=== PATIENT | female | born 2000 | race Two or more races ===

== ENCOUNTER 2021-08-14 20:44 | Emergency (ER) | payer OTHER, SELFPAY ==
[2021-08-14 20:51] VITALS: BP 117/52; PULSE 95; RESP 20; TEMP 36.5; O2SAT 97; BMI 22.7
[2021-08-14 21:27] LABS: COVID-19 Test Negative (Negative)
[2021-08-15 02:17] VITALS: BP 110/58; PULSE 91; RESP 18; O2SAT 98
--- NOTE | 2021-08-15 04:03 | ED.GENADULT ---
HPI - General Adult General Chief complaint: Upper Respiratory Symptoms Stated complaint: left ear pain Time Seen by Provider: 08/15/21 03:51 Source: patient Mode of arrival: ambulatory Limitations: no limitations History of Present Illness HPI narrative: 21-year-old female who presents emergency department for evaluation of right ear pain x4 days, sore throat, cough, rhinorrhea. Patient states that she has had pain in her right ear for approximately 4 days. She states the pain is intermittent, sharp worse if she pushes on her right ear. The pain is 8/10 at its worst. She also states she has some slight decreased hearing in her right ear. She has had a runny nose and a nonproductive cough. She states she also has a sore throat. She denied chest pain, shortness of breath, dyspnea on exertion. She states that when she was a child she used to get frequent ear infections. She did have myringotomy tubes. Related Data Previous Rx's Medication Instructions Recorded amoxicillin 500 mg capsule 1,000 mg PO BID 10 Days #40 cap 08/15/21 zqbamlwy-cnulyrjrw-kgjyojeap 3.5 4 drp OTIC (EAR) LEFT TID 10 Days 08/15/21 mg-10,000 unit/mL-1 % ear #10 ml drops,susp Allergies Allergy/AdvReac Type Severity Reaction Status Date / Time No Known Allergies Allergy Unverified 05/16/20 16:47 [No Known Allergies*] Review of Systems Review of Systems: Yes all other systems are reviewed and are negative [facility] Past Medical History [facility] Narrative: Past medical history: Frequent ear infections as a child with myringotomy tubes. Past surgical history: Myringotomy tubes. Social history: She states she works in a [employer]. denies tobacco use, she does not drink alcohol and she does not use drugs. Social History Social History Alcohol intake: never Patient Tobacco Use Status: Never used Tobacco Smoked in Last 30 Days: No Advance Directives: No Physical Exam Vital Signs: Vital Signs: Last Vital Signs Temp 97.7 F 08/14/21 20:51 Pulse 91 08/15/21 02:17 Resp 18 08/15/21 02:17 BP 110/58 L 08/15/21 02:17 Pulse Ox 98 08/15/21 02:17 BMI result Body Mass Index 22.7 Const: General: cooperative and no acute distress Orientation/consciousness: oriented to person and oriented to place Limitations: no limitations HENMT: Head: Yes normal to inspection, Yes normocephalic and Yes atraumatic Ears: external ear abnormal auricular tenderness and pain with movement of external ear and TM abnormal (Right) bulging, erythematous and with loss of landmarks General nose exam: Normal external nose present Face and sinus: Yes normal facial exam Mouth: Normal oral and palatal mucosa present Throat: Yes posterior oropharynx normal Eyes: General: appearance normal, both eyes and all related structures Pupils: Equal, round and reactive pupils present Neck: Neck: Yes normal visual inspection, Yes no lymphadenopathy, Yes trachea midline and Yes supple Chest: Chest palpation & inspection: normal inspection of the chest and normal palpation of entire chest wall Resp: Effort & Inspection: normal respiratory effort and able to speak in complete sentences Auscultation: clear to auscultation bilaterally Cardio: Rate: regular rate Rhythm: regular rhythm Heart sounds: S1 normal heart sound present, S2 normal heart sound present and no murmurs GI: Inspection: Yes normal to inspection Palpation (GI): Soft to palpation, nontender and no guarding Auscultation: normal bowel sounds : General: Yes no CVA tenderness Back/Spine/Pelvis: Back: no CVA tenderness Skin: General skin exam: no rashes or lesions noted Neuro: General: oriented to person and oriented to place Cranial nerves: Yes CN's II-XII intact bilaterally and Yes Equal, round and reactive pupils present Cognition (Neuro): normal cognition Motor exam (neuro): 5/5 motor strength present throughout Extrem: General: Yes normal to inspection Psych: Appearance: grossly normal Speech and movement: Normal speech and movement present Affect: normal affect Attitude: cooperative Thought process: Normal thought process present Thought content: Normal thought content present Course Course Course Narrative: 21-year-old female who presents emergency department for evaluation of right ear pain x4 days, sore throat, cough, rhinorrhea. Initial vital signs and repeat vital signs were unremarkable. Patient's exam did reveal tenderness with palpation of her external ear as well as bulging, erythema and loss of landmarks of the right tympanic membrane. Patient's presentation is consistent with otitis externa and otitis media. Patient was treated with Cortisporin drops 4 drops 3 times a day for 10 days to the right ear and amoxicillin 1000 mg twice a day for 10 days. She was advised to take Tylenol and ibuprofen for pain. She was given printed and verbal instructions and discharged home. Medical Decision Making Lab Data Labs: Lab Results 08/14/21 Range/Units Unknown COVID-19 (NIKOLAS) Negative (Negative) COVID-19 Clin Com See Note Discharge Plan Discharge Clinical Impression: Otitis externa Qualifiers: Otitis externa type: unspecified type Chronicity: acute Laterality: right Qualified Code(s): H60.501 - Unspecified acute noninfective otitis externa, right ear Otitis media Qualifiers: Otitis media type: unspecified Chronicity: acute Qualified Code(s): H66.90 - Otitis media, unspecified, unspecified ear Patient Disposition: Home, Self-Care Instructions: Otitis Externa (ED), How to Use Ear Drops (ED), Ear Infection (ED) Additional Instructions: Your examination revealed that your ear is tender in this is consistent with an external ear infection of the ear canal (otitis externa). Your ear drum is also red and swollen. This is consistent with an infection of the middle ear (otitis media). Use the Cortisporin ear drops, 4 drops 3 times a day in the right ear for 10 days. Take amoxicillin 1000 mg twice a day for 10 days. Take ibuprofen 200 mg pills, 3 pills every 6 hours as needed for pain. Take Tylenol (acetaminophen) 500 mg pills, 2 pills every 4 to 6 hours as needed for pain. Follow-up with your doctor in 2 days. Please return to the emergency department if your symptoms get worse or if you develop any symptoms that are concerning to you. Please see work note. Prescriptions: New amoxicillin 500 mg capsule 1,000 mg PO BID 10 Days Qty: 40 RF: 0 ynxuhvcp-ulmxnytqp-DE 3.5-10,000-1 mg/mL-unit/mL-% drops,suspension 4 drp otic (ear) left TID 10 Days Qty: 10 RF: 0 Stand Alone Forms: Work/School Release Interventions: LWBS Worksheet Last Done: 08/14/21 23:30
== END 2021-08-15 04:34 | disposition home or self-care (01) ==
PROVIDERS: Emergency Provider Emergency Medicine Emergency Medical Services
DX: H60.501 Unspecified acute noninfective otitis externa, right ear (principal); H66.91 Otitis media, unspecified, right ear; Z20.822 Contact with and (suspected) exposure to COVID-19; J02.9 Acute pharyngitis, unspecified
CPT/HCPCS: 36415; 87635; 99283; 99284

== ENCOUNTER 2021-09-23 10:39 | Outpatient (REF) | payer OTHER, SELFPAY ==
[2021-09-23 11:10] LABS: Binax Internal Control QC Valid; Binax Now Covid-19 Ag Negative (Negative)
== END 2021-09-23 10:40 | disposition home or self-care (01) ==
LOC: HO.LAB 10:39
PROVIDERS: Visit Provider Internal Medicine
DX: Z20.822 Contact with and (suspected) exposure to COVID-19 (principal)
CPT/HCPCS: C9803

== ENCOUNTER 2021-10-07 17:45 | Emergency (ER) | payer OTHER, SELFPAY ==
[2021-10-07 17:47] VITALS: BP 111/66; PULSE 77; RESP 18; TEMP 36.4; O2SAT 97; BMI 27.9
--- NOTE | 2021-10-07 21:04 | ED_ITS ---
HPI - General Adult General Chief complaint: Skin/Abscess/Foreign Body Stated complaint: neck was burnt on neck Time Seen by Provider: 10/07/21 21:00 Source: patient Mode of arrival: ambulatory Limitations: no limitations History of Present Illness HPI narrative: 21-year-old female presents to the ED for left lateral neck burn. Patient states she was at work and a glass bottle broke and hot tea fell on the left side of her neck. Patient states this occurred around 3:30 p.m. she denies any other trauma. Patient states she put cool water on area and got better. Patient unaware of last tetanus shot. Patient has no other complaints. Patient rash has no blisters, weeping, redness, pus discharge, or foul odor. Related Data Previous Rx's Medication Instructions Recorded amoxicillin 500 mg capsule 1,000 mg PO BID 10 Days #40 cap 08/15/21 iysymlry-xqcjbjmqu-kqjzhaaus 3.5 4 drp OTIC (EAR) LEFT TID 10 Days 08/15/21 mg-10,000 unit/mL-1 % ear #10 ml drops,susp bacitracin 500 unit/gram topical 1 appl TOPICAL TID 7 Days #30 g 10/07/21 ointment Allergies Allergy/AdvReac Type Severity Reaction Status Date / Time No Known Allergies Allergy Verified 10/07/21 17:47 [No Known Allergies*] Review of Systems Review of Systems: Neck burn Yes all other systems are reviewed and are negative [facility] Social History Social History Alcohol intake: never Patient Tobacco Use Status: Never used Tobacco Advance Directives: No Advance Directives Information Provided: Yes Patient : No Physical Exam Vital Signs: Vital Signs: Last Vital Signs Temp 97.5 F 10/07/21 17:47 Pulse 77 10/07/21 17:47 Resp 18 10/07/21 17:47 BP 111/66 10/07/21 17:47 Pulse Ox 97 10/07/21 17:47 BMI result Body Mass Index 27.9 Const: General: cooperative, healthy appearing, comfortable, no acute distress, well developed, alert, awake and Physically active Or ientation/consciousness: patient oriented x3 HENMT: Head: Yes normal to inspection, Yes No palpable skull fracture present, Yes normocephalic, Yes atraumatic and No abrasion Eyes: General: appearance normal, both eyes and all related structures Neck: Neck images: 1. 1st degree superficial burn. Negative for any blisters. Burn is not circumferential. Chest: Chest palpation & inspection: normal inspection of the chest and normal palpation of entire chest wall Resp: Effort & Inspection: normal respiratory effort and able to speak in complete sentences Auscultation: clear to auscultation bilaterally Cardio: Jugular venous distension: no JVD Heart sounds: S1 normal heart sound present and S2 normal heart sound present GI: Inspection: Yes normal to inspection and No abdominal wall ecchymosis Palpation (GI): Soft to palpation, not firm, nontender, no guarding and not rigid : General: No CVA tenderness and Yes no CVA tenderness Back/Spine/Pelvis: Back: no CVA tenderness, No CVA tenderness and No back tenderness Skin: General skin exam: no rashes or lesions noted and elasticity normal Neuro: General: patient oriented x3, gait normal and CN's II-XI intact bilaterally Cranial nerves: Yes CN's II-XII intact bilaterally Extrem: General: Yes normal to inspection and Yes full ROM Psych: Appearance: grossly normal, well kempt and not disheveled Course Course Course Narrative: First degree burn. Reevaluation(s) Reevaluation #1: Tetanus ordered. Patient given bacitracin ointment. Patient is safe for discharge Time: 21:07 Medical Decision Making MDM Narrative Medical decision making narrative: 1st degree thermal burn Discharge Plan Discharge Clinical Impression: First degree burn, Thermal burn Patient Disposition: Home, Self-Care Instructions: Superficial Burn (ED) Additional Instructions: Return to the ED immediately for neck swelling, blisters, pus discharge, foul odor, fever, chills, chest pain, shortness of breath, drooling, change in voice, or any other concerning symptoms. Prescriptions: New bacitracin 500 unit/gram ointment 1 appl topical TID 7 Days Qty: 30 0RF No Action amoxicillin 500 mg capsule 1,000 mg PO BID 10 Days Qty: 40 0RF cvupsfdd-zmieaeyly-DJ 3.5-10,000-1 mg/mL-unit/mL-% drops,suspension 4 drp otic (ear) left TID 10 Days Qty: 10 0RF Referrals: [facility] [Outside] - 2 days (1st degree thermal burn on lateral neck occured at work) Stand Alone Forms: Work/School Release Interventions: ED Discharge Assessment Last Done: 10/07/21 21:25 Discharge Date/Time: 10/07/21 21:28 Print Language: Maltese
[2021-10-07] MEDS: Diphth,Pertus(ACell),Tet Adult 0.5 ML SYRINGE IM (21:19)
== END 2021-10-07 21:28 | disposition home or self-care (01) ==
PROVIDERS: Emergency Provider Internal Medicine; PCP Internal Medicine
DX: T20.17XA Burn of first degree of neck, initial encounter (principal); T31.0 Burns involving less than 10% of body surface; M54.2 Cervicalgia; X12.XXXA Contact with other hot fluids, initial encounter; Y93.9 Activity, unspecified; Y92.9 Unspecified place or not applicable; Y99.0 Civilian activity done for income or pay; Z79.899 Other long term (current) drug therapy
CPT/HCPCS: 90471; 90715; 99284

== ENCOUNTER 2021-11-23 23:39 | Emergency (ER) | payer OTHER, SELFPAY ==
--- NOTE | 2021-11-23 23:52 | ECG_ITS ---
Test Reason : chest pain Blood Pressure : / mmHG Vent. Rate : 082 BPM Atrial Rate : 082 BPM P-R Int : 160 ms QRS Dur : 072 ms QT Int : 374 ms P-R-T Axes : 057 -01 035 degrees QTc Int : 436 ms Normal sinus rhythm Minimal voltage criteria for LVH, may be normal variant ( R in aVL ) Borderline ECG No previous ECGs available Referred By: Generic ED Physician Electronically Signed By:LUCÍA COX
[2021-11-23 23:54] VITALS: BP 106/41; PULSE 74; RESP 18; TEMP 36.6; O2SAT 96; BMI 26.3
--- NOTE | 2021-11-24 00:04 | ED_ITS ---
HPI - Chest Pain General Chief Complaint: Chest Pain Stated Complaint: Chest Pain Time Seen by Provider: 11/24/21 00:04 Source: patient Mode of arrival: ambulatory Limitations: no limitations History of Present Illness HPI narrative: Patient no significant past medical history complaining of pain in mid chest for last few weeks increases on movement and palpation no shortness of breath no trauma no cough no fever no chills Related Data Previous Rx's Medication Instructions Recorded amoxicillin 500 mg capsule 1,000 mg PO BID 10 Days #40 cap 08/15/21 rhetdxkm-ozecmmreo-pwuxokrpj 3.5 4 drp OTIC (EAR) LEFT TID 10 Days 08/15/21 mg-10,000 unit/mL-1 % ear #10 ml drops,susp bacitracin 500 unit/gram topical 1 appl TOPICAL TID 7 Days #30 g 10/07/21 ointment ibuprofen 600 mg tablet 600 mg PO Q6H PRN #20 tab 11/24/21 Allergies Allergy/AdvReac Type Severity Reaction Status Date / Time No Known Allergies Allergy Verified 10/07/21 17:47 [No Known Allergies*] Review of Systems Review of Systems: Yes all other systems are reviewed and are negative [facility] Social History Social History Alcohol intake: never Patient Tobacco Use Status: Never used Tobacco Advance Directives: No Advance Directives Information Provided: No Physical Exam Vital Signs: Vital Signs: Last Vital Signs Temp 97.9 F 11/23/21 23:54 Pulse 76 11/24/21 00:07 Resp 19 11/24/21 00:07 BP 124/48 L 11/24/21 00:07 Pulse Ox 97 11/24/21 00:07 BMI result Body Mass Index 26.3 Appearance: Alert. Oriented X3. No acute distress. ENT: Pharynx normal. Oral Mucosa moist Neck: Normal inspection. Neck supple. CVS: Normal heart rate and rhythm. Pulses normal. Respiratory: No respiratory distress. Second ICS tenderness, Equal air entry bilateral, no wheezing/rales/rhonchi Abdomen: Soft and nontender. Bowel sounds are present, no mass palpable, no CVA tenderness Skin: Skin warm and dry. Normal skin color. Normal skin turgor. Extremities: No lower extremity edema. No calf tenderness Neuro: Oriented X 3. MDM - Chest Pain MDM Narrative Medical decision making narrative: Patient clinically costochondritis with no risk factor for coronary artery disease discharge patient home on NSAID Lab Data Attestation: I reviewed the patient's lab results. Result diagrams: 11/24/21 00:01 11/24/21 00:01 Labs: Lab Results 11/24/21 11/24/21 11/24/21 Range/Units 00:01 00:01 00:01 WBC 8.7 (4.8-10.8) X10*3/uL RBC 4.42 (4.20-5.50) X10*6/uL Hgb 12.1 (12.0-16.0) g/dl Hct 36.5 L (37.0-47.0) % MCV 82.6 (80.0-98.0) fL MCH 27.4 (27.0-33.0) pg MCHC 33.2 (31.0-35.0) g/dl RDW 14.5 (11.0-16.0) % Plt Count 262 (160-400) X10*3/uL MPV 10.6 (9.4-12.3) fL Immature Gran % (Auto) 0.2 (0.0-0.4) % Neut % (Auto) 52.4 (45-73) % Lymph % (Auto) 39.0 (20-40) % [place] % (Auto) 6.1 (2-11) % Eos % (Auto) 1.4 (0-4) % Baso % (Auto) 0.9 (0-2) % Lymph # (Auto) 3.4 (1.2-4.9) X10*3/uL [place] # (Auto) 0.5 (0.1-1.2) X10*3/uL Eos # (Auto) 0.1 (0.0-0.4) X10*3/uL Baso # (Auto) 0.1 (0.0-0.2) X10*3/uL Abs Immat Gran (auto) 0.02 (0.00-0.03) X10*3/uL Absolute Neuts (auto) 4.5 (2.0-8.3) x10*3/uL Absolute Nucleated RBC 0.000 (0.0-0.012) X10*3/uL Nucleated RBC % (auto) 0.0 (0.0-0.2) /100WBC Sodium 140 (135-145) mmol/L Potassium 4.0 (3.3-5.1) mmol/L Chloride 106 (96-108) mmol/L Carbon Dioxide 24 (22-29) mmol/L Anion Gap 14 (12-20) BUN 15 (9-16) mg/dL Creatinine 0.74 (0.5-1.4) mg/dL Estim Creat Clear Calc 130.1 Estimated GFR > 60 Random Glucose 72 (60-115) mg/dL Calcium 9.4 (8.4-10.2) mg/dL Total Bilirubin 0.2 (0.0-1.0) mg/dL Direct Bilirubin < 0.2 (0.0-0.5) mg/dL AST 18 (5-31) U/L ALT 16 (0-31) U/L Alkaline Phosphatase 93 (39-117) U/L Troponin I High Sens < 3.5 (<3.5-17.0) ng/L Total Protein 8.1 H (6.5-8.0) g/dL Albumin 4.2 (3.5-5.0) g/dL Lipase 39 (8-78) U/L Urine Color Urine Appearance Urine pH (5.0-8.0) Ur Specific [place] (1.005-1.025) Urine Protein (NEG-TRACE) MG/DL Urine Glucose (UA) (NEG) MG/DL Urine Ketones (NEG) MG/DL Urine Blood (NEG) Urine Nitrite (NEG) Ur Leukocyte Esterase (NEG) 11/24/21 Range/Units 00:07 WBC (4.8-10.8) X10*3/uL RBC (4.20-5.50) X10*6/uL Hgb (12.0-16.0) g/dl Hct (37.0-47.0) % MCV (80.0-98.0) fL MCH (27.0-33.0) pg MCHC (31.0-35.0) g/dl RDW (11.0-16.0) % Plt Count (160-400) X10*3/uL MPV (9.4-12.3) fL Immature Gran % (Auto) (0.0-0.4) % Neut % (Auto) (45-73) % Lymph % (Auto) (20-40) % [place] % (Auto) (2-11) % Eos % (Auto) (0-4) % Baso % (Auto) (0-2) % Lymph # (Auto) (1.2-4.9) X10*3/uL [place] # (Auto) (0.1-1.2) X10*3/uL Eos # (Auto) (0.0-0.4) X10*3/uL Baso # (Auto) (0.0-0.2) X10*3/uL Abs Immat Gran (auto) (0.00-0.03) X10*3/uL Absolute Neuts (auto) (2.0-8.3) x10*3/uL Absolute Nucleated RBC (0.0-0.012) X10*3/uL Nucleated RBC % (auto) (0.0-0.2) /100WBC Sodium (135-145) mmol/L Potassium (3.3-5.1) mmol/L Chloride (96-108) mmol/L Carbon Dioxide (22-29) mmol/L Anion Gap (12-20) BUN (9-16) mg/dL Creatinine (0.5-1.4) mg/dL Estim Creat Clear Calc Estimated GFR Random Glucose (60-115) mg/dL Calcium (8.4-10.2) mg/dL Total Bilirubin (0.0-1.0) mg/dL Direct Bilirubin (0.0-0.5) mg/dL AST (5-31) U/L ALT (0-31) U/L Alkaline Phosphatase (39-117) U/L Troponin I High Sens (<3.5-17.0) ng/L Total Protein (6.5-8.0) g/dL Albumin (3.5-5.0) g/dL Lipase (8-78) U/L Urine Color YELLOW Urine Appearance CLEAR Urine pH 7.0 (5.0-8.0) Ur Specific [place] 1.025 (1.005-1.025) Urine Protein NEG (NEG-TRACE) MG/DL Urine Glucose (UA) NEG (NEG) MG/DL Urine Ketones NEG (NEG) MG/DL Urine Blood NEG (NEG) Urine Nitrite NEG (NEG) Ur Leukocyte Esterase NEG (NEG) ECG Data ECG #1: Attestation: I personally reviewed and interpreted this ECG as follows: Interpretation: Normal sinus rhythm heart rate 82 beats per minute normal intervals normal axis no acute history of itching no acute ischemia Discharge Plan Discharge Clinical Impression: Costalchondritis Patient Disposition: Home, Self-Care Instructions: Costochondritis (ED) Additional Instructions: Take ibuprofen for pain Follow-up with your PCP as needed Prescriptions: New ibuprofen 600 mg tablet 600 mg PO Q6H PRN (Reason: pain) Qty: 20 0RF No Action amoxicillin 500 mg capsule 1,000 mg PO BID 10 Days Qty: 40 0RF cmjxwoeo-zwujnylcm-EL 3.5-10,000-1 mg/mL-unit/mL-% drops,suspension 4 drp otic (ear) left TID 10 Days Qty: 10 0RF bacitracin 500 unit/gram ointment 1 appl topical TID 7 Days Qty: 30 0RF Interventions: ED Discharge Assessment Last Done: 11/24/21 00:33
[2021-11-24 00:06] LABS: Basophils Absolute Auto 0.1 X10*3/uL (0.0-0.2); Basophils Percent Auto 0.9 % (0-2); Eosinophils Absolute Auto 0.1 X10*3/uL (0.0-0.4); Eosinophils Percent Auto 1.4 % (0-4); Hematocrit 36.5 % (37.0-47.0); Hemoglobin 12.1 g/dl (12.0-16.0); Imm Gran Abs Auto 0.02 X10*3/uL (0.00-0.03); Imm Gran Pct Auto 0.2 % (0.0-0.4); Lymphocytes Absolute Auto 3.4 X10*3/uL (1.2-4.9); MANUAL DIFF FLAG NO; Mean Corpuscular HGB Conc 33.2 g/dl (31.0-35.0); Mean Corpuscular Hemoglobin 27.4 pg (27.0-33.0); Mean Corpuscular Volume 82.6 fL (80.0-98.0); Mean Platelet Volume 10.6 fL (9.4-12.3); Monocytes Absolute Auto 0.5 X10*3/uL (0.1-1.2); Monocytes Percent Auto 6.1 % (2-11); Neutrophils Absolute Auto 4.5 x10*3/uL (2.0-8.3); Neutrophils Percent Auto 52.4 % (45-73); Platelet Count 262 X10*3/uL (160-400); Red Blood Count 4.42 X10*6/uL (4.20-5.50); Red Cell Distribution Width 14.5 % (11.0-16.0); White Blood Count 8.7 X10*3/uL (4.8-10.8)
[2021-11-24 00:07] VITALS: BP 124/48; PULSE 76; RESP 19; O2SAT 97
[2021-11-24 00:15] LABS: Appearance Urine CLEAR; Color Urine YELLOW; Glucose Urine UA NEG (NEG); Leukocyte Esterase Urine NEG (NEG); Nitrite Urine NEG (NEG); Specific Gravity - Urine 1.025 (1.005-1.025); Urine Blood NEG (NEG); Urine Ketones NEG (NEG); Urine Protein NEG (NEG-TRACE)
[2021-11-24 00:23] LABS: Alanine Aminotransferase 16 U/L (0-31); Albumin Level 4.2 g/dL (3.5-5.0); Alkaline Phosphatase 93 U/L (39-117); Anion Gap 14 (12-20); Aspartate Amino Transferase 18 U/L (5-31); Bilirubin Direct < 0.2 mg/dL (0.0-0.5); Bilirubin Total 0.2 mg/dL (0.0-1.0); Blood Urea Nitrogen 15 mg/dL (9-16); Calcium 9.4 mg/dL (8.4-10.2); Carbon Dioxide 24 mmol/L (22-29); Chloride 106 mmol/L (96-108); Creatinine Clr Calc Pharmacy 130.1; Estimated Glomerular Filt Rate > 60; Glucose Random 72 mg/dL (60-115); Lipase 39 U/L (8-78); Sodium 140 mmol/L (135-145); Total Protein 8.1 g/dL (6.5-8.0)
[2021-11-24 00:27] LABS: Troponin-I High Sensitivity < 3.5 ng/L (<3.5-17.0)
[2021-11-24] MEDS: Ketorolac Tromethamine 60 MG/2 ML VIAL IM (00:29)
--- NOTE | 2021-11-24 00:31 | PC.NURSE ---
Pt medicated with 60mg toradol IM. Skin wd, resp reg and even. NSR on tele, NAD.
== END 2021-11-24 00:36 | disposition home or self-care (01) ==
PROVIDERS: Emergency Provider Internal Medicine; PCP Internal Medicine
DX: M94.0 Chondrocostal junction syndrome [Tietze] (principal)
CPT/HCPCS: 36415; 80048; 80076; 81003; 83690; 84484; 85025; 93005; 96372; 99284; 99285; J1885

== ENCOUNTER 2022-03-03 20:24 | Emergency (ER) | payer OTHER, SELFPAY ==
--- NOTE | ~2022-03-03 | XR_ITS ---
EXAMINATION: XR CHEST CLINICAL INFORMATION: Chest tightness COMPARISON: None TECHNIQUE: Frontal view of the chest was obtained. FINDINGS: No significant abnormality is noted involving the heart, lungs, mediastinum, bony thorax or soft tissues. XR/XR chest 1V IMPRESSION: Unremarkable examination.
[2022-03-03 20:53] VITALS: BMI 27.1
--- NOTE | 2022-03-03 20:54 | ECG_ITS ---
Test Reason : CHEST PAIN Blood Pressure : / mmHG Vent. Rate : 073 BPM Atrial Rate : 073 BPM P-R Int : 164 ms QRS Dur : 072 ms QT Int : 382 ms P-R-T Axes : 042 -11 016 degrees QTc Int : 420 ms Normal sinus rhythm Minimal voltage criteria for LVH, may be normal variant ( R in aVL ) Borderline ECG When compared with ECG of 23-NOV-2021 23:41, No significant change was found Referred By: Generic ED Physician Electronically Signed By:Maldonado Cao
[2022-03-03 21:20] LABS: COVID-19 Test Negative (Negative)
[2022-03-03 22:16] VITALS: BP 115/57; PULSE 84; RESP 20; TEMP 36.2; O2SAT 99; BMI 21.1
[2022-03-03 23:30] LABS: Influenza A Negative (Negative); Influenza B2 Negative (Negative)
[2022-03-03 23:53] LABS: UPreg QC Valid YES; Urine Pregnancy NEGATIVE (NEGATIVE)
[2022-03-04 00:57] VITALS: BP 117/54; PULSE 88; RESP 16; TEMP 36.6; O2SAT 97
--- NOTE | 2022-03-04 01:12 | ED.URI ---
HPI - URI/Sore Throat General Chief Complaint: Upper Respiratory Symptoms Stated Complaint: chest pain, no voice Time Seen by Provider: 03/03/22 21:46 Source: patient Mode of arrival: ambulatory Limitations: no limitations History of Present Illness HPI Narrative: Patient with sore throat for last 2 days lost voice dry cough no fever no chills no history of asthma history of same last year no other significant medical history Related Data Previous Rx's Medication Instructions Recorded amoxicillin 500 mg capsule 1,000 mg PO BID 10 days #40 caps 08/15/21 cslognpm-yfytlapiq-ehhumjcny 3.5 4 drp otic (ear) left TID 10 days 08/15/21 mg-10,000 unit/mL-1 % ear #10 mL drops,susp bacitracin 500 unit/gram topical 1 appl topical TID 7 days #30 grams 10/07/21 ointment ibuprofen 600 mg tablet 600 mg PO Q6H PRN pain #20 tabs 11/24/21 amoxicillin 875 mg-potassium 1 tab PO BID #20 tabs 03/04/22 clavulanate 125 mg tablet codeine 10 mg-guaifenesin 100 mg/5 10 ml PO Q6H PRN cough #237 mL 03/04/22 mL oral liquid Allergies Allergy/AdvReac Type Severity Reaction Status Date / Time No Known Allergies Allergy Verified 10/07/21 17:47 [No Known Allergies*] Review of Systems Review of Systems: Yes all other systems are reviewed and are negative [facility] Social History Social History Alcohol intake: never Patient Tobacco Use Status: Never used Tobacco Advance Directives: No Physical Exam Vital Signs: Vital Signs: Last Vital Signs Temp 97.9 F 03/04/22 00:57 Pulse 88 03/04/22 00:57 Resp 16 03/04/22 00:57 BP 117/54 L 03/04/22 00:57 Pulse Ox 97 03/04/22 00:57 O2 Del Method 03/04/22 00:57 BMI result Body Mass Index 21.1 Appearance: Alert. Oriented X3. No acute distress. ENT: Pharynx normal. Oral Mucosa moist muffled voice Neck: Normal inspection. Neck supple. Upper cervical lymphadenopathy+ CVS: Normal heart rate and rhythm. Pulses normal. Respiratory: No respiratory distress. Equal air entry bilateral, no wheezing/rales/rhonchi Abdomen: Soft and nontender. Bowel sounds are present, Skin: Skin warm and dry. Normal skin color. Normal skin turgor. Extremities: No lower extremity edema. No calf tenderness Neuro: Oriented X 3. MDM - URI/Sore Throat MDM Narrative Medical decision making narrative: Patient with acute laryngitis discharge patient home on Augmentin and cough syrup codeine patient chest x-ray negative for infiltrate Lab Data Labs: Lab Results 03/03/22 03/03/22 03/03/22 Range/Units 21:01 22:03 22:59 Urine Test NEGATIVE (NEGATIVE) COVID-19 ([facility]AS) Negative (Negative) COVID-19 Clin Com See Note Influenza Type A (YURY) Negative (Negative) Influenza Type B (YURY) Negative (Negative) Influenza A & B Note See Note Discharge Plan Discharge Clinical Impression: Laryngitis Patient Disposition: Home, Self-Care Instructions: Laryngitis (ED) Additional Instructions: Take antibiotic as prescribed Cough syrup as advised for the pain Drink plenty of fluids Prescriptions: New codeine-guaifenesin 10-100 mg/5 mL liquid 10 ml PO Q6H PRN (Reason: cough) Qty: 237 0RF amoxicillin-pot clavulanate 875-125 mg tablet 1 tab PO BID Qty: 20 0RF No Action amoxicillin 500 mg capsule 1,000 mg PO BID 10 Days Qty: 40 0RF shqpxgkt-usgjuwwjq-ZT 3.5-10,000-1 mg/mL-unit/mL-% drops,suspension 4 drp otic (ear) left TID 10 Days Qty: 10 0RF bacitracin 500 unit/gram ointment 1 appl topical TID 7 Days Qty: 30 0RF ibuprofen 600 mg tablet 600 mg PO Q6H PRN (Reason: pain) Qty: 20 0RF Stand Alone Forms: Work/School Release
[2022-03-04] MEDS: Amoxicillin/Potassium Clav 875 MG TABLET PO (02:04)
[2022-03-04] MEDS: guaiFEN/Codeine SF 200/20/10ML 10 ML LIQUID PO (02:07)
== END 2022-03-04 02:08 | disposition home or self-care (01) ==
PROVIDERS: Emergency Provider Internal Medicine
DX: J04.0 Acute laryngitis (principal); Z20.822 Contact with and (suspected) exposure to COVID-19; J02.9 Acute pharyngitis, unspecified; J45.909 Unspecified asthma, uncomplicated
CPT/HCPCS: 71045; 81025; 87502; 87635; 93005; 99283

== ENCOUNTER 2022-07-25 22:35 | Emergency (ER) | payer OTHER, SELFPAY ==
[2022-07-25 22:42] VITALS: BP 94/49; PULSE 79; RESP 18; TEMP 36.8; O2SAT 97; BMI 28.3
[2022-07-25 23:33] LABS: Basophils Percent Auto 0.4 % (0-2); Eosinophils Absolute Auto 0.1 X10*3/uL (0.0-0.4); Eosinophils Percent Auto 0.6 % (0-4); Hematocrit 32.9 % (37.0-47.0); Hemoglobin 11.1 g/dl (12.0-16.0); Imm Gran Abs Auto 0.06 X10*3/uL (0.00-0.03); Imm Gran Pct Auto 0.6 % (0.0-0.4); Lymphocytes Absolute Auto 2.8 X10*3/uL (1.2-4.9); Lymphocytes Percent Auto 29.3 % (20-40); MANUAL DIFF FLAG NO; Mean Corpuscular HGB Conc 33.7 g/dl (31.0-35.0); Mean Corpuscular Hemoglobin 28.1 pg (27.0-33.0); Mean Corpuscular Volume 83.3 fL (80.0-98.0); Mean Platelet Volume 11.4 fL (9.4-12.3); Monocytes Absolute Auto 0.5 X10*3/uL (0.1-1.2); Neutrophils Percent Auto 64.1 % (45-73); Platelet Count 201 X10*3/uL (160-400); Red Blood Count 3.95 X10*6/uL (4.20-5.50); Red Cell Distribution Width 13.2 % (11.0-16.0); White Blood Count 9.4 X10*3/uL (4.8-10.8)
--- NOTE | 2022-07-25 23:52 | ED.PREGNANCY ---
HPI - General Chief complaint: Vaginal Bleeding Stated complaint: 23 wks ..bleeding Time Seen by Provider: 07/25/22 23:35 Source: patient Mode of arrival: ambulatory Limitations: no limitations History of Present Illness HPI Narrative: 22-year-old female 23 weeks 3 days based on due date of 11/19/2022 who presents emergency department for evaluation of abdominal cramping and vaginal bleeding. Patient states that she was moving furniture around at home and then developed a cramping sensation in her upper abdomen. She states she went to the bathroom, urinated when she wiped herself she had bright red blood on the toilet paper. She states that she wiped a twice with bright red blood. She states that since arrival in the emergency room, she has been having intermittent cramping of her upper abdomen. She states the cramping will last 5 minutes since she has had multiple episodes. She points to the top of her abdomen when asked to localize the cramping sensation, she states that pain is moderate intensity. The patient has a known vaginal discharge and was told that she has Trichomonas. The patient is supposed to take oral medications for 1 week however she has not picked up the prescription. She states that she was supposed to mixing picker tender the prescription today but back dizzy but will pick it up tomorrow and start this medication MD Complaint: abdominal pain, vaginal bleeding and vaginal discharge Onset (ago): minute(s) (30 prior I) Pain Consistency: intermittent Location: abdomen (Upper Abdo) Severity: moderate Severity scale (1-10): 5 Quality: Cramping Radiation: pelvis Relieving factors: none Exacerbating factors: none Associated symptoms: nausea, vaginal discharge and abdominal pain Vaginal discharge: other (Thick yellow) Vaginal bleeding: light Patient : Yes Expected Date of Delivery: 11/19/22 Number of Weeks : 23w 3d care: followed by OB ([facility]) Related Data Previous Rx's Medication Instructions Recorded amoxicillin 500 mg capsule 1,000 mg PO BID 10 days #40 caps 08/15/21 kdleimsb-yisimpclg-gzetasuto 3.5 4 drp otic (ear) left TID 10 days 08/15/21 mg-10,000 unit/mL-1 % ear #10 mL drops,susp bacitracin 500 unit/gram topical 1 appl topical TID 7 days #30 grams 10/07/21 ointment ibuprofen 600 mg tablet 600 mg PO Q6H PRN pain #20 tabs 11/24/21 amoxicillin 875 mg-potassium 1 tab PO BID #20 tabs 03/04/22 clavulanate 125 mg tablet codeine 10 mg-guaifenesin 100 mg/5 10 ml PO Q6H PRN cough #237 mL 03/04/22 mL oral liquid Allergies Allergy/AdvReac Type Severity Reaction Status Date / Time No Known Allergies Allergy Verified 10/07/21 17:47 [No Known Allergies*] Review of Systems Review of Systems: Yes all other systems are reviewed and are negative [facility] Past Medical History [facility] Narrative: Past medical history: 23 weeks 3 days . Past surgical history: 2 years prior social history: She denies tobacco, alcohol and drug use. Social History Social History Alcohol intake: never Patient Tobacco Use Status: Never used Tobacco Advance Directives: No Advance Directives Information Provided: No Patient : Yes Physical Exam Vital Signs: Vital Signs: Last Vital Signs Temp 98.3 F 07/25/22 22:42 Pulse 79 07/25/22 22:42 Resp 18 07/25/22 22:42 BP 94/49 L 07/25/22 22:42 Pulse Ox 97 07/25/22 22:42 O2 Del Method 07/25/22 22:42 BMI result Body Mass Index 28.3 Const: General: cooperative and no acute distress Orientation/consciousness: oriented to person and oriented to place Limitations: no limitations HEENT: Head: Yes normal to inspection, Yes normocephalic and Yes atraumatic Ears: external ears normal General nose exam: Normal external nose present Face and sinus: Yes normal facial exam Mouth: Normal oral and palatal mucosa present Throat: Yes posterior oropharynx normal Eyes: General: appearance normal, both eyes and all related structures Pupils: Equal, round and reactive pupils present Neck: Neck: Yes normal visual inspection, Yes no lymphadenopathy, Yes trachea midline and Yes supple Chest: Chest palpation & inspection: normal inspection of the chest and normal palpation of entire chest wall Resp: Effort & Inspection: normal respiratory effort and able to speak in complete sentences Auscultation: clear to auscultation bilaterally Cardio: Rate: regular rate Rhythm: regular rhythm Heart sounds: S1 normal heart sound present, S2 normal heart sound present and no murmurs GI: Inspection: Yes normal to inspection Palpation (GI): Soft to palpation, Tenderness to palpation present (GI) (Mild upper abdominal tenderness, gravid uterus) and no guarding Auscultation: normal bowel sounds : Other: External vaginal exam was normal. Speculum exam revealed thick green cervical discharge, cervix is red and inflamed, there was no blood noted in the vagina no blood noted coming from the cervical os cervical os is closed General: Yes no CVA tenderness Back/Spine/Pelvis: Back: no CVA tenderness Skin: General skin exam: no rashes or lesions noted Neuro: General: oriented to person and oriented to place Cranial nerves: Yes CN's II-XII intact bilaterally and Yes Equal, round and reactive pupils present Cognition (Neuro): normal cognition Motor exam (neuro): 5/5 motor strength present throughout Extrem: General: Yes normal to inspection Psych: Appearance: grossly normal Speech and movement: Normal speech and movement present Affect: normal affect Attitude: cooperative Thought process: Normal thought process present Thought content: Normal thought content present Course Course Course Narrative: 22-year-old female 23 weeks 3 days by date, EDC 11/19/2022 who presents emergency department for evaluation of abdominal cramping and bleeding which started after she was moving furniture. Patient describes the cramping as intermittent lasting 5 minutes she has had a least 5 episodes since being in the emergency department. Patient's physical examination revealed tenderness palpation of her upper abdomen, she does have a gravid uterus. Patient's pelvic exam revealed no blood but she does of a thick purulent appearing discharge. She has known Trichomonas and she states that she was supposed to mixing picker tender a prescription today and start the medication but she got too busy. Patient states she will mixing picker tender the prescription tomorrow. Patient's laboratory evaluation revealed mild anemia with an H&H of 11 and 32.9 otherwise was unremarkable. A urinalysis was positive for blood, negative for nitrates, positive for leukocyte esterase. Microscopic revealed 11-20 RBCs, greater than 50 WBCs, 6-10 epithelial cells, trace bacteria. Patient has known Trichomonas and this may explain the positive urinalysis. Patient's blood type is B positive. heart tones were obtained 147 beats per minute. Patient states she can feel the baby moving. 0147: I am concerned the patient may have pre term labor and I did discuss this with [facility] OBGYN however they were unable to accept the patient transfer since they do not have an open NICU at this time. I did discuss transfer with [facility] and they did accept the patient in transfer. We were unable to get a ambulance to transport the patient. I did discuss this with the patient and told her that we could Life Flight her to [facility] however she refused this. She states that her pain is gone and she is no longer bleeding and she wants to go home. I did discuss the possibility of labor with the patient and she understood this discussion. The patient will be discharged home. She states that she will mixing picker tender her medication for the Trichomonas infection tomorrow. I did tell her that if her symptoms return she should have a family member drive her to [facility] where she can be seen by OBGYN patient understood this discussion will be discharged home MDM - OB/Uterine Contractions Lab Data Result diagrams: 07/25/22 23:28 07/25/22 23:28 Labs: Lab Results 07/25/22 07/25/22 07/25/22 Range/Units 23:28 23:28 23:28 WBC 9.4 (4.8-10.8) X10*3/uL RBC 3.95 L (4.20-5.50) X10*6/uL Hgb 11.1 L (12.0-16.0) g/dl Hct 32.9 L (37.0-47.0) % MCV 83.3 (80.0-98.0) fL MCH 28.1 (27.0-33.0) pg MCHC 33.7 (31.0-35.0) g/dl RDW 13.2 (11.0-16.0) % Plt Count 201 (160-400) X10*3/uL MPV 11.4 (9.4-12.3) fL Immature Gran % (Auto) 0.6 H (0.0-0.4) % Neut % (Auto) 64.1 (45-73) % Lymph % (Auto) 29.3 (20-40) % [place] % (Auto) 5.0 (2-11) % Eos % (Auto) 0.6 (0-4) % Baso % (Auto) 0.4 (0-2) % Lymph # (Auto) 2.8 (1.2-4.9) X10*3/uL [place] # (Auto) 0.5 (0.1-1.2) X10*3/uL Eos # (Auto) 0.1 (0.0-0.4) X10*3/uL Baso # (Auto) 0.0 (0.0-0.2) X10*3/uL Abs Immat Gran (auto) 0.06 H (0.00-0.03) X10*3/uL Absolute Neuts (auto) 6.0 (2.0-8.3) x10*3/uL Absolute Nucleated RBC 0.000 (0.0-0.012) X10*3/uL Nucleated RBC % (auto) 0.0 (0.0-0.2) /100WBC Sodium 134 L (135-145) mmol/L Potassium 3.4 (3.3-5.1) mmol/L Chloride 104 (96-108) mmol/L Carbon Dioxide 21 L (22-29) mmol/L Anion Gap 12 (12-20) BUN 6 L (9-16) mg/dL Creatinine 0.60 (0.5-1.4) mg/dL Estim Creat Clear Calc 143.2 Estimated GFR > 60 Random Glucose 116 H (60-115) mg/dL Calcium 8.8 D (8.4-10.2) mg/dL Total Bilirubin 0.3 (0.0-1.0) mg/dL AST 16 (5-31) U/L ALT 9 (0-31) U/L Alkaline Phosphatase 66 (39-117) U/L Total Protein 6.5 (6.5-8.0) g/dL Albumin 3.2 L (3.5-5.0) g/dL Beta HCG, Quant 4899 mIU/mL Urine Color Urine Appearance Urine pH (5.0-9.0) Ur Specific [place] (1.005-1.025) Urine Protein (Neg-Trace) mg/dL Urine Glucose (UA) (Negative) mg/dL Urine Ketones (Negative) mg/dL Urine Blood (Negative) Urine Nitrite (Negative) Ur Leukocyte Esterase (Negative) Urine RBC (0-2) /HPF Urine WBC (0-5) /HPF Ur Squamous Epith Cells (0-2) /HPF Urine Bacteria (None Seen) Hyaline Casts (0-2) /LPF COVID-19 ([facility]KOLAS) (Negative) COVID-19 Clin Com Blood Type 07/25/22 07/26/22 07/26/22 Range/Units 23:28 00:27 00:27 WBC (4.8-10.8) X10*3/uL RBC (4.20-5.50) X10*6/uL Hgb (12.0-16.0) g/dl Hct (37.0-47.0) % MCV (80.0-98.0) fL MCH (27.0-33.0) pg MCHC (31.0-35.0) g/dl RDW (11.0-16.0) % Plt Count (160-400) X10*3/uL MPV (9.4-12.3) fL Immature Gran % (Auto) (0.0-0.4) % Neut % (Auto) (45-73) % Lymph % (Auto) (20-40) % [place] % (Auto) (2-11) % Eos % (Auto) (0-4) % Baso % (Auto) (0-2) % Lymph # (Auto) (1.2-4.9) X10*3/uL [place] # (Auto) (0.1-1.2) X10*3/uL Eos # (Auto) (0.0-0.4) X10*3/uL Baso # (Auto) (0.0-0.2) X10*3/uL Abs Immat Gran (auto) (0.00-0.03) X10*3/uL Absolute Neuts (auto) (2.0-8.3) x10*3/uL Absolute Nucleated RBC (0.0-0.012) X10*3/uL Nucleated RBC % (auto) (0.0-0.2) /100WBC Sodium (135-145) mmol/L Potassium (3.3-5.1) mmol/L Chloride (96-108) mmol/L Carbon Dioxide (22-29) mmol/L Anion Gap (12-20) BUN (9-16) mg/dL Creatinine (0.5-1.4) mg/dL Estim Creat Clear Calc Estimated GFR Random Glucose (60-115) mg/dL Calcium (8.4-10.2) mg/dL Total Bilirubin (0.0-1.0) mg/dL AST (5-31) U/L ALT (0-31) U/L Alkaline Phosphatase (39-117) U/L Total Protein (6.5-8.0) g/dL Albumin (3.5-5.0) g/dL Beta HCG, Quant mIU/mL Urine Color Dark Yellow Urine Appearance Cloudy Urine pH 5.5 (5.0-9.0) Ur Specific [place] >= 1.030 H (1.005-1.025) Urine Protein Trace (Neg-Trace) mg/dL Urine Glucose (UA) Negative (Negative) mg/dL Urine Ketones 15 (Negative) mg/dL Urine Blood Moderate (2+) H (Negative) Urine Nitrite Negative (Negative) Ur Leukocyte Esterase Moderate (2+) H (Negative) Urine RBC 11-20 H (0-2) /HPF Urine WBC >50 H (0-5) /HPF Ur Squamous Epith Cells 6-10 (0-2) /HPF Urine Bacteria Trace (None Seen) Hyaline Casts 3-5 (0-2) /LPF COVID-19 (NI[facility]OLAS) Negative (Negative) COVID-19 Clin Com See Note Blood Type B Positive Procedures Perimortem Number of Weeks : 23w 3d Discharge Plan Discharge Clinical Impression: Second trimester , Abdominal pain, Vaginal bleeding in Patient Disposition: Home, Self-Care Instructions: Threatened Miscarriage (ED) Additional Instructions: Your blood counts revealed mild anemia with a hemoglobin and hematocrit of 11 and 32.9. Your blood type is B positive. You had good heart tones at 147 beats per minute. 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 Sometimes bleeding and abdominal pain in can be a sign of a miscarriage for early labor. Your symptoms have resolved however if your symptoms come back you should have someone drive you to [facility] or you can be seen by an OBGYN physician to determine if you are an early liver or having a miscarriage. Follow-up with your doctor in 2 days. Please return to the emergency department if your symptoms get worse or if you develop any symptoms that are concerning to you. Prescriptions: No Action amoxicillin 500 mg capsule 1,000 mg PO BID 10 Days Qty: 40 0RF szxxtxau-nikwxozbn-UD 3.5-10,000-1 mg/mL-unit/mL-% drops,suspension 4 drp otic (ear) left TID 10 Days Qty: 10 0RF bacitracin 500 unit/gram ointment 1 appl topical TID 7 Days Qty: 30 0RF ibuprofen 600 mg tablet 600 mg PO Q6H PRN (Reason: pain) Qty: 20 0RF codeine-guaifenesin 10-100 mg/5 mL liquid 10 ml PO Q6H PRN (Reason: cough) Qty: 237 0RF amoxicillin-pot clavulanate 875-125 mg tablet 1 tab PO BID Qty: 20 0RF
[2022-07-26] LABS: Alanine Aminotransferase 9 U/L (0-31); Albumin Level 3.2 g/dL (3.5-5.0); Alkaline Phosphatase 66 U/L (39-117); Anion Gap 12 (12-20); Aspartate Amino Transferase 16 U/L (5-31); Bilirubin Total 0.3 mg/dL (0.0-1.0); Blood Urea Nitrogen 6 mg/dL (9-16); Calcium 8.8 mg/dL (8.4-10.2); Carbon Dioxide 21 mmol/L (22-29); Chloride 104 mmol/L (96-108); Creatinine Clr Calc Pharmacy 143.2; Estimated Glomerular Filt Rate > 60; Glucose Random 116 mg/dL (60-115); Potassium 3.4 mmol/L (3.3-5.1); Sodium 134 mmol/L (135-145); Total Protein 6.5 g/dL (6.5-8.0)
[2022-07-26 00:06] LABS: HCG Quantitative 4899 mIU/mL
--- NOTE | 2022-07-26 00:14 | PC.NURSE ---
[facility]'s Transfer Line called @ 2354 per gave pt demographics awaiting a call back. At 2357 received a call back asked to speak with Dr. Sanchez they stated they are closed to transfers at this time. Awaiting further instructions at this time.
[2022-07-26 00:36] LABS: Appearance Urine Cloudy; Color Urine Dark Yellow; Glucose Urine UA Negative (Negative); Leukocyte Esterase Urine Moderate (2+) (Negative); Nitrite Urine Negative (Negative); PH 5.5 (5.0-9.0); Specific Gravity - Urine >= 1.030 (1.005-1.025); UMIC TRIGGER UACC YES; Urine Blood Moderate (2+) (Negative); Urine Ketones 15 mg/dL (Negative); Urine Protein Trace mg/dL (Neg-Trace)
--- NOTE | 2022-07-26 00:36 | PC.NURSE ---
[facility] Transfer Line called at 0034 per gave patient demographics,asked to speak with .
[2022-07-26 00:41] LABS: Bacteria Urine Trace (None Seen); UACC Culture Trigger YES; WBC Urine >50 /HPF (0-5)
[2022-07-26 00:46] LABS: COVID-19 Test Negative (Negative); IDNOW Serial# BCCEAD1C
--- NOTE | 2022-07-26 01:41 | PC.NURSE ---
Adelita called at 0044 spoke with ,patient was accepted by Alana Mondragon,to the [facility]. Rosi was called at 0104 for transport bls per spoke with Natalie dotson 30mins.
--- NOTE | 2022-07-26 01:45 | PC.NURSE ---
At 0119 Natalie from [facility] texted this Us/Pct she stated that they did not have the resources to accommodate the long distance transfer,that we would had to fly the patient out. was made aware and spoke with patient and patient refused. [facility] was called and canceled patients transfer per
[2022-07-26 03:12] LABS: CT PCR NOT DETECTED (Not Detect.); NG PCR NOT DETECTED (Not Detect.)
[2022-07-26 11:39] LABS: BV Int Neg Control Negative (Negative); BV Int Pos Control Positive (Positive)
== END 2022-07-26 02:12 | disposition home or self-care (01) ==
PROVIDERS: Emergency Provider Emergency Medicine Emergency Medical Services
DX: O46.92 Antepartum hemorrhage, unspecified, second trimester (principal); O26.892 Other specified pregnancy related conditions, second trimester; R10.9 Unspecified abdominal pain; O98.812 Other maternal infectious and parasitic diseases complicating pregnancy, second trimester; A59.01 Trichomonal vulvovaginitis; Z3A.23 23 weeks gestation of pregnancy; Z20.822 Contact with and (suspected) exposure to COVID-19
CPT/HCPCS: 36415; 80053; 81001; 84702; 85025; 86900; 86901; 87086; 87480; 87491; 87510; 87591; 87635; 87660; 99283; 99285

== ENCOUNTER 2023-12-20 09:02 | Emergency (ER) | payer OTHER, SELFPAY ==
[2023-12-20 09:27] VITALS: BP 142/49; PULSE 71; RESP 16; TEMP 36.8; O2SAT 98; BMI 29.1
[2023-12-20 10:16] LABS: MANUAL DIFF FLAG NO
[2023-12-20 10:17] LABS: Basophils Absolute Auto 0.1 X10*3/uL (0.0-0.2); Basophils Percent Auto 1.1 % (0-2); Eosinophils Absolute Auto 0.1 X10*3/uL (0.0-0.4); Eosinophils Percent Auto 1.2 % (0-4); Hematocrit 38.9 % (37.0-47.0); Hemoglobin 13.2 g/dl (12.0-16.0); Imm Gran Abs Auto 0.02 X10*3/uL (0.00-0.03); Imm Gran Pct Auto 0.3 % (0.0-0.4); Lymphocytes Percent Auto 40.1 % (20-40); Mean Corpuscular HGB Conc 33.9 g/dl (31.0-35.0); Mean Corpuscular Hemoglobin 28.1 pg (27.0-33.0); Mean Corpuscular Volume 82.8 fL (80.0-98.0); Monocytes Absolute Auto 0.5 X10*3/uL (0.1-1.2); Monocytes Percent Auto 6.9 % (2-11); Neutrophils Absolute Auto 3.8 x10*3/uL (2.0-8.3); Neutrophils Percent Auto 50.4 % (45-73); Platelet Count 231 X10*3/uL (160-400); Red Cell Distribution Width 13.2 % (11.0-16.0); White Blood Count 7.5 X10*3/uL (4.8-10.8)
[2023-12-20 10:31] LABS: Alanine Aminotransferase 17 U/L (0-31); Alkaline Phosphatase 86 U/L (39-117); Anion Gap 9 (12-20); Aspartate Amino Transferase 16 U/L (5-31); Bilirubin Total 0.3 mg/dL (0.0-1.0); Blood Urea Nitrogen 12 mg/dL (9-16); Calcium 9.1 mg/dL (8.4-10.2); Carbon Dioxide 28 mmol/L (22-29); Chloride 103 mmol/L (96-108); Creatinine Clr Calc Pharmacy 139.8; Estimated Glomerular Filt Rate > 60; Glucose Random 106 mg/dL (60-115); Potassium 3.8 mmol/L (3.3-5.1); Sodium 136 mmol/L (135-145); Total Protein 7.6 g/dL (6.5-8.0)
--- NOTE | 2023-12-20 10:55 | ED_ITS ---
HPI - General Adult General Chief complaint: General Medical Stated complaint: ring stuck on finger Time Seen by Provider: 12/20/23 10:34 Source: patient Mode of arrival: ambulatory Limitations: no limitations History of Present Illness HPI narrative: ring stuck on her L ring finger tried multiple home remedies since last night cannot get it off wants it cut off. complaint: ring stuck on finger Onset (ago): day(s) (yesterday ) Location: left and upper extremity (ring finger) Radiation: non-radiation Severity: mild Quality: aching Pain Consistency: constant Relieving factors: none Exacerbating factors: movement Associated symptoms: denies other symptoms Treatments prior to arrival: none Related Data Previous Rx's ?Medication ?Instructions ?Recorded amoxicillin 500 mg capsule 1,000 mg (2 x 500 mg) PO BID 10 08/15/21 days #40 caps zzlvslur-rsujctxji-pkfmwhohb 3.5 4 drp otic (ear) left TID 10 days 08/15/21 mg-10,000 unit/mL-1 % ear #10 mL drops,susp bacitracin 500 unit/gram topical 1 appl topical TID 7 days #30 grams 10/07/21 ointment ibuprofen 600 mg tablet 600 mg PO Q6H PRN pain #20 tabs 11/24/21 amoxicillin 875 mg-potassium 1 tab PO BID #20 tabs 03/04/22 clavulanate 125 mg tablet codeine 10 mg-guaifenesin 100 mg/5 10 ml PO Q6H PRN cough #237 mL 03/04/22 mL oral liquid Allergies Allergy/AdvReac Type Severity Reaction Status Date / Time No Known Allergies Allergy Verified 12/20/23 09:30 [No Known Allergies*] Review of Systems 2 Review of Systems: Constitutional : No Fever, No Chills Cardiovascular : No Chest Pain, No SOB Respiratory : No Cough, No Dyspnea Gastrointestinal : No Nausea, No Vomiting, No Diarrhea, No abdominal Pain Genitourinary : No Dysuria, No Hematuria Musculoskeletal : positive joint pain, No Myalgias, No Joint Swelling Skin : No Skin lacerations, No rash Neuro : No Weakness, No Numbness PMFSH Past Medical History Attestation statement: The following information was validated with the patient. Source: old records reviewed Medical History Vaginal bleeding in Social History Social History Alcohol intake: never Patient Tobacco Use Status: Never used Tobacco Physical Exam ED Vital Signs: Vital Signs - 24 hr 12/20/23 09:27 Temperature 98.3 F Pulse Rate 71 Respiratory Rate 16 Blood Pressure 142/49 H Pulse Oximetry 98 Oxygen Delivery Method Room Air BMI result Body Mass Index 29.1 Appearance: Alert. Oriented X3. No acute distress. Eyes: Pupils equal, round and reactive to light. ENT: Pharynx normal. Neck: Normal inspection. Neck supple. CVS: Pulses normal. Respiratory: No respiratory distress. Abdomen: atraumatic Skin: Skin warm and dry. Normal skin color. Extremities: L ring finger swollen ring present cannot remove - wants ring cutter used Neuro: Oriented X 3. No motor deficit. No sensory deficit. Procedures Procedure Narrative Procedure Narrative: ring cut off using ring cutter no issues - NV intact afterwards verbal consent does not care about the ring Medical Decision Making Medical Decision Making MDM Narrative: 23 yo female ring stuck on L ring finger she is R hand dominant she is NV intact - will cut off she does not want ring agrees to allow us to cut it Differential Diagnosis Differential Diagnoses: The differential diagnosis associated with the presentation includes fb stuck - wants it removed does not care about ring Lab Data [facility] Lab Attestation statement: I reviewed the patient's lab results. 12/20/23 10:11 12/20/23 10:11 Labs: Lab Results 12/20/23 Range/Units 10:11 WBC 7.5 (4.8-10.8) X10*3/uL RBC 4.70 (4.20-5.50) X10*6/uL Hgb 13.2 (12.0-16.0) g/dl Hct 38.9 (37.0-47.0) % MCV 82.8 (80.0-98.0) fL MCH 28.1 (27.0-33.0) pg MCHC 33.9 (31.0-35.0) g/dl RDW 13.2 (11.0-16.0) % Plt Count 231 (160-400) X10*3/uL MPV 11.0 (9.4-12.3) fL Immature Gran % (Auto) 0.3 (0.0-0.4) % Neut % (Auto) 50.4 (45-73) % Lymph % (Auto) 40.1 H (20-40) % [place] % (Auto) 6.9 (2-11) % Eos % (Auto) 1.2 (0-4) % Baso % (Auto) 1.1 (0-2) % Lymph # (Auto) 3.0 (1.2-4.9) X10*3/uL [place] # (Auto) 0.5 (0.1-1.2) X10*3/uL Eos # (Auto) 0.1 (0.0-0.4) X10*3/uL Baso # (Auto) 0.1 (0.0-0.2) X10*3/uL Abs Immat Gran (auto) 0.02 (0.00-0.03) X10*3/uL Absolute Neuts (auto) 3.8 (2.0-8.3) x10*3/uL Absolute Nucleated RBC 0.000 (0.0-0.012) X10*3/uL Nucleated RBC % (auto) 0.0 (0.0-0.2) /100WBC Sodium 136 (135-145) mmol/L Potassium 3.8 (3.3-5.1) mmol/L Chloride 103 (96-108) mmol/L Carbon Dioxide 28 (22-29) mmol/L Anion Gap 9 L (12-20) BUN 12 (9-16) mg/dL Creatinine 0.64 (0.5-1.4) mg/dL Estim Creat Clear Calc 139.8 Estimated GFR > 60 Random Glucose 106 (60-115) mg/dL Calcium 9.1 (8.4-10.2) mg/dL Total Bilirubin 0.3 (0.0-1.0) mg/dL AST 16 (5-31) U/L ALT 17 (0-31) U/L Alkaline Phosphatase 86 (39-117) U/L Total Protein 7.6 (6.5-8.0) g/dL Albumin 4.0 (3.5-5.0) g/dL Discharge Plan Discharge Instructions: Soft Tissue Foreign Body (ED) Additional Instructions: return for worsening swelling, redness, numbness, weakness Prescriptions: No Action amoxicillin 500 mg capsule 1,000 mg PO BID 10 Days Qty: 40 0RF azukzvum-tqrlwiwlw-[place] 3.5-10,000-1 mg/mL-unit/mL-% drops,suspension 4 drp otic (ear) left TID 10 Days Qty: 10 0RF bacitracin 500 unit/gram ointment 1 appl topical TID 7 Days Qty: 30 0RF ibuprofen 600 mg tablet 600 mg PO Q6H PRN (Reason: pain) Qty: 20 0RF codeine-guaifenesin 10-100 mg/5 mL liquid 10 ml PO Q6H PRN (Reason: cough) Qty: 237 0RF amoxicillin-pot clavulanate 875-125 mg tablet 1 tab PO BID Qty: 20 0RF Print Language: Urdu
--- OUTSIDE RECORDS SUMMARY | 2023-12-20 10:58 | XMS_ITS | Continuity of Care Document ---
Author Organization [facility] ter Address [address] [place] [id number]- Care Team Providers Care Political Reporter Name Role Phone Jigna Cleveland MD Primary Care Physician Encounter [facility] Date(s): 07/07/20 - 07/07/[address] [address]- Encounter Diagnosis Active labor(Final) - 07/07/20 Discharge Disposition: Transferred to an intermediate care faci Attending Physician: Howie Soto MD Admitting Physician: Howie Soto MD Referring Physician: Not on Staff, Referring MD Allergies, Adverse Reactions, Alerts Substance Reaction Severity Status NKA Active Immunizations Given and Recorded Vaccine Date Status Refusal Reason influenza virus vaccine, inactivated 06/06/20 Give n tetanus/diphtheria/pertussis, acel(Tdap) 04/12/20 Given Medications azithromycin 500 mg oral tablet 2 tablet = 1,000 mg, By Mouth, Once, # 2 tablet, 0 Refills, Soft Stop, 03/29/20 13:26:00 EDT, Tablet, [id number], 152.5, cm, 03/22/20 9:06:00 EDT, Height, 68.2, kg, 02/06/20 23:59:00 EDT, DryWeight Start Date: 03/29/20 Status: Ordered azithromycin 500 mg oral tablet 2 tablet = 1,000 mg, By Mouth, Once, # 2 tablet, 0 Refills, Soft Stop, 04/12/20 14:12:00 EDT, Tablet, [id number], 152.5, cm, 04/12/20 13:34:00 EDT, Height, 68.2, kg, 02/06/20 23:59:00 EDT, Dry Weight Start Date: 04/12/20 Status: Ordered Diflucan 150 mg oral tablet 1 tablet = 150 mg, By Mouth, Once, # 1 tablet, 0 Refills, Soft Stop, 07/01/20 10:22:00 EST, Tablet,[id number], 152.5, cm, 07/01/20 9:43:00 EST, Height, 68.2, kg, 02/06/20 23:59:00 EDT, Dry Weight Start Date: 07/01/20 Status: Ordered ferrous sulfate 325 mg oral enteric coated tablet 325 mg, 1, tablet, By Mouth, 2 times a day, # 60 tablet, Refills 1, Tot. Refills 1, Maintenance, 06/13/20 8:17:00 EDT, Route to Pharmacy Electronically, [id number], 152.5, cm, 06/12/20 10:14:00 EDT, Height, 68.2, kg, 02/06/20 23:59:00 EDT, Dry... Start Date: 06/13/20 Stop Date: 08/12/20 Status: Ordered Multivitamins with Folic Acid 1 mg oral capsule 1 capsule, By Mouth, Daily, # 100 capsule, 2 Refills, Maintenance, 02/07/20 1:53:00 EDT, Capsule, [facility]/pharmacy #[id number], 1 capsule By Mouth Daily, 68.2, kg, 02/06/20 23:59:00 EDT, Dry Weight Start Date: 02/07/20 Status: Ordered Tylenol Extra Strength By Mouth, Every 6 hours, 0 Refills, Maintenance, 02/07/20 0:08:00 EDT Start Date: 02/07/20 Status: Ordered Problem List Condition Effective Dates Status Health Status Inform ant ADHD - Attention deficit dis order with hyperactivity(Confirmed) 1 Active Anemia affecting , antepartum(Confirmed) Active Sleep disorder(Confirmed) Active Vocalization(Confirmed) Active 1last treated around age 13 Vital Signs Most recent to oldest [Reference Range]: 1 Oxygen Saturation [94-100 %] 99 % (07/07/20 3:56 AM) Pulse Rate [55-90 bpm] 101 bpm *H* (07/07/20 3:56 AM) Blood Pressure [90-138/55-84 mm Hg] 126/ 84mm Hg (07/07/20 3:56 AM) Respiratory Rate [16-30 br/min] 16 br/mi n (07/07/20 3:56 AM) Temperature [96.8-100.4 DegF] 98.3 DegF (07/07/20 3:56 AM) Mode of Delivery (Oxygen) Room air (07/07/20 3:56 AM) Temperature Route Oral (07/07/20 3:56 AM) Social History Social History Type Response Smoking Status Never (less than 100 in lifetime) entered on: 02/07/20 Sex
--- OUTSIDE RECORDS SUMMARY | 2023-12-20 10:58 | XMS_ITS | Continuity of Care Document ---
Author Organization [facility] Address [address] [place] [address]- Care Team Providers Care Pony Worker Name Role Phone Sean Sparrow MD Primary Care Physician [place] [facility] [place] - 06/27/[address] [address] Attending Physician: Not on Staff, Attending MD Allergies, Adverse Reactions, Alerts No Known Allergies Immunizations Given and Recorded Vaccine Date Status Refusal Reason SARS-CoV-2 mRNA (msqczbw-hreu-mabrj) vax 04/30/22 Given influenza virus vaccine, inactivated 06/06/20 Give n tetanus/diphtheria/pertussis, acel(Tdap) 04/12/20 Given Medications ondansetron 4 mg oral tablet 1 tablet = 4 mg, By Mouth, Every 6 hours, PRN Nausea & Vomiting, # 20 tablet, 1 Refills, Acute 07/27/22 9:12:00 EST, 06/25/22 9:11:00 EDT, Tablet, [id number], Partial fill upon patient request if the prescription is for a schedule II opioid drRiri. Start Date: 06/25/22 Stop Date: 07/27/22 Status: Ordered Multivitamins with Folic Acid 1 mg oral tablet 1 tablet, By Mouth, Daily, # 90 tablet, 2 Refills, Maintenance, 04/13/22 18:43:00 EDT, Tablet, [id number], Partial fill upon patient request if the prescription is for a schedule II opioid drug., 1 tablet By Mouth Daily, 164, cm, 10/31/21 12:2... Start Date: 04/13/22 Status: Ordered Multivitamins with Folic Acid 1.4 mg oral tablet, chewable 1 tablet, Chew, Daily, # 90 tablet, 2 Refills, Maintenance, 06/08/22 18:36:00 EDT, Chew Tablet, [facility]/pharmacy #[id number], Partial fill upon patient request if the prescription is for a schedule II opioid drug., 1 tablet Chew Daily, 164jose, 04/30/22 14:48:0... Start Date: 06/08/22 Status: Ordered Unisom 25 mg oral tablet See Instructions, take 1 tablet by mouth at bedtime, # 60 tablet, 3 Refills, Maintenance, 06/08/22 18:30:00 EDT, [id number], Partial fill upon patient request if the prescription is for a schedule II opioid drug., 164, jose, 04/30/22 14:48:00 ED... Start Date: 06/08/22 Status: Ordered Vitamin B6 25 mg oral tablet See Instructions, 1 tablet By Mouth 3 times Daily, # 90 tablet, 3 Refills, Maintenance, 06/08/22 18:30:00 EDT, [facility]/pharmacy #[id number], Partial fill upon patient request if the prescription is for a schedule II opioid drug., 164, jose, 04/30/22 14:48:00 EDT,... Start Date: 06/08/22 Status: Ordered Problem List Condition Confirmation Course Effective Dates Status H ealth Status Informant ADHD - Attention deficit disorder with hyperactivity 1 Confirmed Active History of section Confirmed Active Sleep disorder Confirmed Active Vocalization Confirmed Active Nausea and vomiting during prior to 22 weeks gestation Confirmed Active 1last treated around age 13 Social History Social History Type Response Smoking Status Never (less than 100 in lifetime) entered on: 02/07/20 Sex Patient Care team information Personnel Name: Sean Sparrow MD Address: Address: [address] [place] [address] [place] [address]-
--- OUTSIDE RECORDS SUMMARY | 2023-12-20 10:58 | XMS_ITS | Continuity of Care Document ---
Author Organization [facility] Address [address] [address]- Care Team Providers Care Special Events Director Name Role Phone Sean Sparrow MD Primary Care Phys[id number] Date[facility]04[facility] - 06/03/22 [facility] [address] [address] Allergies, Adverse Reactions, Alerts No Known Allergies Immunizations Given and Recorded Vaccine Date Status Refusal Reason SARS-CoV-2 mRNA (vcjzssb-poiu-juobi) vax 04/30/22 Given influenza virus vaccine, inactivated 06/06/20 Give n tetanus/diphtheria/pertussis, acel(Tdap) 04/12/20 Given Medications Multivitamins with Folic Acid 1 mg oral tablet 1 tablet, By Mouth, Daily, # 90 tablet, 2 Refills, Maintenance, 04/13/22 18:43:00 EDT, Tablet, [id number], Partial fill upon patient request if the prescription is for a schedule II opioid drug., 1 tablet By Mouth Daily, jose Hess, 10/31/21 12:2... Start Date: 04/13/22 Status: Ordered Unisom 25 mg oral tablet See Instructions, take 1 tablet by mouth at bedtime, # 60 tablet, 1 Refills, Maintenance, 04/30/22 15:01:00 EDT, [id number], Partial fill upon patient request if the prescription is for a schedule II opioid drug., 164 cm, 04/30/22 14:48:00 ED... Start Date: 04/30/22 Status: Ordered Vitamin B6 25 mg oral tablet See Instructions, 1 tablet By Mouth 3 times Daily, # 90 tablet, 1 Refills, Maintenance, 04/30/22 15:02:00 EDT, [id number], Partial fill upon patient request if the prescription is for a schedule II opioid drug., 164, cm, 04/30/22 14:48:00 EDT,... Start Date: 04/30/22 Status: Ordered Problem List Condition Confirmation Course Effective Dates Status H ealth Status Informant ADHD - Attention deficit disorder with hyperactivity 1 Confirmed Active Sleep disorder Confirmed Active Vocalization Confirmed Active 1last treated around age 13 Social History Social History Type Response Smoking Status Never (less than 100 in lifetime) entered on: 02/07/20 Sex Patient Care team information Personnel Name: Sean Sparrow MD Address: Address: [address] [facility] [place] [address]
--- OUTSIDE RECORDS SUMMARY | 2023-12-20 10:58 | XMS_ITS | Continuity of Care Document ---
Author Organization [facility] Address [address] [place] [address]- Care Team Providers Care Shuttleless Loom Weaver Name Role Phone Rizwan MEIER, Mendy Zee Primary Care Physician Encounter [facility] Date(s): 11/23/19 - 12/03/[address] [address]- [facility] Attending Physician: Andrea Infante Admitting Physician: Andrea Infante Referring Physician: AdmtrAndrea Allergies, Adverse Reactions, Alerts Substance Reaction Severity Status NKA Active Problem List Condition Effective Dates Status Health Status Inform ant ADHD - Attention deficit dis order with hyperactivity(Confirmed) Active Sleep disorder(Confirmed) Active Vocalization(Confirmed) Active
--- OUTSIDE RECORDS SUMMARY | 2023-12-20 10:59 | XMS_ITS | Continuity of Care Document ---
Author Organization [facility] Address [address] [place] [address]- Care Team Providers Care Certified Genetic Counselor Name Role Phone Mendy Astorga MD Primary Care Physician Encounter [facility] [place] Date(s): 04/12/20 - 05/26/[address] [address]- [facility] Attending Physician: Not on Staff, Attending MD Referring Physician: Mendy Astorga MD Allergies, Adverse Reactions, Alerts Substance Reaction Severity Status NKA Active Immunizations Given and Recorded Vaccine Date Status Refusal Reason tetanus/diphtheria/pertussis, acel(Tdap) 04/12/20 Given Medications azithromycin 500 [...] Dry Weight Start Date: 04/12/20 Status: Ordered Multivitamins with Folic Acid 1 mg oral capsule 1 capsule, By Mouth, Daily, # 100 capsule, 2 Refills, Maintenance, 02/07/20 1:53:00 EDT, Capsule, [id number], 1 capsule By Mouth Daily, 68.2, kg, 02/06/20 23:59:00 EDT, Dry Weight Start Date: 02/07/20 Status: Ordered Tylenol Extra Strength By Mouth, Every 6 hours, 0 Refills, Maintenance, 02/07/20 0:08:00 EDT Start Date: 02/07/20 Status: Ordered Problem List Condition Effective Dates Status Health Status Inform ant ADHD - Attention deficit dis order with hyperactivity(Confirmed) 1 Active Sleep disorder(Confirmed) Active Vocalization(Confirmed) Active 1last treated around age 13 Social History Social History Type Response Smoking Status Never (less than 100 in lifetime) entered on: 02/07/20 Sex
--- OUTSIDE RECORDS SUMMARY | 2023-12-20 10:59 | XMS_ITS | Continuity of Care Document ---
Author Organization [facility] Address [address] [place] [address]- Care Team Providers Care Camp Tender Name Role Phone Sean Sparrow MD Primary Care Physician [place] [facility] [place](s[place] 08/12/22 - 09/11/[address] [address] Allergies, Adverse Reactions, Alerts No Known Allergies Immunizations Given and Recorded Vaccine Date Status Refusal Reason tetanus/diphtheria/pertussis, acel(Tdap) 09/07/22 Given tetanus/diphtheria/pertussis, acel(Tdap) 04/12/20 Given SARS-CoV-2 mRNA (qnxtovw-eyjq-zapng) vax 04/30/22 Given influenza virus vaccine, inactivated 06/06/20 Give n Medications metroNIDAZOLE 500 mg oral tablet 1 tablet = 500 mg, By Mouth, Every 12 hours, for 7 days, # 14 tablet, 0 Refills, Acute 09/14/22 15:56:00 EST, 09/07/22 15:56:00 EST, Tablet, [id number], Partial fill upon patient request if the prescription is for a schedule II opioid drug., 1... Start Date: 09/07/22 Stop Date: 09/14/22 Status: Ordered Multivitamins with Folic Acid 1 [...] Refills, Maintenance, 06/08/22 18:36:00 EDT, Chew Tablet, [id number], Partial fill upon patient request if the prescription is for a schedule II opioid drug., 1 tablet Chew Daily, 164, jose, 04/30/22 14:48:0... Start Date: 06/08/22 Status: Ordered [...] Confirmed Active History of section Confirmed Active Vocalization Confirmed Active 1last treated around age 13 Social History Social History Type Response Smoking Status Never (less than 100 in lifetime) entered on: 02/07/20 Sex Patient Care team information Care Team Personnel Name: Sean Sparrow MD Position: [facility] Outreach Member Role: PCP Address: Address: [address] [place] [address] Sean Sparrow MD [place], [place] - Care Team Related Persons Name: LINDSAY OROZCO Address: Address: home [address] [place] [address] [place] Name: CHASIDY CHIN Address: home [address] [place] [address] Name: ANDREW AHMADI Address: home [address] [place], [place]
--- OUTSIDE RECORDS SUMMARY | 2023-12-20 10:59 | XMS_ITS | Continuity of Care Document ---
Author Organization [facility] Address [address] [place] [address]- Care Team Providers Care Stud Beef Cattle Farmer Name Role Phone Sean Sparrow MD Primary Care Physician [phone] Encounter [facility] [place] Date(s): 11/30/22 - 01/24/23 [facility] [address] [address]- Attending Physician: Not on Staff, Attending MD Allergies, Adverse Reactions, Alerts No Known Allergies Immunizations Given and Recorded Vaccine Date Status Refusal Reason tetanus/diphtheria/pertussis, acel(Tdap) 09/07/22 Given tetanus/diphtheria/pertussis, acel(Tdap) 04/12/20 Given SARS-CoV-2 mRNA (lkvsdqz-adlu-nrrbp) vax 04/30/22 Given influenza virus vaccine, inactivated 06/06/20 Give n Medications acetaminophen 325 mg oral tablet 975 mg, 3, tablet, By Mouth, Every 8 hours, PRN, # 60 tablet, Refills 0, Tot. Refills 0, Maintenance, Pain , Moderate, 12/01/22 9:22:00 EDT, Route to Pharmacy Electronically, [facility]/pharmacy #[id number], Partial fill upon patient request if the prescription is... Start Date: 12/01/22 Status: Ordered ibuprofen 800 mg oral tablet 800 mg, 1, tablet, By Mouth, Every 8 hours, (4-6), may give 400mg per patient preference and re-dose with 400mg within 8 hours, if needed. Patient should only receive a total of 800mg of Ibuprofen every 8 hours., # 40 tablet, Refills 0, Tot. Refills... Start Date: 12/01/22 Status: Ordered Problem List Condition Confirmation Course Effective Dates Status H ealth Status Informant ADHD - Attention deficit disorder with hyperactivity 1 Confirmed Active History of section Confirmed Active 1last treated around age 13 Social History Social History Type Response Smoking Status Never (less than 100 in lifetime) entered on: 02/07/20 Sex Patient Care team information Care Team Personnel Name: Sean Sparrow MD Position: [facility] Outreach Member Role: PCP Address: Address: [address] [place] [address] [place] [address]- Care Team Related Persons Name: LINDSAY OROZCO Address: [address] Address: home [address] [place] [address] [place] Name: CHASIDY CHIN Address: [address] [place] [address] Name: WESLY TURPIN Address: [address] Address: home [address] [place] [address] Name: ANDREW AHMADI Address: home [address] [place] [address]
--- OUTSIDE RECORDS SUMMARY | 2023-12-20 10:59 | XMS_ITS | Continuity of Care Document ---
Author Organization [facility] Address [address] [place] [address]- Care Team Providers Care Quality Control Engineering Technician Name Role Phone Rizwan MEIER, Mendy Zee Primary Care Physician Encounter [facility] Date(s): 03/19/20 - 04/18/[facility] [address] [place] [address]- [facility] Attending Physician: AdmAndrea dowell Admitting Physician: Admtr, Andrea Referring Physician: Admtr, Ar8 Allergies, Adverse Reactions, Alerts Substance Reaction Severity [...] Dry Weight Start Date: 04/12/20 Status: Ordered metroNIDAZOLE 500 mg oral tablet 1 tablet = 500 mg, By Mouth, Every 12 hours, for 7 days, # 14 tablet, 0 Refills, Acute 04/19/20 14:10:00 EDT, 04/12/20 14:10:00 EDT, Tablet, [id number], 152.5, cm, 04/12/20 13:34:00 EDT, Height, 68.2, kg, 02/06/20 23:59:00 EDT, Dry Weight Start Date: 04/12/20 Stop Date: 04/19/20 Status: Ordered Multivitamins with Folic Acid 1 [...]
--- OUTSIDE RECORDS SUMMARY | 2023-12-20 10:59 | XMS_ITS | Continuity of Care Document ---
Author Organization [facility] Address [address] [place] [address]- Care Team Providers Care Mechanical Ordnance Assembler Name Role Phone Not on Staff, PCP Primary Care Physician Unavail able Encounter [facility] [place] Date(s): 10/31/21 - 10/31/[address] [address]- Discharge Disposition: A-D/C Home Attending Physician: Smith Ricks MD Admitting Physician: Smith Ricks MD Referring Physician: Not on Staff, Referring MD Allergies, Adverse Reactions, Alerts No Known Allergies Immunizations Given and Recorded Vaccine Date Status Refusal Reason influenza virus vaccine, inactivated 06/06/20 Give n tetanus/diphtheria/pertussis, acel(Tdap) 04/12/20 Given Problem List Condition Effective Dates Status Health Status Inform ant ADHD - Attention deficit dis order with hyperactivity(Confirmed) 1 Active Sleep disorder(Confirmed) Active Vocalization(Confirmed) Active 1last treated around age 13 Vital Signs Most recent to oldest [Reference Range]: 1 2 3 Height 164 cm (10/31/21 12:25 PM) 164 cm (10/31/21 10:50 AM) Weight 79 kg (10/31/21 12:25 PM) 79 kg (10/31/21 10:50 AM) Oxygen Saturation [94-100 %] 100 % (10/31/21 12:25 PM) 100 % (10/31/21 10:50 AM) 100 % (10/31/21 10:45 AM) Pulse Rate [55-90 bpm] 73 bpm (10/31/21 12:25 PM) 75 bpm (10/31/21 10:50 AM) 82 bpm (10/31/21 10:45 AM) Body Mass Index [18.5-24.99] 29.37 *H* (10/31/21 12:25 PM) 29.37 *H* (10/31/21 10:50 AM) Blood Pressure [90-138/55-84 mm Hg] 118/63mm Hg (10/31/21 12:25 PM) 119/70mm Hg (10/31/21 10:50 AM) Respiratory Rate [16-30 br/min] 20 br/min (10/31/21 12:25 PM) 20 br/min (10/31/21 10:50 AM) Temperature [96.8-100.4 DegF] 97.8 DegF (10/31/21 12:25 PM) 97.6 DegF (10/31/21 10:50 AM) Mode of Delivery (Oxygen) Room air (10/31/21 12:25 PM) Room air (10/31/21 10:50 AM) Room air (10/31/21 10:45 AM) Blood pressure sites Arm, left (10/31/21 12:25 PM) Arm, right (10/31/21 10:50 AM) Temperature Route Oral (10/31/21 12:25 PM) Oral (10/31/21 10:50 AM) Weight Obtained Via Standing scale (10/31/21 10:50 AM) Social History Social History Type Response Smoking Status Never (less than 100 in lifetime) entered on: 02/07/20 Sex
--- OUTSIDE RECORDS SUMMARY | 2023-12-20 10:59 | XMS_ITS | Continuity of Care Document ---
Author Organization [facility] Address [address] [place] [address]- Care Team Providers Care Chief Transfer And Pumphouse Operator Name Role Phone Megha MEIER, Jigna Primary Care Physician [place] [facility] [place] 06/09/20 - 07/09/20 [facility] [address] [place], [place] [address] Allergies, Adverse Reactions, Alerts Substance Reaction Severity [...] 0 Refills, Soft Stop, 07/01/20 10:22:00 EST, [facility]t,[id number], 152.5, cm, 07/01/20 9:43:00 EST, Height, 68.2, kg, 02/06/20 23:59:00 EDT, Dry Weight Start Date: 07/01/20 Status: Ordered ferrous sulfate 325 mg oral enteric coated tablet 325 mg, 1, tablet, By Mouth, 2 times a day, # 60 tablet, Refills 1, Tot. Refills 1, Maintenance, 06/13/20 8:17:00 EDT, Route to Pharmacy Electronically, [facility]/pharmacy #[id number], 152.5, cm, 06/12/20 10:14:00 EDT, Height, 68.2, kg, 02/06/20 23:59:00 EDT, Dry... Start Date: 06/13/20 Stop Date: 08/12/20 Status: Ordered Multivitamins with Folic Acid 1 mg oral capsule 1 capsule, By Mouth, Daily, # 100 capsule, 2 Refills, Maintenance, 02/07/20 1:53:00 EDT, Capsule, [facility]/pharmacy #[id number], 1 capsule By Mouth Daily, 68.2, [...]
--- OUTSIDE RECORDS SUMMARY | 2023-12-20 10:59 | XMS_ITS | Continuity of Care Document ---
Author Organization [facility] Address [address] [place] [address]- Care Team Providers Care Production Control Coordinating Clerk Name Role Phone Sean Sparrow MD Primary Care Physician [phone] Encounter [facility] [place] Date(s): 04/08/21 - 05/08/[address] [address]- Attending Physician: Andrea Infante Admitting Physician: Andrea [...]
--- OUTSIDE RECORDS SUMMARY | 2023-12-20 10:59 | XMS_ITS | Continuity of Care Document ---
Author Organization [facility] Address [address] [place] [address]- Care Team Providers Care Drop Worker Name Role Phone Rizwan MEIER, Mendy Zee Primary Care Physician ( [phone] [place] [facility] [place] - 06/22/[address] [address] [facility] Allergies, Adverse Reactions, Alerts Substance Reaction Severity [...] Dry Weight Start Date: 04/12/20 Status: Ordered ferrous sulfate 325 mg oral enteric coated tablet 325 mg, 1, tablet, By Mouth, 2 times a day, # 60 tablet, Refills 1, Tot. Refills 1, Maintenance, 06/13/20 8:17:00 EDT, Route to Pharmacy Electronically, [facility]/pharmacy #[id number], 152.5, cm, 06/12/20 10:14:00 EDT, Height, 68.2, kg, 02/06/20 23:59:00 EDT, Dry... Start Date: 06/13/20 Stop Date: 08/12/20 Status: Ordered Multivitamins with Folic Acid 1 mg oral capsule 1 capsule, By Mouth, Daily, # 100 capsule, 2 Refills, Maintenance, 02/07/20 1:53:00 EDT, Capsule, [facility]/pharmacy #[id number], 1 capsule By Mouth Daily, 68.2, [...]
--- OUTSIDE RECORDS SUMMARY | 2023-12-20 10:59 | XMS_ITS | Continuity of Care Document ---
Author Organization [facility] Address [address] [place] [address]- Care Team Providers Care Human Capital Consultant Name Role Phone Sean Sparrow MD Primary Care Physician [place] [facility] [place] - 11/29/[address] [address] Attending Physician: Not on Staff, Attending MD Allergies, Adverse Reactions, Alerts No Known Allergies Immunizations Given and Recorded Vaccine Date Status Refusal Reason tetanus/diphtheria/pertussis, acel(Tdap) 09/07/22 Given tetanus/diphtheria/pertussis, acel(Tdap) 04/12/20 Given SARS-CoV-2 mRNA ([id number]-jbxy-hrzae) vax 04/30/22 Given influenza virus vaccine, inactivated 06/06/20 Give n Medications ferrous sulfate 325 mg oral enteric coated tablet 325 mg, 1, tablet, By Mouth, Daily, # 30 tablet, Refills 6, Tot. Refills 6, Maintenance, 09/18/22 17:54:00 EST, Route to Pharmacy Electronically, [facility]/pharmacy #[id number], Partial fill upon patient requestif the prescription is for a schedule II opioid padma... Start Date: 09/18/22 Status: Ordered Multivitamins with Folic Acid 1.4 mg oral tablet, chewable 1 tablet, Chew, Daily, # 90 tablet, 2 Refills, Maintenance, 06/08/22 18:36:00 EDT, Chew Tablet, [facility]/pharmacy #[id number], Partial fill upon patient request if the prescription is for a schedule II opioid drug., 1 tablet Chew Daily, 164, cm, 04/30/22 14:48:0... Start Date: 06/08/22 Status: Ordered Problem List Condition Confirmation Course Effective Dates Status H ealt Status Informant ADHD - Attention deficit disorder with hyperactivity 1 Confirmed Active History of section Confirmed Active Obese class I Confirmed Active 1last treated around age 13 Social History Social History Type Response Smoking Status Never (less than 100 in lifetime) entered on: 02/07/20 Sex Patient Care team information Care Team Personnel Name: Sean Sparrow MD Position: S Outreach Member Role: PCP Address: Address: [address] [place] [address] Drive [place] [address]- Care Team Related Persons Name: LINDSAY OROZCO Address: [address] Address: home [address] [place] [address] Name: ERNESTOMARLENA Address: [address] Address: home [address] [place] [address] Name: CHASIDY CHIN Address: [address] [place] [address] Name: ANDREW AHMADI Address: [address] [place] [address]
--- OUTSIDE RECORDS SUMMARY | 2023-12-20 10:59 | XMS_ITS | Continuity of Care Document ---
Author Organization [facility] Address [address] [place] [address]- Care Team Providers Care Dip Tube Assembler Machine Name Role Phone Megha MEIER, Jigna Primary Care Physician [phone] Encounter [facility] [place] Date(s): 10/14/20 - 11/13/[address] [address]- Attending Physician: Andrea Infante Admitting Physician: Andrea [...]
--- OUTSIDE RECORDS SUMMARY | 2023-12-20 10:59 | XMS_ITS | Continuity of Care Document ---
Author Organization [facility] Address [address] [place] [address]- Care Team Providers Care Human Capital Analyst Name Role Phone Sean Sparrow MD Primary Care Physician Encounter [facility] [place] Date(s): 10/23/22 - 12/20/[address] [address] Attending Physician: Not on Staff, Attending MD Allergies, Adverse Reactions, Alerts No Known Allergies Immunizations Given and Recorded Vaccine Date Status Refusal Reason tetanus/diphtheria/pertussis, acel(Tdap) 09/07/22 Given tetanus/diphtheria/pertussis, acel(Tdap) 04/12/20 Given SARS-CoV-2 mRNA ([id number]-fjvd-rnqgo) vax 04/30/22 Given influenza virus vaccine, inactivated 06/06/20 Give n Medications acetaminophen 325 mg oral tablet 975 mg, 3, tablet, By Mouth, Every 8 hours, PRN, # 60 tablet, Refills 0, Tot. Refills 0, Maintenance, Pain , Moderate, 12/01/22 9:22:00 EDT, Route to Pharmacy Electronically, [facility]/pharmacy #[id number], Partial fill upon patient request if the prescription is... Start Date: 12/01/22 Status: Ordered ferrous sulfate 325 mg oral enteric coated tablet 325 mg, 1, tablet, By Mouth, Daily, # 30 tablet, Refills 6, Tot. Refills 6, Maintenance, 09/18/22 17:54:00 EST, Route to Pharmacy Electronically, [facility]/pharmacy #[id number], Partial fill upon patient requestif the prescription is for a schedule II opioid padma... Start Date: 09/18/22 Status: Ordered ibuprofen 800 mg oral tablet 800 mg, 1, tablet, By Mouth, Every 8 hours, (4-6), may give 400mg per patient preference and re-dose with 400mg within 8 hours, if needed. Patient should only receive a total of 800mg of Ibuprofen every 8 hours., # 40 tablet, Refills 0, Tot. Refills... Start Date: 12/01/22 Status: Ordered MiraLax oral powder for reconstitution = 17 Gm, By Mouth, Daily, dissolve in water before taking, # 255 Gm, 1 Refills, Maintenance, 12/01/22 9:22:00 EDT, REC Powder, [facility]/pharmacy #[id number], Partial fill upon patient request if the prescription is for a schedule II opioid drug., 17 Gm By Mouth... Start Date: 12/01/22 Status: Ordered oxyCODONE 5 mg oral tablet 5 mg, 1, tablet, By Mouth, Every 3 hours, PRN, (7-10), # 10 tablet, Refills 0, Tot. Refills 0, Maintenance, Pain , Severe, 12/01/22 9:22:00 EDT, Route to Pharmacy Electronically, [facility]/pharmacy #[id number], Partial fill upon patient request if the prescriptio... Start Date: 12/01/22 Status: Ordered Multivitamins with Folic Acid 1.4 mg oral tablet, chewable 1 tablet, Chew, Daily, # 90 tablet, 2 Refills, Maintenance, 06/08/22 18:36:00 EDT, Chew Tablet, [facility]/pharmacy #[id number], Partial fill upon patient request if the prescription is for a schedule II opioid drug., 1 tablet Chew Daily, 164, cm, 04/30/22 14:48:0... Start Date: 06/08/22 Status: Ordered senna - oral tablet 2 tablet, By Mouth, Daily at bedtime, PRN for constipation, # 120 tablet, 0 Refills, Maintenance, 12/01/22 9:22:00 EDT, Tablet, [facility]/pharmacy #[id number], Partial fill upon patient request if the prescription is for a schedule II opioid drug., 165, cm, 12/01... Start Date: 12/01/22 Status: Ordered simethicone 80 mg oral tablet, chewable 80 mg, Chew, 3 times a day, PRN, # 60 tablet, Refills 0, Tot. Refills 0, Maintenance, Gas, 239:22:00 EDT, Route to Pharmacy Electronically, [facility]/pharmacy #[id number], Partial fill upon patient request if the prescription is for a schedule II opioid . Start Date: 12/01/22 Status: Ordered Problem List [...] Team Personnel Name: Sean Sparrow MD Position: [facility] Outreach Member Role: PCP Address: Address: [address] [place] [address] [place] [address]- Care Team Related Persons Name: LINDSAY OROZCO Address: [address] Address: [address] [place] [address] [place] Name: CHASIDY CHIN Address: home [address] [place] [address] Name: WESLY TURPIN Address: [address] Address: home [address] [place] [address] [place] Name: ANDREW AHMADI Address: home [address] [place] [address]
--- OUTSIDE RECORDS SUMMARY | 2023-12-20 10:59 | XMS_ITS | Continuity of Care Document ---
Author Organization [facility] Address [address] [place] [address]- Care Team Providers Care Chute Greaser Name Role Phone Sean Sparrow MD Primary Care Physician [phone] Encounter [facility] [place] Date(s): 08/21/22 - 09/20/[address] [address] Allergies, Adverse Reactions, Alerts No Known Allergies Immunizations Given and Recorded Vaccine Date Status Refusal Reason tetanus/diphtheria/pertussis, acel(Tdap) 09/07/22 Given tetanus/diphtheria/pertussis, acel(Tdap) 04/12/20 Given SARS-CoV-2 mRNA (rrqnxpg-ruti-qjasi) vax 04/30/22 Given influenza virus vaccine, inactivated 06/06/20 Give n Medications ferrous sulfate 325 mg oral enteric coated tablet 325 mg, 1, tablet, By Mouth, Daily, # 30 tablet, Refills 6, Tot. Refills 6, Maintenance, 09/18/22 17:54:00 EST, Route to Pharmacy Electronically, [facility]/pharmacy #[id number], Partial fill upon patient requestif the prescription is for a schedule II opioid pdama... Start Date: 09/18/22 Status: Ordered Multivitamins with Folic Acid 1 mg oral tablet 1 tablet, By Mouth, Daily, # 90 tablet, 2 Refills, Maintenance, 04/13/22 18:43:00 EDT, Tablet, [facility]/pharmacy #[id number], Partial fill upon patient [...] II opioid drug., 164, cm, 04/30/22 14:48:00 ED... Start Date: 06/08/22 Status: Ordered Vitamin B6 25 mg oral tablet See Instructions, 1 tablet By Mouth 3 times Daily, # 90 tablet, 3 Refills, Maintenance, 06/08/22 18:30:00 EDT, [id number], Partial fill upon patient request if the prescription is for a schedule II opioid drug., 164, cm, 04/30/22 14:48:00 EDT,... Start Date: 06/08/22 Status: [...] Team Personnel Name: Sean Sparrow MD Position: [facility] Outreach Member Role: PCP Address: Address: [address] [place] [address] Sean Sparrow MD [place], [place] - Care Team Related Persons Name: LINDSAY OROZCO Address: [address] Address: home [address] [place], [place] Name: CHASIDY CHIN Address: home [address] [place], [place] Name: ANDREW AHMADI Address: home [address] [place], [place]
--- OUTSIDE RECORDS SUMMARY | 2023-12-20 10:59 | XMS_ITS | Continuity of Care Document ---
Author Organization [facility] Address [address] [place] [address]- Care Team Providers Care Vat Operator Name Role Phone Rizwan MEIER, Mendy Zee Primary Care Physician Encounter [facility] [place] Date(s): 03/07/20 - 04/25/[address] [address]- [facility] Attending Physician: Not on Staff, Attending MD Allergies, Adverse Reactions, Alerts Substance Reaction [...] Refills, Maintenance, 02/07/20 1:53:00 EDT, Capsule, [id number], 1 capsule By Mouth Daily, 68.2, kg, [...]
--- OUTSIDE RECORDS SUMMARY | 2023-12-20 10:59 | XMS_ITS | Continuity of Care Document ---
Author Organization [facility] Address [address] [place] [address]- Care Team Providers Care Iron Guardrail Installer Name Role Phone Sean Sparrow MD Primary Care Physician [phone] Encounter [facility] [place] Date(s): 09/07/22 - 11/29/[address] [address] Attending Physician: Dee Pedro CNM Admitting Physician: Dee Pedro CNM Allergies, Adverse Reactions, Alerts No Known Allergies Immunizations Given and Recorded Vaccine Date Status Refusal Reason tetanus/diphtheria/pertussis, acel(Tdap) 09/07/22 Given tetanus/diphtheria/pertussis, acel(Tdap) 04/12/20 Given SARS-CoV-2 mRNA ([id number]-rbkk-pgsdv) vax 04/30/22 Given influenza virus vaccine, inactivated 06/06/20 Give n Medications ferrous sulfate 325 mg oral enteric coated tablet 325 mg, 1, tablet, By Mouth, Daily, # 30 tablet, Refills 6, Tot. Refills 6, Maintenance, 09/18/22 17:54:00 EST, Route to Pharmacy Electronically, [facility]/pharmacy #[id number], Partial fill upon patient requestif [...] drug., 1 tablet Chew Daily, 164, cm, 09/01/22 14:48:0... Start Date: 06/08/22 Status: Ordered Problem [...] Team Personnel Name: Sean Sparrow MD Position: [facility] Outreach Member Role: PCP Address: Address: [address] [place] [address] [place] [address]- Care Team Related Persons Name: LINDSAY OROZCO Address: [address] Address: [address] [place] [address] Name: ERNESTO MARLENA BELLA Address: [address] Address: home [address] [place] [address] Name: CHASIDY CHIN Address: home [address] [place] [address] Name: ANDREW AHMADI Address: [address] [place] [address]
--- OUTSIDE RECORDS SUMMARY | 2023-12-20 10:59 | XMS_ITS | Continuity of Care Document ---
Author Organization [facility] Address [address] [place] [address]- Care Team Providers Care Insulation Board Back Tender Name Role Phone Sean Sparrow MD Primary Care Physician [place] [facility] [place] - 06/27/[address] [address] Attending Physician: Dee Pedro CNM Admitting Physician: Dee Pedro CNM Allergies, Adverse Reactions, Alerts No Known Allergies Immunizations Given and Recorded Vaccine Date Status Refusal Reason SARS-CoV-2 mRNA ([id number]-[id number]-tpthd) vax 04/30/22 Given influenza virus vaccine, inactivated [...] a schedule II opioid . Start Date: 06/25/22 Stop Date: 07/27/22 Status: [...] Refills, Maintenance, 06/08/22 18:36:00 EDT, Chew Tablet, [facility]/pharmacy #[id number], Partial fill upon patient request [...] Name: Sean Sparrow MD Address: Address: [address] [place], [place] [address]-
--- OUTSIDE RECORDS SUMMARY | 2023-12-20 10:59 | XMS_ITS | Continuity of Care Document ---
Author Organization [facility] Address [address] [place] [address]- Care Team Providers Care Temporary Office Assistant Name Role Phone Sean Sparrow MD Primary Care Physician Encounter [facility] [place] Date(s): 12/03/22 - 01/02/[address] [address] Allergies, Adverse Reactions, Alerts No Known Allergies Immunizations Given and Recorded Vaccine Date Status Refusal Reason tetanus/diphtheria/pertussis, acel(Tdap) 09/07/22 Given tetanus/diphtheria/pertussis, acel(Tdap) 04/12/20 Given SARS-CoV-2 mRNA (sjnrcut-fhfm-qutel) vax 04/30/22 Given influenza virus vaccine, inactivated 06/06/20 Give n Medications acetaminophen 325 mg oral tablet 975 mg, 3, tablet, By Mouth, Every 8 hours, PRN, # 60 tablet, Refills 0, Tot. Refills 0, Maintenance, Pain , Moderate, 12/01/22 9:22:00 EDT, Route to Pharmacy Electronically, [facility]/pharmacy #[id number], Partial fill upon patient request if the prescription is... Start Date: 12/01/22 Status: Ordered ferrous sulfate 325 mg oral enteric coated tablet 325 mg, 1, tablet, By Mouth, Daily, # 30 tablet, Refills 6, Tot. Refills 6, Maintenance, 09/18/22 17:54:00 EST, Route to Pharmacy Electronically, [facility]/pharmacy #[id number], Partial fill upon patient requestif the [...] Refills, Maintenance, 12/01/22 9:22:00 EDT, REC Powder, [facility]/pharmacy #[id number], Partial fill upon patient request if the prescription is for a schedule II opioid drug., 17 Gm By Mouth... Start Date: 12/01/22 Status: Ordered oxyCODONE 5 mg oral tablet 5 mg, 1, tablet, By Mouth, Every 3 hours, PRN, (7-10), # 10 tablet, Refills 0, Tot. Refills 0, Maintenance, Pain , Severe, 12/01/22 9:22:00 EDT, Route to Pharmacy Electronically, [facility]/pharmacy #[id number], Partial fill upon patient request if the prescriptio... Start Date: 12/01/22 Status: Ordered Multivitamins with Folic Acid 1.4 mg oral tablet, chewable 1 tablet, Chew, Daily, # 90 tablet, 2 Refills, Maintenance, 06/08/22 18:36:00 EDT, Chew Tablet, [facility]/pharmacy #[id number], Partial fill upon patient request if the prescription is for a schedule II opioid drug., 1 tablet Chew Daily, 164, cm, 04/30/22 14:48:0... Start Date: 06/08/22 Status: Ordered senna - oral tablet 2 tablet, By Mouth, Daily at bedtime, PRN for constipation, # 120 tablet, 0 Refills, Maintenance, 12/01/22 9:22:00 EDT, Tablet, [facility]/pharmacy #[id number], Partial fill upon patient request if the prescription is for a schedule II opioid drug., 165, cm, 12/01... Start Date: 12/01/22 Status: Ordered simethicone 80 mg oral tablet, chewable 80 mg, Chew, 3 times a day, PRN, # 60 tablet, Refills 0, Tot. Refills 0, Maintenance, Gas, 04/04/239:22:00 EDT, Route to Pharmacy Electronically, [facility]/pharmacy #[id number], Partial fill upon patient request if the [...] S Outreach Member Role: PCP Address: Address: [address] [place] [address] [place] [address]- Care Team Related Persons Name: LINDSAY OROZCO Address: [address] Address: home [address] [place] [address] [place] Name: CHASIDY CHIN Address: [address] [place] [address] Name: WESLY TURPIN Address: [address] Address: home [address] [place] [address] [place] Name: ANDREW AHMADI Address: [address] [place] [address]
--- OUTSIDE RECORDS SUMMARY | 2023-12-20 10:59 | XMS_ITS | Continuity of Care Document ---
Author Organization [facility] Address [address] [place] [address]- Care Team Providers Care Adjunct Philosophy Faculty Name Role Phone Mendy Astorga MD Primary Care Physician Encounter [facility] [place] Date(s): 02/06/20 - 02/06/[address] [address]- [facility] Discharge Disposition: Transferred to [facility]-term general hospit Attending Physician: Jalen Howard MD Admitting Physician: Jalen Howard MD Referring Physician: Not on Staff, Referring MD Allergies, Adverse Reactions, Alerts Substance Reaction Severity Status NKA Active Medications Tylenol Extra Strength By Mouth, Every 6 hours, 0 Refills, Maintenance, 02/07/20 0:08:00 EDT Start Date: 02/07/20 Status: Ordered Problem List Condition Effective Dates Status Health Status Inform ant ADHD - Attention deficit dis order with hyperactivity(Confirmed) Active Sleep disorder(Confirmed) Active Vocalization(Confirmed) Active Vital Signs Most recent to oldest [Reference Range]: 1 2 Weight 69.2 kg (02/06/20 10:56 PM) 69.2 kg (02/06/20 10:48 PM) Oxygen Saturation [94-100 %] 100 % (02/06/20 10:48 PM) 100 % (02/06/20 10:24 PM) Pulse Rate [55-90 bpm] 75 bpm (02/06/20 10:48 PM) 78 bpm (02/06/20 10:24 PM) Blood Pressure [90-138/55-84 mm Hg] 111/ 71mm Hg (02/06/20 10:48 PM) Respiratory Rate [16-30 br/min] 20 br/mi n (02/06/20 10:48 PM) 20 br/min (02/06/20 10:24 PM) Temperature [96.8-100.4 DegF] 98.7 DegF (02/06/20 10:48 PM) Mode of Delivery (Oxygen) Room air (02/06/20 10:48 PM) Room air (02/06/20 10:24 PM) Blood pressure sites Arm, right (02/06/20 10:48 PM) Temperature Route Oral (02/06/20 10:48 PM) Dry Weight 69.2 kg (02/06/20 10:56 PM) 69.2 kg (02/06/20 10:48 PM) Weight Obtained Via Standing scale (02/06/20 10:48 PM) Social History Social History Type Response Smoking Status Never (less than 100 in lifetime) entered on: 02/07/20 Sex
--- OUTSIDE RECORDS SUMMARY | 2023-12-20 10:59 | XMS_ITS | Continuity of Care Document ---
Author Organization [facility] ter Address [address] [place] [address]- Care Team Providers Care Systems Test Engineer Name Role Phone Rizwan MEIER, Mendy Zee Primary Care Physician [place] [facility] [place]06/[place] - 02/07/[address] [address]- [facility] Discharge Disposition: A-D/C Home Attending Physician: Lane Castro MD Admitting Physician: Lane Castro MD Referring Physician: Lane Castro MD Allergies, Adverse Reactions, Alerts Substance Reaction Severity Status NKA Active Medications Multivitamins with Folic Acid 1 mg [...] hyperactivity(Confirmed) Active Sleep disorder(Confirmed) Active Vocalization(Confirmed) Active Procedures Procedure Date Related Diagnosis Body Site Status None Completed Vital Signs Most recent to oldest [Reference Range]: 1 Weight 68.2 kg (02/06/20 11:59 PM) Blood Pressure [90-138/55-84 mm Hg] 99/6 9mm Hg (02/07/20 12:14 AM) Temperature [96.8-100.4 DegF] 98.5 DegF (02/07/20 12:14 AM) Blood pressure sites Arm, left (02/07/20 12:14 AM) Temperature Route Oral (02/07/20 12:14 AM) Dry Weight 68.2 kg (02/06/20 11:59 PM) Social History Social History Type Response Smoking Status Never (less than 100 in lifetime) entered on: 02/07/20 Sex
--- OUTSIDE RECORDS SUMMARY | 2023-12-20 10:59 | XMS_ITS | Continuity of Care Document ---
Author Organization [facility] Address [address] [place] [address]- Care Team Providers Care Sales Office Assistant Name Role Phone Sean Sparrow MD Primary Care Physician [phone] [place] [facility] [place]18[place] - 10/18/[address] [address] Allergies, Adverse Reactions, Alerts No Known Allergies Immunizations Given and Recorded Vaccine Date Status Refusal Reason tetanus/diphtheria/pertussis, acel(Tdap) 09/07/22 Given tetanus/diphtheria/pertussis, acel(Tdap) 04/12/20 Given SARS-CoV-2 mRNA ([id number]-hccd-wtyzk) vax 04/30/22 Given influenza virus vaccine, inactivated 06/06/20 Give n Medications ferrous sulfate 325 mg oral enteric coated tablet 325 mg, 1, tablet, By Mouth, Daily, # 30 tablet, Refills 6, Tot. Refills 6, Maintenance, 09/18/22 17:54:00 EST, Route to Pharmacy Electronically, [facility]/pharmacy #[id number], Partial fill upon patient requestif the prescription is for a schedule II opioid padma... Start Date: 09/18/22 Status: Ordered Multivitamins with Folic Acid 1 mg oral tablet 1 tablet, By Mouth, Daily, # 90 tablet, 2 Refills, Maintenance, 04/13/22 18:43:00 EDT, Tablet, [facility]/pharmacy #[id number], Partial fill upon patient request if [...] Team Personnel Name: Sean Sparrow MD Position: [facility] Outreach Member Role: PCP Address: Address: [address] [place] [address] Sean Sparrow MD [place], [place] - Care Team Related Persons Name: LINDSAY OROZCO Address: [address] Address: home [address] [place], [place] Name: CHASIDY CHIN Address: home [address] [place], [place] Name: ANDREW AHMADI Address: [address] [place], [place]
--- OUTSIDE RECORDS SUMMARY | 2023-12-20 10:59 | XMS_ITS | Continuity of Care Document ---
Author Organization [facility] Address [address] [place] [address]- Care Team Providers Care Program Aide Group Work Name Role Phone Sean Sparrow MD Primary Care Physician Encounter [facility] [place] Date(s): 11/13/22 - 12/13/[address] [address] Allergies, Adverse Reactions, Alerts No Known Allergies Immunizations Given and Recorded Vaccine Date Status Refusal Reason tetanus/diphtheria/pertussis, acel(Tdap) 09/07/22 Given tetanus/diphtheria/pertussis, acel(Tdap) 04/12/20 Given SARS-CoV-2 mRNA (ctltetn-lpls-obhln) vax 04/30/22 Given influenza virus vaccine, inactivated 06/06/20 Give n Medications acetaminophen 325 mg oral tablet 975 mg, 3, tablet, By Mouth, Every 8 hours, PRN, # 60 tablet, Refills 0, Tot. Refills 0, Maintenance, Pain , Moderate, 12/01/22 9:22:00 EDT, Route to Pharmacy Electronically, [facility]/pharmacy #[id number], Partial fill upon patient request if the prescription is... Start Date: 12/01/22 Status: Ordered ferrous sulfate 325 mg oral enteric coated tablet 325 mg, 1, tablet, By Mouth, Daily, # 30 tablet, Refills 6, Tot. Refills 6, Maintenance, 09/18/22 17:54:00 EST, Route to Pharmacy Electronically, [facility]/pharmacy #[id number], Partial fill upon patient requestif the [...] Refills, Maintenance, 12/01/22 9:22:00 EDT, REC Powder, [facility]/pharmacy #[id number], Partial fill upon patient request if the prescription is for a schedule II opioid drug., 17 Gm By Mouth... Start Date: 12/01/22 Status: Ordered oxyCODONE 5 mg oral tablet 5 mg, 1, tablet, By Mouth, Every 3 hours, PRN, (7-10), # 10 tablet, Refills 0, Tot. Refills 0, Maintenance, Pain , Severe, 12/01/22 9:22:00 EDT, Route to Pharmacy Electronically, [facility]/pharmacy #[id number], Partial fill upon patient request if the prescriptio... Start Date: 12/01/22 Status: Ordered Multivitamins with Folic Acid 1.4 mg oral tablet, chewable 1 tablet, Chew, Daily, # 90 tablet, 2 Refills, Maintenance, 06/08/22 18:36:00 EDT, Chew Tablet, [facility]/pharmacy #[id number], Partial fill upon patient request if the prescription is for a schedule II opioid drug., 1 tablet Chew Daily, 164, cm, 04/30/22 14:48:0... Start Date: 06/08/22 Status: Ordered senna - oral tablet 2 tablet, By Mouth, Daily at bedtime, PRN for constipation, # 120 tablet, 0 Refills, Maintenance, 12/01/22 9:22:00 EDT, Tablet, [facility]/pharmacy #[id number], Partial fill upon patient request if the prescription is for a schedule II opioid drug., 165, cm, 12/01... Start Date: 12/01/22 Status: Ordered simethicone 80 mg oral tablet, chewable 80 mg, Chew, 3 times a day, PRN, # 60 tablet, Refills 0, Tot. Refills 0, Maintenance, Gas, 239:22:00 EDT, Route to Pharmacy Electronically, [facility]/pharmacy #[id number], Partial fill upon patient request if the [...] Team Personnel Name: Sean Sparrow MD Position: [facility] Outreach Member Role: PCP Address: Address: [address] [place] [address] [place] [address]- Care Team Related Persons Name: LINDSAY OROZCO Address: [address] Address: [address] [place] [address] [place] Name: CHASIDY CHIN Address: [address] [place] [address] Name: WESLY TURPIN Address: [address] Address: home [address] [place] [address] [place] Name: ANDREW AHMADI Address: [address] [place] [address]
--- OUTSIDE RECORDS SUMMARY | 2023-12-20 10:59 | XMS_ITS | Continuity of Care Document ---
Author Organization [facility] Address [address] [place] [address]- Care Team Providers Care Coil Strapper Name Role Phone Rizwan MEIER, Mendy Zee Primary Care Physician En[place] [facility] [place] Date(s): 03/05/20 - 04/04/[address] [address] [facility] Allergies, Adverse Reactions, Alerts Substance Reaction Severity Status NKA Active Medications azithromycin 500 mg oral tablet 2 tablet = 1,000 mg, By Mouth, Once, # 2 tablet, 0 Refills, Soft Stop, 03/29/20 13:26:00 EDT, Tablet, [id number], 152.5, cm, 03/22/20 9:06:00 EDT, Height, 68.2, kg, 02/06/20 23:59:00 EDT, DryWeight Start Date: 03/29/20 Status: Ordered Flagyl 500 mg oral tablet 1 tablet = 500 mg, By Mouth, Every 12 hours, for 7 days, # 14 tablet, 0 Refills, Acute 04/05/20 13:20:00 EDT, 03/29/20 13:20:00 EDT, Tablet, [id number], 152.5, cm, 03/22/20 9:06:00 EDT, Height, 68.2, kg, 02/06/20 23:59:00 EDT, Dry Weight Start Date: 03/29/20 Stop Date: 04/05/20 Status: Ordered Multivitamins with Folic Acid 1 [...]
--- OUTSIDE RECORDS SUMMARY | 2023-12-20 10:59 | XMS_ITS | Continuity of Care Document ---
Author Organization [facility] Address [address] [place] [address]- Care Team Providers Care Photographer Helper Name Role Phone Sean Sparrow MD Primary Care Physician Encounter [facility] Date(s): 12/02/22 - 01/01/[address] [id number] Allergies, Adverse Reactions, Alerts No Known Allergies Immunizations Given and Recorded Vaccine Date Status Refusal Reason tetanus/diphtheria/pertussis, acel(Tdap) 09/07/22 Given tetanus/diphtheria/pertussis, acel(Tdap) 04/12/20 Given SARS-CoV-2 mRNA ([id number]) vax 04/30/22 Given influenza virus vaccine, inactivated 06/06/20 Give n Medications acetaminophen 325 mg oral tablet 975 mg, 3, tablet, By Mouth, Every 8 hours, PRN, # 60 tablet, Refills 0, Tot. Refills 0, Maintenance, Pain , Moderate, 12/01/22 9:22:00 EDT, Route to Pharmacy Electronically, [facility]/pharmacy #[id number], Partial fill upon patient request if the prescription is... Start Date: 12/01/22 Status: Ordered ferrous sulfate 325 mg oral enteric coated tablet 325 mg, 1, tablet, By Mouth, Daily, # 30 tablet, Refills 6, Tot. Refills 6, Maintenance, 09/18/22 17:54:00 EST, Route to Pharmacy Electronically, [facility]/pharmacy #[id number], Partial fill upon patient requestif the [...] Refills, Maintenance, 12/01/22 9:22:00 EDT, REC Powder, [facility]/pharmacy #[id number], Partial fill upon patient request if the prescription is for a schedule II opioid drug., 17 Gm By Mouth... Start Date: 12/01/22 Status: Ordered oxyCODONE 5 mg oral tablet 5 mg, 1, tablet, By Mouth, Every 3 hours, PRN, (7-10), # 10 tablet, Refills 0, Tot. Refills 0, Maintenance, Pain , Severe, 12/01/22 9:22:00 EDT, Route to Pharmacy Electronically, [facility]/pharmacy #[id number], Partial fill upon patient request if the prescriptio... Start Date: 12/01/22 Status: Ordered Multivitamins with Folic Acid 1.4 mg oral tablet, chewable 1 tablet, Chew, Daily, # 90 tablet, 2 Refills, Maintenance, 06/08/22 18:36:00 EDT, Chew Tablet, [facility]/pharmacy #[id number], Partial fill upon patient request if the prescription is for a schedule II opioid drug., 1 tablet Chew Daily, 164, cm, 04/30/22 14:48:0... Start Date: 06/08/22 Status: Ordered senna - oral tablet 2 tablet, By Mouth, Daily at bedtime, PRN for constipation, # 120 tablet, 0 Refills, Maintenance, 12/01/22 9:22:00 EDT, Tablet, [facility]/pharmacy #[id number], Partial fill upon patient request if the prescription is for a schedule II opioid drug., 165, cm, 12/01... Start Date: 12/01/22 Status: Ordered simethicone 80 mg oral tablet, chewable 80 mg, Chew, 3 times a day, PRN, # 60 tablet, Refills 0, Tot. Refills 0, Maintenance, Gas, 04/04/239:22:00 EDT, Route to Pharmacy Electronically, [facility]/pharmacy #[id number], Partial fill upon patient request if the [...] S Outreach Member Role: PCP Address: Address: [address] [place] [address] [place] [address]- Care Team Related Persons Name: LINDSAY OROZCO Address: [address] Address: [address] [place] [address] [place] Name: CHASIDY CHIN Address: [address] [place] [address] Name: WESLY TURPIN Address: [address] Address: home [address] [place] [address] [place] Name: ANDREW AHMADI Address: home [address] [place] [address]
--- OUTSIDE RECORDS SUMMARY | 2023-12-20 10:59 | XMS_ITS | Continuity of Care Document ---
Author Organization [facility] Address [address] [place] [address]- Care Team Providers Care Digital Project Manager Name Role Phone Megha MEIER, Jigna Primary Care Physician [phone] Encounter [facility] Date(s): 11/06/20 - 12/06/[address] [address]- Allergies, Adverse Reactions, Alerts Substance Reaction Severity [...]
--- OUTSIDE RECORDS SUMMARY | 2023-12-20 11:00 | XMS_ITS | Continuity of Care Document ---
Author Organization [facility] Address [address] [place] [address]- Care Team Providers Care Support Services Coordinator Name Role Phone Sean Sparrow MD Primary Care Physician Encounter [facility] Date(s): 07/27/22 - 08/26/[address] [address] Allergies, Adverse Reactions, Alerts No Known Allergies Immunizations Given and Recorded Vaccine Date Status Refusal Reason SARS-CoV-2 mRNA ([id number]) vax 04/30/22 Given influenza virus vaccine, inactivated [...] tablet, 3 Refills, Maintenance, 06/08/22 18:30:00 EDT, [facility]/pharmacy #[id number], Partial fill upon patient request if the prescription is for a schedule II opioid drug., 164, cm, 04/30/22 14:48:00 ED... Start Date: 06/08/22 Status: Ordered Vitamin B6 25 mg oral tablet See Instructions, 1 tablet By Mouth 3 times Daily, # 90 tablet, 3 Refills, Maintenance, 06/08/22 18:30:00 EDT, [facility]/pharmacy #[id number], Partial fill upon patient request [...] Team Personnel Name: Sean Sparrow MD Position: [facility] Outreach Member Role: PCP Address: Address: [address] [place] [address]- Care Team Related Persons Name: ERNESTOLINDSAY Address: [address] Address: home [address] [place] [address] [place] Name: CHASIDY CHIN Address: home [address] [place] [address] Name: ANDREW AHMADI Address: [address] [place] [address]
--- OUTSIDE RECORDS SUMMARY | 2023-12-20 11:00 | XMS_ITS | Continuity of Care Document ---
Author Organization [facility] Address [address] [place] [address]- Care Team Providers Care Ship Purser Name Role Phone Mendy Astorga MD Primary Care Physician Encounter [facility] Date(s): 03/14/20 - 04/20/[address] [address]- [facility] Attending Physician: Not on Staff, Attending MD [...]
--- OUTSIDE RECORDS SUMMARY | 2023-12-20 11:00 | XMS_ITS | Continuity of Care Document ---
Author Organization [facility] Address [address] [place] [address]- Care Team Providers Care Garage Door Hanger Name Role Phone Kyara MEIER, Sean Primary Care Physician Encounter [facility] Date(s): 01/09/21 - 02/08/[address] [address]- Allergies, Adverse Reactions, Alerts Substance Reaction Severity [...]
--- OUTSIDE RECORDS SUMMARY | 2023-12-20 11:00 | XMS_ITS | Continuity of Care Document ---
Author Organization [facility] Address [address] [place] [address]- Care Team Providers Care Flash Oven Operator Name Role Phone Not on Staff, PCP Primary Care Physician Unavail able Encounter [facility] Date(s): 10/21/21 - 10/21/[address] [address]- Encounter Diagnosis Marijuana use(Final) - 10/21/21 Discharge Disposition: A-D/C Home Attending Physician: Jan Rene MD Admitting Physician: Jan Rene MD Referring Physician: Not on Staff, Referring [...] Vocalization(Confirmed) Active 1last treated around age 13 Results Radiology Reports * Exam Date Time Procedure Performing Provider Status 10/21/21 5:26 PM Chest Portable Salvatore Geller; Auth (Ve rified) Notes: (Chest Portable) Reason For Exam: Shortness of Breath RESULT: Chest Portable Chest Portable Hx of Present Illness: unresponsive; Reason: Shortness of Breath; Clinical Question(s): CHF COMPARISON: None. FINDINGS: LINES AND TUBES: None. LUNGS AND PLEURA: Low lung volumes with mild basilar atelectasis. Lungs are otherwise clear with no consolidation. No pleural effusion. No pneumothorax. HEART, MEDIASTINUM AND KENNY: Heart is normal in size. Normal upper mediastinal and hilar contour. BONES AND SOFT TISSUES: No acute abnormality. IMPRESSION: No acute abnormality. WSN: [id number] Ordering Physician: Mary Lou Webber Dictated By: Krissy MEIER, Primitivo Alvarez Dictated Date/Time: 10/21/21 5:41 pm Reviewed By: Primitivo Rey MD Signed By: Primitivo Rey MD Signed Date/Time: 10/21/21 5:41 pm Transcribed By: DIANA Transcribed Date/Time: 10/21/21 5:29 pm Vital Signs Most recent to oldest [Reference Range]: 1 2 3 Oxygen Saturation [94-100 %] 100 % (10/21/21 8:21 PM) 100 % (10/21/21 6:07 PM) 100 % (10/21/21 4:37 PM) Pulse Rate [55-90 bpm] 91 bpm *H* (10/21/21 8:21 PM) 85 bpm (10/21/21 6:07 PM) 78 bpm (10/21/21 4:37 PM) Blood Pressure [90-138/55-84 mm Hg] 110/72mm Hg (10/21/21 8:21 PM) 100/56mm Hg (10/21/21 6:07 PM) 104/68mm Hg (10/21/21 4:37 PM) Respiratory Rate [16-30 br/min] 20 br/min (10/21/21 8:21 PM) 18 br/min (10/21/21 6:07 PM) 18 br/min (10/21/21 4:37 PM) Temperature [96.8-100.4 DegF] 97.9 DegF (10/21/21 8:21 PM) 97.6 DegF (10/21/21 4:16 PM) Mode of Delivery (Oxygen) Room air (10/21/21 8:21 PM) Room air (10/21/21 6:07 PM) Room air (10/21/21 4:37 PM) Blood pressure sites Arm, right (10/21/21 8:21 PM) Arm, right (10/21/21 6:07 PM) Arm, right (10/21/21 4:37 PM) Temperature Route Oral (10/21/21 8:21 PM) Oral (10/21/21 4:16 PM) Social History Social History Type Response Smoking Status Never (less than 100 in lifetime) entered on: 02/07/20 Sex
--- OUTSIDE RECORDS SUMMARY | 2023-12-20 11:00 | XMS_ITS | Continuity of Care Document ---
Author Organization [facility] Address [address] [place] [address]- Care Team Providers Care Primary Operator Name Role Phone Sean Sparrow MD Primary Care Physician [phone] [id number] Date[facility] - 05/07/[address] [address] Attending Physician: Not on Staff, Attending MD Allergies, Adverse Reactions, Alerts No Known Allergies Immunizations Given and Recorded Vaccine Date Status Refusal Reason tetanus/diphtheria/pertussis, acel(Tdap) 09/07/22 Given tetanus/diphtheria/pertussis, acel(Tdap) 04/12/20 Given SARS-CoV-2 mRNA ([id number]) vax 04/30/22 Given influenza virus vaccine, inactivated 06/06/20 Give n Medications acetaminophen 325 mg oral tablet 975 mg, 3, tablet, By Mouth, Every 8 hours, PRN, # 60 tablet, Refills 0, Tot. Refills 0, Maintenance, Pain , Moderate, 12/01/22 9:22:00 EDT, Route to Pharmacy Electronically, [facility]/pharmacy #[id number], Partial fill upon patient request if the [...] Team Personnel Name: Sean Sparrow MD Position: [facility] Outreach Member Role: PCP Address: Address: [address] [place] [address] [place] [address]- Care Team Related Persons Name: LINDSAY OROZCO Address: [address] Address: [address] [place] [address] [place] Name: CHASIDY CHIN Address: [address] [place] [address] Name: WESLY TURPIN Address: [address] Address: home [address] [place] [address] Name: ANDREW AHMADI Address: [address] [place] [address]
--- OUTSIDE RECORDS SUMMARY | 2023-12-20 11:00 | XMS_ITS | Continuity of Care Document ---
Author Organization [facility] Address [address] [place] [address]- Care Team Providers Care Manager Military Name Role Phone Sean Sparrow MD Primary Care Physician Encounter [facility] Date(s): 10/23/22 - 12/06/[address] [address] Attending Physician: Not on Staff, Attending MD Allergies, Adverse Reactions, Alerts No Known Allergies Immunizations Given and Recorded Vaccine Date Status Refusal Reason tetanus/diphtheria/pertussis, acel(Tdap) 09/07/22 Given tetanus/diphtheria/pertussis, acel(Tdap) 04/12/20 Given SARS-CoV-2 mRNA ([id number]) vax 04/30/22 Given influenza virus vaccine, inactivated 06/06/20 Give n Medications acetaminophen 325 mg oral tablet 975 mg, 3, tablet, By Mouth, Every 8 hours, PRN, # 60 tablet, Refills 0, Tot. Refills 0, Maintenance, Pain , Moderate, 12/01/22 9:22:00 EDT, Route to Pharmacy Electronically, [facility]/pharmacy #[id number], Partial fill upon patient request if the prescription is... Start Date: 12/01/22 Status: Ordered ferrous sulfate 325 mg oral enteric coated tablet 325 mg, 1, tablet, By Mouth, Daily, # 30 tablet, Refills 6, Tot. Refills 6, Maintenance, 09/18/22 17:54:00 EST, Route to Pharmacy Electronically, [facility]/pharmacy #[id number], Partial fill upon patient requestif the [...] Refills, Maintenance, 12/01/22 9:22:00 EDT, REC Powder, [facility]/pharmacy #[id number], Partial fill upon patient request if the prescription is for a schedule II opioid drug., 17 Gm By Mouth... Start Date: 12/01/22 Status: Ordered oxyCODONE 5 mg oral tablet 5 mg, 1, tablet, By Mouth, Every 3 hours, PRN, (7-10), # 10 tablet, Refills 0, Tot. Refills 0, Maintenance, Pain , Severe, 12/01/22 9:22:00 EDT, Route to Pharmacy Electronically, [facility]/pharmacy #[id number], Partial fill upon patient request if the prescriptio... Start Date: 12/01/22 Status: Ordered Multivitamins with Folic Acid 1.4 mg oral tablet, chewable 1 tablet, Chew, Daily, # 90 tablet, 2 Refills, Maintenance, 06/08/22 18:36:00 EDT, Chew Tablet, [facility]/pharmacy #[id number], Partial fill upon patient request if the prescription is for a schedule II opioid drug., 1 tablet Chew Daily, 164, cm, 04/30/22 14:48:0... Start Date: 06/08/22 Status: Ordered senna - oral tablet 2 tablet, By Mouth, Daily at bedtime, PRN for constipation, # 120 tablet, 0 Refills, Maintenance, 12/01/22 9:22:00 EDT, Tablet, [facility]/pharmacy #[id number], Partial fill upon patient request if the prescription is for a schedule II opioid drug., 165, cm, 12/01... Start Date: 12/01/22 Status: Ordered simethicone 80 mg oral tablet, chewable 80 mg, Chew, 3 times a day, PRN, # 60 tablet, Refills 0, Tot. Refills 0, Maintenance, Gas, 239:22:00 EDT, Route to Pharmacy Electronically, [facility]/pharmacy #[id number], Partial fill upon patient request if the [...] Team Personnel Name: Sean Sparrow MD Position: [facility] Outreach Member Role: PCP Address: Address: [address] [place] [address] [place] [address]- Care Team Related Persons Name: LINDSAY OROZCO Address: [address] Address: home [address] [place] [address] [place] Name: CHASIDY CHIN Address: home [address] [place] [address] Name: WESLY TURPIN Address: [address] Address: home [address] [place] [address] [place] Name: ANDREW AHMADI Address: home [address] [place] [address]
--- OUTSIDE RECORDS SUMMARY | 2023-12-20 11:00 | XMS_ITS | Continuity of Care Document ---
Author Organization [facility] ter Address [address] [place] [id number] Care Team Providers Care Binding End Stitcher Name Role Phone Sean Sparrow MD Primary Care Physician Encounter [facility] Date(s): 11/26/22 - 12/01/[address] [id number] Discharge Disposition: A-D/C Home Attending Physician: Volodymyr MEIER [OB], aMria E Morales Admitting Physician: Volodymyr MEIER [OB], Maria E Morales Referring Physician: Volodymyr MEIER [OB], Maria E Morales Allergies, Adverse Reactions, Alerts No Known Allergies Immunizations Given and Recorded Vaccine Date Status Refusal Reason tetanus/diphtheria/pertussis, acel(Tdap) 09/07/22 Given tetanus/diphtheria/pertussis, acel(Tdap) 04/12/20 Given SARS-CoV-2 mRNA (asabahl-jsmh-tydjp) vax 04/30/22 Given influenza virus vaccine, inactivated 06/06/20 Give n Medications acetaminophen 325 mg oral tablet 975 mg, 3, tablet, By Mouth, Every 8 hours, PRN, # 60 tablet, Refills 0, Tot. Refills 0, Maintenance, Pain , Moderate, 12/01/22 9:22:00 EDT, Route to Pharmacy Electronically, [facility]/pharmacy #[id number], Partial fill upon patient request if the prescription is... Start Date: 12/01/22 Status: Ordered acetaminophen 325 mg oral tablet 650 mg, Tablet, By Mouth, Every 4 hours, PRN for Pain , Moderate, Routine, 11/28/22 11:27:00 EDT Start Date: 11/28/22 Stop Date: 12/01/22 Status: Discontinued ferrous sulfate 325 mg oral enteric coated tablet 325 mg, 1, tablet, By Mouth, Daily, # 30 tablet, Refills 6, Tot. Refills 6, Maintenance, 09/18/22 17:54:00 EST, Route to Pharmacy Electronically, [facility]/pharmacy #[id number], Partial fill upon patient [...] Tot. Refills... Start Date: 12/01/22 Status: Ordered Ibuprofen Tablet 800 mg, Tablet, By Mouth, (4-6), may give 400mg per patient preference and re- dose with 400mg within 8 hours, if needed. Patient should only receive a total of 800mg of Ibuprofen every 8 hours., 12/01/22 3:00:00 EDT Start Date: 12/01/22 Stop Date: 12/01/22 Status: Completed MiraLax oral powder for reconstitution = 17 Gm, By Mouth, Daily, dissolve in water before taking, # 255 Gm, 1 Refills, Maintenance, 12/01/22 9:22:00 EDT, REC Powder, [facility]/pharmacy #[id number], Partial fill upon patient request if the prescription is for a schedule II opioid drug., 17 Gm By Mouth... Start Date: 12/01/22 Status: Ordered oxyCODONE 5 mg oral tablet 5 mg, 1, tablet, By Mouth, Every 3 hours, PRN, (7-10), # 10 tablet, Refills 0, Tot. Refills 0, Maintenance, Pain , Severe, 12/01/22 9:22:00 EDT, Route to Pharmacy Electronically, [facility]/pharmacy #[id number], Partial fill upon patient request if the prescriptio... Start Date: 12/01/22 Status: Ordered OxyCODONE IR Tablet 5 mg, Tablet, By Mouth, Every 3 hours, PRN for Pain , Severe, (7-10), Routine, 11/29/22 1:38:00 EDT Start Date: 11/29/22 Stop Date: 12/01/22 Status: Discontinued Multivitamins with Folic Acid 1.4 mg oral tablet, chewable 1 tablet, Chew, Daily, # 90 tablet, 2 Refills, Maintenance, 06/08/22 18:36:00 EDT, Chew Tablet, [facility]/pharmacy #[id number], Partial fill upon patient request if the prescription is for a schedule II opioid drug., 1 tablet Chew Daily, 164, cm, 04/30/22 14:48:0... Start Date: 06/08/22 Status: Ordered senna - oral tablet 2 tablet, By Mouth, Daily at bedtime, PRN for constipation, # 120 tablet, 0 Refills, Maintenance, 12/01/22 9:22:00 EDT, Tablet, [facility]/pharmacy #[id number], Partial fill upon patient request if the prescription is for a schedule II opioid drug., 165, cm, 12/01... Start Date: 12/01/22 Status: Ordered simethicone 80 mg oral tablet, chewable 80 mg, Chew, 3 times a day, PRN, # 60 tablet, Refills 0, Tot. Refills 0, Maintenance, Gas, 239:22:00 EDT, Route to Pharmacy Electronically, [facility]/pharmacy #[id number], Partial fill upon patient request if the prescription is for a schedule II opioid drRiri. Start Date: 12/01/22 Status: Ordered Problem List Condition Confirmation Course Effective Dates Status H ealth Status Informant ADHD - Attention deficit disorder with hyperactivity 1 Confirmed Active History of section Confirmed Active Obese class I Confirmed Active 1last treated around age 13 Procedures Procedure Date Related Diagnosis Body Site Status delivery only; 11/28/22 C ompleted Vital Signs Most recent to oldest [Reference Range]: 1 2 3 Height 165 cm (12/01/22 8:31 AM) 165 cm (12/01/22 12:19 AM) 165 cm (11/30/22 4:45 PM) Weight 83 kg (11/26/22 9:35 PM) Oxygen Saturation [94-100 %] 97 % (12/01/22 8:31 AM) 97 % (12/01/22 12:19 AM) 98 % (11/30/22 4:45 PM) Pulse Rate [55-90 bpm] 75 bpm (12/01/22 8:31 AM) 94 bpm *H* (12/01/22 12:19 AM) 91 bpm *H* (11/30/22 4:45 PM) Body Mass Index [18.5-24.99 kg/m2] 30.49 kg/m2 *>HHI* (11/26/22 9:35 PM) Blood Pressure [90-138/55-84 mm Hg] 113/65mm Hg (12/01/22 8:31 AM) 104/63mm Hg (12/01/22 12:19 AM) 107/49mm Hg (11/30/22 4:45 PM) Respiratory Rate [16-30 br/min] 18 br/min (12/01/22 3:22 AM) 18 br/min (12/01/22 3:22 AM) 18 br/min (12/01/22 3:22 AM) Temperature [96.8-100.4 DegF] 98.3 DegF (12/01/22 8:31 AM) 98.5 DegF (12/01/22 12:19 AM) 98.1 DegF (11/30/22 4:45 PM) Mode of Delivery (Oxygen) Room air (12/01/22 8:31 AM) Room air (12/01/22 12:19 AM) Room air (11/30/22 12:04 AM) Blood pressure sites Arm, left (12/01/22 8:31 AM) Arm, right (12/01/22 12:19 AM) Arm, left (11/30/22 12:04 AM) Temperature Route Oral (12/01/22 8:31 AM) Oral (12/01/22 12:19 AM) Oral (11/30/22 4:45 PM) Dry Weight 83 kg (11/26/22 9:35 PM) Social History Social History Type Response Smoking Status Never (less than 100 in lifetime) entered on: 02/07/20 Sex History and physical note * Yang Ogden DO R: PERFORM, MODIFY, MODIFY, MODIFY Event Display: History and Physical Hospital Authored Date: Patient: ??ALESHA CRAWFORD ? Age:??22 Years?Sex:??Female?:??2000?? OB Reason for Admission OB Reason for Admission Reason for admission: Induction of labor Reason for Induction: Late term Method of Induction: Cervical Laureano Inpatient, Pitocin LMP/EGA/JULIET Gestational Age (EGA) and JULIET? * Note: EGA calculated as of 11/26/2022 ?? JULIET:??11/19/2022?EGA*:??41 weeks ? History?(1,0,0,1)?Method:??Ultrasound??(04/22/2022) History of Present Illness Ms. Alesha Crawford is a 22 year old (1,0,0,1) at 41+0 with PMH ADHD, Anemia or , and history of complicated for induction??for late term TOLAC.??Her previous in 2019 was??complicated by PPH requiring pit, txa, miso, methergen x2, baqri, D&C, and 2u pRBC. She has been taking iron supplements as instructed as well as vitamins. She feels baby moving around, has not felt her water break, wants epidural and PO meds for pain control, and was last checked Wednesday and was 1cm at that time. She has no other new complaints today. Review of Systems ?Constitutional: No fevers or chills ?Eyes: No changes in vision ?ENT: No difficulty swallowing ?Cardiovascular: No chest pain or palpitations ?Respiratory: no SOB, cough or wheezes ?Gastrointestinal: No abdominal pain, nausea, vomiting, diarrhea, or constipation ?Genitourinary: No dysuria ?Musculoskeletal: No stiffness or swelling ?Integumentary: no rashes ?Neurological: no headaches or numbness ?Endocrine: no excessive thirst or sweating ?All others negative as per HPI Physical Exam Vitals & Measurements T:??98.0?F ?? HR:??91(Monitored)?? DC:??91?? RR:??18?? BP:??120/70?? SpO2:??98%?? HT:??165??cm?? WT:??83??kg?? BMI:??30.49?? General: No acute distress, awake, alert and oriented x3? Cardiovascular:?Heart Rhythm ( Regular ), Heart Sounds ( S1, S2 ). ?? Abdomen/GI: ??Within normal limits, Gravid, Non-tender, no rebound, no guarding Respiratory: ??Within normal limits, Respiratory pattern,??no increased work of breathing? Extremities: ??Within normal limits, Extremities,??trace?? Edema Assessment/Plan Assessment:??Ms. Alesha Crawford is a 22 year old (1,0,0,1) at 41+0 with PMH ADHD, Anemia or , and history of complicated for induction for late term TOLAC. Her previous in 2019 was complicated by PPH requiring pit, txa, miso, methergen x2, baqri, D&C, and 2u pRBC. GBS negative. Plan IOL w/ Pitocin, laureano, and expectant management. EFW pending. CE pending, last 11/20??0/0/-4. ? (Z33.1):? -IOL w/ Augmentation w/??Pitocin, Laureano -TOLAC -VE now and??q2hr or PRN -EFW pending -Pain: epidural -GBS negative -PP control: Depo ?? Anemia in (O99.019):? -08/24: 10.3/32.1 -11/13: 8.4/27.8 -Repeat CBC now -Hold 2uPRBC -Home Meds: Iron supplementation -Asymptomatic ?? History of section (Z98.891):? 06/2020 NRFHR per Op note: Immediate postop course complicated by PPH secondary to atony. She received a second 20unit of pitocin, TXA, miso, Methergine x2, as well as suction D&C for clot removal and placement of Bakri. She received 2 unit of pRBC. -Current Placenta location: anterior fundal, Accreta is not suspected ?? Trichomoniasis (A59.9):? -Dx on 04/30 -10/09: [place] negative ?? Attention deficit disorder with hyperactivity (F90.9):? -Home Medications: None ?? OB History History?(1,0,0,1)? # 1 ?Baby 1 ?Outcome Date:??07/07/2020?Outcome or Result:??, low transverse ?Gest Age:??40 weeks 4 days ? Outcome:??Live ? Sex:??Male?Wt:?3520 g ? Complications:??Meconium stained fluid Labs Labs Labs & Tests ABO: B (04/16/22) Antibody Screen: Negative (04/16/22) Chlamydia Trachomatis Amplified Probe: NEGATIVE (10/09/22) Down Syndrome Age Risk FTS: Age Risk: (05/13/22) Down Syndrome Scrn Risk FTS: Screening Risk: (05/13/22) Glucose 50 Gm, +60 Minutes:??134 mg/dL??High (08/27/22) Hct:??27.8 %??Low (11/13/22) Hemoglobinopathy Interpretation: Normal hemoglobins. (04/16/22) Hepatitis B Surface Antigen: NEGATIVE (04/16/22) Hepatitis C Ab: NEGATIVE (04/16/22) Hgb:??8.4 Gm/dL??Low (11/13/22) HIV 4th Generation Ab-Ag Result: NEGATIVE (08/27/22) RH Test Only: Positive (04/16/22) RPR Titer Result: NOT INDICATED (08/27/22) Rubella IgG Ab: POSITIVE (04/16/22) Syphilis Screen by PIPPA: NEGATIVE (08/27/22) Trisomy 18 Scrn Risk FTS: Screening Risk: (05/13/22) Urine Culture: Urine Culture (04/16/22) Varicella IgG Ab: POSITIVE (04/16/22) Problem List Active Active Problem List ADHD - Attention deficit disorder with hyperactivity: (Medical) last treated around age 13 History of section: (Medical) Obese class I: (Medical) : (Obstetric) (01/28/22) Procedure/Surgical History delivery only;: 07/07/20 Home Medications Ferrous Sulfate: 325 mg = 1 tablet, By Mouth, Daily Multivitamin, : 1 tablet, Chew, Daily Allergies NKA Social History Alcohol Use: Never., 02/07/2020 Electronic Cigarette/Vaping Electronic Cigarette Use: Never., 04/13/2022 Employment/School Status: Employed. Other: [employer] 04/13/2022 Exercise Self assessment: Good condition. Regular exercise: Yes., 04/13/2022 Home/Environment Living situation: Home/Independent. Lives with: Children, Significant other, Partner Mom and Sister. Feels unsafe at home: No., 04/13/2022 Nutrition/Health Diet: Regular., 02/07/2020 Sexual Sexually involved in last 6 months: Yes. Gender identity: Identifies as female. Self described orientation: Straight or heterosexual. Preferred pronoun: She/her., 03/14/2020 Substance Abuse Use: Past. Type: Marijuana., 02/07/2020 Tobacco Use: Never (less than 100 in lifetime)., 02/07/2020 Family History No positive family history reported. Plan No Data Found * Rebecca MEIER, Lupe: PERFORM Event Display: History and Physical Hospital Authored Date: [id number] Confirmed vertex by US with Dr. Segovia, PGY-[address] Helm, attending physician. head is not well applied. * Volodymyr MEIER [OB], Maria E Morales: PERFORM Event Display: History and Physical Hospital Authored Date: [id number] ?Attending Attestation:??I have seen and evaluated this patient. ??I have discussed the caseand its management with the resident and agree with the findings and plan as documented above in the resident???s note. ?I did an US on admission, presentation cephalic but not engaged in the pelvis.?? Plan to ensure continued cephalic presentation throughout labor via exams or ultrasound. Hospital Progress note * Dolores Bowles: PERFORM, SIGN, VERIFY Event Display: Progress Note Hospital Authored Date: [id number] Patient: ALESHA CRAWFORD Age: 22 years Sex: Female : 2000 Associated Diagnoses: None Author: Dolores Bowles Discharge instructions reviewed with pt, all questions answered. Pt has follow up appt scheduled for 12/25- to call sooner with any questions/concerns. Bands verified and cut. Pt left unit ambulatory with and significant other. * Dolores Bowles: PERFORM, SIGN, VERIFY Event Display: Progress Note Hospital Authored Date: Patient: ALESHA CRAWFORD Age: 22 years Sex: Female : 2000 Associated Diagnoses: None Author: Dolores Bowles Pt A&O x 3, VSS rooming in with infant and bonding well. Assessment as documented. Steri stripsc/d/i. Pt reports voiding without difficulty and passing flatus. Pt reports feeling better after iron infusion and denies any dizziness. Reviewed plan of care for the shift, will continue to monitor Findings Problem Related to Alteration in Comfort : Alteration in Comfort/new 11/30/2022 20:00 EDT Alteration in Comfort Related to Surgery Goals & Outcomes: Comfort Pt will report acceptable level of comfort & pain control, Pt will state importance of adhering to pain strategy regime, Pt will demonstrate necessary skills to manage pain, Non-verbal indicators will indicate comfort/pain control, Resolved problem, Goals/Outcomes met Interventions Implemented: Comfort Assess pain using appropriate pain scale/tools, Assess aggravating factors & prevent them accordingly Goals/Interventions, Comfort Yes Comfort, Problem Start 11/28/2022 15:12 Reviewed plan with, Comfort Patient Patient Progression, Comfort Pt progressing according to plan Comfort, Problem Ongoing Yes . * Aldo SAAB, Nelda Finley: PERFORM, SIGN, VERIFY Event Display: Progress Note Hospital Authored Date: [id number] Patient: ALESHA CRAWFORD Age: 22 years Sex: Female : 2000 Associated Diagnoses: None Author: Aldo RN, Nelda Finley Pt ob stable at this time, fundus is down and firm, mild rubra flow on mina pad noted. Incision is clean and dry. Pt is passing and voiding. Pt denies dizziness/lightheadedness at this time. Pain under good control with Oxycodone along with motrin and Tylenol. Findings Problem Related to Alteration in Comfort : Alteration in Comfort/new 11/30/2022 20:00 EDT Alteration in Comfort Related to Surgery Goals & Outcomes: Comfort Pt will report acceptable level of comfort & pain control, Pt will state importance of adhering to pain strategy regime, Pt will demonstrate necessary skills to manage pain, Non-verbal indicators will indicate comfort/pain control, Resolved problem, Goals/Outcomes met Interventions Implemented: Comfort Assess pain using appropriate pain scale/tools, Assess aggravating factors & prevent them accordingly BH Goals/Interventions, Comfort Yes Comfort, Problem Start 11/28/2022 15:12 Reviewed plan with, Comfort Patient Patient Progression, Comfort Pt progressing according to plan Comfort, Problem Ongoing Yes . Note * Dolores Bowles: PERFORM Event Display: Discharge/Transfer Note Hospital Authored Date: [id number] Nursing Discharge Note Entered On: 12/01/2022 11:27 EDT Performed On: 12/01/2022 11:22 EDT by Dolores Bowles Nursing Discharge Note 2 Discharge Time : 12/01/2022 11:22 EDT Discharge Level of Care at Discharge : Home/Assisted/Foster Care Patient Left Unit Via : Ambulatory Patient Accompanied Off Unit with : Significant other DC Instructions Provided & Signed by Pt : Yes Patient Understands D/C Instructions : Yes Patient Instructions Discharge Signed : Yes Did Pt have Specialty Bed or Wound Vac : No Dolores Bowles - 12/01/2022 11:25 EDT * Damian MEIER, Tasha Francisco: PERFORM Event Display: Discharge/Transfer Note Hospital Authored Date: [id number] Patient: ??ALESHA CRAWFORD ? Age:??22 Years?Sex:??Female?:??2000?? Admit Date Admission Date: 11/26/2022 Discharge Date 12/01/2022 OB Reason for Admission OB Reason for Admission Reason for admission: Induction of labor Reason for Induction: Late term Method of Induction: Cervical Laureano Inpatient, [facility] Course Ms. Alesha Crawford is a 22 year old (1,0,0,1) at 41+0??with history of C- section, postpartumhemorrhage??admitted for induction for late term TOLAC. She has a failed induction for failure to dilate and underwent a repeat with lower uterine atony, treated with methergine, hemabate, TXA. , she had symptomatic anemia and was treated with IV iron infusion. She received Depofor contraception. She met milestones and was discharged. Objective/Physical Exam on Day of Discharge Vitals & Measurements T:??98.3?F ?? HR:??58(Monitored)?? DC:??75?? RR:??18?? RR:??18?? RR:??18?? BP:??113/65?? SpO2:??97%?? HT:??165??cm?? WT:??4.090??kg?? BMI:??30.49?Constitutional: Well-developed, well-nourished, no acute distress?Lungs: Clear to auscultation bilaterally, unlabored breathing?Cardiovascular: Regular rate and rhythm.?Abdomen/GI: soft, appropriately tender, mildly distended, no guarding or rebound tenderness; incision is clean, dry, intact; no evidence of induration/erythema ?Fundus:??below??umbilicus, firm, non-tender ?Gynecologic: Minimal blood on pad ?Extremities: Equal bilaterally, no calf tenderness ?Skin: No rash or jaundice ?Neurological/Psychiatric:??appropriate appearance, mood and affect Assessment/Plan/Discharge Diagnosis Assessment:??Alesha is a 22 year old G2 now P2 POD3 from a repeat section. Stable anemia,yesterday, treated with IV iron infusion; symptoms of anemia are much improved today. She is meeting post operative milestones. Appropriate for discharge. ?? Status post section (Z98.891):? -??Discharge - Discharge teaching done -??ibuprofen, Tylenol and PRN oxycodone, rx sent ??- Bowel regimen, rx sent ??- Encouraged ??- Encouraged ambulation ??- PPBC: Depo ?? Anemia (D64.9):? PO iron supplementation, rx sent constipation precautions given, bowel reg sent Consider repeat IV iron infusion when seen at [facility] s/p IV iron infusion ?? History of hemorrhage (Z87.59):? -??in previous delivery: required Bakri, 2 units pRBCs in previous delivery - QBL 526ml from this delivery ?? Patient discussed with and seen by Dr. Petersen, attending physician Future Appointments Wednesday 9:00 AM EDT ?? With: Viridiana Barreto CNM Where: [facility] [address] [place] [address]- Delivery Summary Delivery Summary Maternal Information ??Delivery Information ?Gestational Age at Delivery: ??41W 2D ?Anesthesia OB: ??Epidural ??11/27/22 22:28:13, Epidural ??11/27/22 10:24:05, Epidural ??11/27/22 10:10:58 ?Blood Loss - Quantitative: ??526 mL ? Baby A ??Delivery Information ?Delivery Type: ??, low transverse ?Reason for : ??Failed TOLAC ? Priority: ??Non scheduled ?Decision for : ??11/27/22 22:28:00 ?Incision Time for : ??11/28/22 00:54:00 ?Decision to Incision time: ??146 min ?Date, Time of : ??11/28/22 01:00:00 ?Delayed Cord Clamping: ??Yes ?Placenta Delivery Date/Time: ??11/28/22 01:01:00 ??Care Team ?Time NICU Team Called: ??11/28/22 00:58:00 ??Labor Information ?ROM Date, Time: ??11/27/22 13:39:00 ? monitoring: ??External monitor ?? Information ? Outcome: ??Live ? Weight: ??4.090 kg ? Score 1 minute: ??9 ? Score 5 minute: ??9 ? Score 10 minute: ??9 ?Transferred To: ?? Care area with Family ?Gender: ??Male ? Discharge Medications ???Acetaminophen (acetaminophen 325 mg oral tablet)???Ferrous Sulfate (ferrous sulfate 325 mg oral enteric coated tablet)???Ibuprofen (ibuprofen 800 mg oral tablet)???Multivitamin, (PrenatalMultivitamins with Folic Acid 1.4 mg oral tablet, chewable)???Oxycodone (oxyCODONE 5 mg oral tablet)???Polyethylene Glycol 3350 (MiraLax oral powder for reconstitution)???Senna (senna - oral tablet)???Simethicone (simethicone 80 mg oral tablet, chewable) Immunizations during Hospitalization Vaccine Date Statustetanus/diphtheria/pertussis, acel(Tdap) 09/07/2022 Given SARS-CoV-2 mRNA (bibevmi-egji-dcxsm) vax 04/30/2022 Given influenza virus vaccine, inactivated 06/06/2020 Given tetanus/diphtheria/pertussis, acel(Tdap) 04/12/2020 Given Contraception Depoprovera ? Infant Feeding Method [facility] Feeding Method: (11/28/22 02:00:00) Patient Education Titles OB PP [facility]- Discharge Instructions?? OB PP Warning Signs?? Follow-Up Appointments Added Follow Up ?Time Frame ?Comments Call [facility] HE[facility] NURSE to schedule follow up visit Patient Instructions Call the office with any concerns including:?? Vaginal bleeding more than spotting Fever of 100.4 or greater Foul-smelling vaginal discharge Redness/swelling/drainage at incision Difficulty or burning with urination?? Nausea and vomiting with inability to tolerate food,?? Pain not controlled by your prescribed medications Shortness of breath or chest pain. Swelling of the extremities. Dizziness or heart palpitations ?? General Instructions: - Do not drive while taking opioid medications. Do not drive for 1-2 weeks - Avoid lifting anything 15 lbs or greater until cleared by doctor. - Stairs are OK but avoid multiple trips/ skipping steps and go slowly. - Walk as often as you are able. - Do not put anything in the vagina. No intercourse, tampons, or douching - Continue your stool softeners (examples: Colace/docusate, senna, Miralax) until no longer taking opioids (e.x. oxycodone) and stools are regular. - Shower as usual. Do not scrub the incisions. Pat the skin dry. Avoid tubs/ soaking/ pools. * Bettie Petersen DO: PERFORM Event Display: Discharge/Transfer Note Hospital Authored Date: [id number] Pt seen and evaluated.?? Agree with resident documentation.?? Discharged home in good condition.? Bettie Petersen DO 12/01/2022 09:37:24 * Dolores Bowles: PERFORM Event Display: Patient Education/Instruction Authored Date: [id number] Inpatient Adult Discharge Instructions [address] [address] Name: ALESHA CRAWFORD : 2000 Visit: 11/26/2022 20:44:00 Current Date: 12/01/2022 09:45 Account: [id number] Inpatient Adult Discharge Instructions We would like to thank you for allowing us to assist you with your healthcare needs. The following includes patient education materials and information regarding your injury/illness. Our entire staffstrives to provide an excellent experience for our patients and their families. PLEASE ENSURE YOU FOLLOW-UP PER THE INSTRUCTIONS BELOW! ?? YOUR OPINION IS IMPORTANT TO US! Please complete the survey you may receive by mail or email. Your feedback will be used to make improvements to the healthcare experiences of our patients and their families. Surveys are administered by [employer] ?? If further treatment with your primary care physician or another doctor is recommended, it is important for you to keep the appointment. Call your primary care physician or return to the Emergency Department immediately if your condition worsens, fails to improve, or new symptoms develop. If you need to find a doctor, you can call [facility] for a referral at [phone] or toll free at [phone] or log in to [email or web address] ?? You can view and manage your care through the patient portal or by using a health care geeta of your choosing. [employer] is a website that allows you to securely view your medical information including your hospital discharge summary, office visit summaries, medications and follow-up visits. You can also request appointments, renew medications, and request access to your medical information using a health care geeta of your choosing, or just ask a question. You can enroll at [email or web address] or register during your next office visit. You have been discharged from [facility], Patient Care Unit: [facility]. If you have any questions regarding these instructions after you leave, please call us and we will be happy to assist you. [facility] Your Care Team Attending Physician Volodymyr MEIER [OB], Maria E Morales; Lane Castro MD Consulting Providers Susan MEIER, Remigio; Shefali Whalen MD Discharging Providers Tasha Salgado MD Reason for Admission Induction of labor Your Diagnosis Anemia in Attention deficit disorder with hyperactivity History of section Encounter for induction of labor History of hemorrhage Status post section Anemia Tests Performed Below is a partial list of the tests performed during your hospitalization. You may have had other tests and procedures not included in this list. Please discuss all test results with your provider. CBC Type and Screen Primary Care Provider Sean Sparrow MD Advance Directive Health Care Proxy on File Yes - Health Care Proxy Patient has a Designated Caregiver: No Discharge Vitals Temperature: 98.3 DegF Height: 165 cm Pulse Rate: 75 bpm Weight: 83 kg Respiratory Rate: 18 br/min Body Mass Index:??30.49 kg/m2??Critical Respiratory Rate: 18 br/min Body surface area: 1.95 Respiratory Rate: 18 br/min ?? Systolic Blood Pressure: 113 mm Hg ?? Diastolic Blood Pressure: 65 mm Hg ?? Oxygen Saturation: 97 % ?? Studies Pending All tests and labs ordered during this hospital stay have been completed unless listed below. Please discuss all pending results with your provider listed above in these instructions. ?? COVID-19 (2019 Novel Coronavirus) PCR What to do next Instructions From Your Doctor Discharge Orders Scheduled Follow-Up Appointments Wednesday 9:00 AM EDT ?? With: Viridiana Barreto CNM Where: [facility] - [facility] [address] [place] [address]- You Need to Schedule the Following Appointments Follow Up with??Call OB-PUBLIC HEALTH NURSE to schedule follow up visit When?? Discharge Medications ALESHA CRAWFORD :2000 Visit Date:11/26/2022 Medications: Please continue your medications until treatment is completed or stopped by your provider. Medications not listed below should be discontinued. Discuss any questions related to medications with your provider. What How Much When Instructions Next Dose New Acetaminophen (acetaminophen 325 mg oral tablet) 3 tab(s) Oral Every 8 hours as needed for Pain , Moderate Pickup at [facility]/pharmacy #2070 2:30pm New Ibuprofen (ibuprofen 800 mg oral tablet) 1 tab(s) Oral Every 8 hours (4-6), may give 400mg per patient preference and re-dose with 400mg within 8 hours, if needed. ?? Patient should only receive a total of 800mg of Ibuprofen every 8 hours. ?? Pickup at [facility]/pharmacy #2070 6:30pm New Oxycodone (oxyCODONE 5 mg oral tablet) 1 tab(s) Oral Every 3 hours as needed for Pain , Severe (7-10) ?? Pickup at [facility]/pharmacy #2070 anytime as needed New Polyethylene Glycol 3350 (MiraLax oral powder for reconstitution) 17 gram Oral Daily Refills: 1 dissolve in water before taking ?? Pickup at [facility]/pharmacy #2070 daily New Senna (senna - oral tablet) 2 tab(s) Oral Daily at Bedtime as needed for for constipation Pickup at [facility]/pharmacy #2070 New Simethicone (simethicone 80 mg oral tablet, chewable) 80 Milligram Chew 3 times a day as needed for Gas Pickup at [facility]/pharmacy #2070 as needed Unchanged Ferrous Sulfate (ferrous sulfate 325 mg oral enteric coated tablet) 1 tab(s) Oral Daily daily Unchanged Multivitamin, ( Multivitamins with Folic Acid 1.4 mg oral tablet, chewable) 1 tab(s) Chew Daily daily Pharmacy Information [facility]/pharmacy #2070: [address] [place] [id number] [phone] Test Results Below is a partial list of the most recent Laboratory test results done prior to this discharge. You may have had other tests and procedures not included in this list. Please discuss all test resultswith your provider. RBC Available - RE (11/26/2022) RBC Unit ID - [id number] (11/26/2022) CBC (11/30/2022) ???WBC - 8.4 k/mm3???RBC - 3.58 m/mm3???Hgb - 7.8 Gm/dL???Hct - 26.1 %???MCV - 72.9 femtoliters???MCH - 21.8 pg???MCHC - 29.9 g/dL???Platelet Count - 180 k/mm3???RDW-SD - 42.7 femtoliters???MPV - 10.6 femtoliters???Nucleated RBC (Automated) - 0.0 #/100 WBC'S???Abs. NRBC - 0.0 k/mm3 Type and Screen (11/26/2022) ???Blood Type - B Positive???Antibody Screen - Negative Allergies (NKA means No Known Allergies) NKA Problems Active Problems??(4) ADHD - Attention deficit disorder with hyperactivity?? History of section?? Obese class I? Education Materials Below is the list of Educational Leaflet Providered with your Discharge Instructions. OB PP [facility]- Discharge Instructions?? OB PP Warning Signs?? Valuables and Belongings I fully understand and agree that [facility] accepts no responsibility for all my personal property including clothing, toilet articles, radios, jewelry, dentures, hearing aids, rings, money, or any other property that is in my possession or is brought to me after admission. I understand certain valuables may be placed in a hospital safe for a short period of time. I understand that the hospital is not liable for loss or damage due to accident, fire, or other natural occurrence while said property is in the safe. I accept full responsibility for any personal property that I keep with me, and will not hold the hospital responsible in case of loss or disappearance. I acknowledge that i have been encouraged to send valuables and belongings home. ?? Date for Pt to Sign Valuables/Belongings: 11/27/22 20:38:00 ?? Other Discharge Information ? Pulmonary Rehab Status?? Pulmonary Rehab Discharge Status?? Respiratory Rate: 18 br/min Respiratory Rate: 18 br/min Respiratory Rate: 18 br/min ? Common Emergency Awareness Tips IS IT A STROKE? Act FAST and Check for these signs: FACE Does the face look uneven? ARM Does one arm drift down? SPEECH Does their speech sound strange? TIME Call at any sign of stroke ?? Heart Attack Signs Chest discomfort: Most heart attacks involve discomfort in the center of the chest and lasts more than a few minutes, or goes away and comes back. It can feel like uncomfortable pressure, squeezing, fullness or pain. Discomfort in upper body: Symptoms can include pain or discomfort in one or both arms, back, neck, jaw or stomach. Shortness of breath: With or without discomfort. Other signs: Breaking out in a cold sweat, nausea, or lightheaded. Remember, MINUTES DO MATTER. If you experience any of these heart attack warning signs, call to get immediate medical attention! ?? Smoking can increase your chances of developing chronic health problems and can cause harmful effects to other family members in your house. If you smoke, you are strongly encouraged to quit. Please call [facility] at [phone] or [phone] ([phone]) or log in to [email or web address] for referrals to smoking cessation programs. ?? The National Suicide Prevention Hotline is available 24/7 if you or someone you know needs to find a reason to keep living. By calling 1-150-678-ounu (9600) you'll be connected to a skilled, trained counselor at a crisis center in your area. INPATIENT DISCHARGE INSTRUCTIONS SIGNATURE PAGE ALESHA CRAWFORD Location:[facility] Registration Date and Time:11/26/2022 20:44 EDT Primary Care Physician: Kyara MEIER, Sean, I ALESHA CRAWFORD, have received the above patient education materials/instructions and have verbalized understanding. If ambulance or transport services are being used I further acknowledge beinggiven a choice of service. ?? If you need to contact me, please call me at this number: . Patient/Marketing Content Coordinator Name: Patient/Marketing Content Coordinator Signature: Relationship to Patient: Witness Name/Signature: Date: * Dolores Bowles: PERFORM Event Display: Patient Education/Instruction Authored Date: [id number] Inpatient Adult Discharge Instructions [address] [address] Name: ALESHA CRAWFORD : 2000 Visit: 11/26/2022 20:44:00 Current Date: 12/01/2022 09:45 Account: [id number] Inpatient Adult Discharge Instructions We would like to thank you for allowing us to assist you with your healthcare needs. The following includes patient education materials and information regarding your injury/illness. Our entire staffstrives to provide an excellent experience for our patients and their families. PLEASE ENSURE YOU FOLLOW-UP PER THE INSTRUCTIONS BELOW! ?? YOUR OPINION IS IMPORTANT TO US! Please complete the survey you may receive by mail or email. Your feedback will be used to make improvements to the healthcare experiences of our patients and their families. Surveys are administered by [employer] ?? If further treatment with your primary care physician or another doctor is recommended, it is important for you to keep the appointment. Call your primary care physician or return to the Emergency Department immediately if your condition worsens, fails to improve, or new symptoms develop. If you need to find a doctor, you can call [facility] [employer] for a referral at [phone] or toll free at [phone] ([phone]) or log in to [email or web address].. ?? You can view and manage your care through the patient portal or by using a health care geeta of your choosing. [employer] is a website that allows you to securely view your medical information including your hospital discharge summary, office visit summaries, medications and follow-up visits. You can also request appointments, renew medications, and request access to your medical information using a health care geeta of your choosing, or just ask a question. You can enroll at [email or web address] or register during your next office visit. You have been discharged from [facility], Patient Care Unit: WIN2. If you have any questions regarding these instructions after you leave, please call us and we will be happy to assist you. [facility] Your Care Team Attending Physician Volodymyr MEIER [OB], Maria E Castro MD, Lane Consulting Providers Susan MEIER, Remigio; Koby MEIER, Shefali Morales Discharging Providers Damian MEIER, Tasha Francisco Reason for Admission Induction of labor Your Diagnosis Anemia in Attention deficit disorder with hyperactivity History of section Encounter for induction of labor History of hemorrhage Status post section Anemia Tests Performed Below is a partial list of the tests performed during your hospitalization. You may have had other tests and procedures not included in this list. Please discuss all test results with your provider. CBC Type and Screen Primary Care Provider Kyara MEIER, Sean Advance Directive Health Care Proxy on File Yes - Health Care Proxy Patient has a Designated Caregiver: No Discharge Vitals Temperature: 98.3 DegF Height: 165 cm Pulse Rate: 75 bpm Weight: 83 kg Respiratory Rate: 18 br/min Body Mass Index:??30.49 kg/m2??Critical Respiratory Rate: 18 br/min Body surface area: 1.95 Respiratory Rate: 18 br/min ?? Systolic Blood Pressure: 113 mm Hg ?? Diastolic Blood Pressure: 65 mm Hg ?? Oxygen Saturation: 97 % ?? Studies Pending All tests and labs ordered during this hospital stay have been completed unless listed below. Please discuss all pending results with your provider listed above in these instructions. ?? COVID-19 (2019 Novel Coronavirus) PCR What to do next Instructions From Your Doctor Discharge Orders Scheduled Follow-Up Appointments Wednesday 9:00 AM EDT ?? With: Viridiana Barreto CNM Where: [facility] - [facility]in [facility] [address] [place] [address]- You Need to Schedule the Following Appointments Follow Up with??Call OB-PUBLIC HEALTH NURSE to schedule follow up visit When?? Discharge Medications ERNESTOCRISY :2000 Visit Date:11/26/2022 Medications: Please continue your medications until treatment is completed or stopped by your provider. Medications not listed below should be discontinued. Discuss any questions related to medications with your provider. What How Much When Instructions Next Dose New Acetaminophen (acetaminophen 325 mg oral tablet) 3 tab(s) Oral Every 8 hours as needed for Pain , Moderate Pickup at [facility]/pharmacy #8693 New Ibuprofen (ibuprofen 800 mg oral tablet) 1 tab(s) Oral Every 8 hours (4-6), may give 400mg per patient preference and re-dose with 400mg within 8 hours, if needed. ?? Patient should only receive a total of 800mg of Ibuprofen every 8 hours. ?? [facility] New Oxycodone (oxyCODONE 5 mg oral tablet) 1 tab(s) Oral Every 3 hours as needed for Pain , Severe (7-10) ?? [facility] New Polyethylene Glycol 3350 (MiraLax oral powder for reconstitution) 17 gram Oral Daily Refills: 1 dissolve in water before taking ?? [facility] New Senna (senna - oral tablet) 2 tab(s) Oral Daily at Bedtime as needed for for constipation [facility] New Simethicone (simethicone 80 mg oral tablet, chewable) 80 Milligram Chew 3 times a day as needed for Gas [facility] Unchanged Ferrous Sulfate (ferrous sulfate 325 mg oral enteric coated tablet) 1 tab(s) Oral Daily Unchanged Multivitamin, ( Multivitamins with Folic Acid 1.4 mg oral tablet, chewable) 1 tab(s) Chew Daily Pharmacy Information [facility] #2070: [address], [place] [id number] [phone] Test Results Below is a partial list of the most recent Laboratory test results done prior to this discharge. You may have had other tests and procedures not included in this list. Please discuss all test resultswith your provider. RBC Available - RE (11/26/2022) RBC Unit ID - [id number] (11/26/2022) CBC (11/30/2022) ???WBC - 8.4 k/mm3???RBC - 3.58 m/mm3???Hgb - 7.8 Gm/dL???Hct - 26.1 %???MCV - 72.9 femtoliters???MCH - 21.8 pg???MCHC - 29.9 g/dL???Platelet Count - 180 k/mm3???RDW-SD - 42.7 femtoliters???MPV - 10.6 femtoliters???Nucleated RBC (Automated) - 0.0 #/100 WBC'S???Abs. NRBC - 0.0 k/mm3 Type and Screen (11/26/2022) ???Blood Type - B Positive???Antibody Screen - Negative Allergies (NKA means No Known Allergies) NKA Problems Active Problems??(4) ADHD - Attention deficit disorder with hyperactivity?? History of section?? Obese class I? Education Materials Below is the list of Educational Leaflet Providered with your Discharge Instructions. OB PP [facility]- Discharge Instructions?? OB PP Warning Signs?? Valuables and Belongings I fully understand and agree that [facility] accepts no responsibility for all my personal property including clothing, toilet articles, radios, jewelry, dentures, hearing aids, rings, money, or any other property that is in my possession or is brought to me after admission. I understand certain valuables may be placed in a hospital safe for a short period of time. I understand that the hospital is not liable for loss or damage due to accident, fire, or other natural occurrence while said property is in the safe. I accept full responsibility for any personal property that I keep with me, and will not hold the hospital responsible in case of loss or disappearance. I acknowledge that i have been encouraged to send valuables and belongings home. ?? Date for Pt to Sign Valuables/Belongings: 11/27/22 20:38:00 ?? Other Discharge Information ? Pulmonary Rehab Status?? Pulmonary Rehab Discharge Status?? Respiratory Rate: 18 br/min Respiratory Rate: 18 br/min Respiratory Rate: 18 br/min ? Common Emergency Awareness Tips IS IT A STROKE? Act FAST and Check for these signs: FACE Does the face look uneven? ARM Does one arm drift down? SPEECH Does their speech sound strange? TIME Call at any sign of stroke ?? Heart Attack Signs Chest discomfort: Most heart attacks involve discomfort in the center of the chest and lasts more than a few minutes, or goes away and comes back. It can feel like uncomfortable pressure, squeezing, fullness or pain. Discomfort in upper body: Symptoms can include pain or discomfort in one or both arms, back, neck, jaw or stomach. Shortness of breath: With or without discomfort. Other signs: Breaking out in a cold sweat, nausea, or lightheaded. Remember, MINUTES DO MATTER. If you experience any of these heart attack warning signs, call to get immediate medical attention! ?? Smoking can increase your chances of developing chronic health problems and can cause harmful effects to other family members in your house. If you smoke, you are strongly encouraged to quit. Please call [facility] [employer] [facility] at [phone] or [phone] ([phone]) or log in to [email or web address] for referrals to smoking cessation programs. ?? The National Suicide Prevention Hotline is available 22/03 if you or someone you know needs to find a reason to keep living. By calling 6-185-996-[employer] (8096) you'll be connected to a skilled, trained counselor at a crisis center in your area. INPATIENT DISCHARGE INSTRUCTIONS SIGNATURE ALESHA AMEZCUA Location:[facility] Registration Date and Time:11/26/2022 20:44 EDT Primary Care Physician: Kyara MEIER, Sean, I ERNESTO ALESHA, have received the above patient education materials/instructions and have verbalized understanding. If ambulance or transport services are being used I further acknowledge beinggiven a choice of service. ?? If you need to contact me, please call me at this number: . Patient/Marketing Content Coordinator Name: Patient/Marketing Content Coordinator Signature: Relationship to Patient: Witness Name/Signature: Date: * Dolores Bowles: PERFORM, SIGN, VERIFY Event Display: Patient Education Handout Authored Date: * Dolores Bowles: PERFORM Event Display: Patient Education Leaflets Authored Date: OB PP [facility]- Discharge Instructions ?? 209 Discharge Care Instructions for the New Mom and Baby Please take a few moments to read through these helpful instructions before you leave the hospital.?? Your nurse will be glad to answer any questions you may have.?? You can also find this and more information throughout the purple Becoming a Family booklet, [facility]???s New Beginnings Guide and the Consultation Services Guide given to you after the of your baby.?? You may also phone our nurses stations if you have further questions.?? [facility]:?? First Floor ([phone]), Second Floor ([phone]).?? Please call your provider if you have any questions or concerns?? before your next appointment. For ongoing support please ???Like?? us on our Facebook page ???[facility]???s New Beginnings?? andsign up for our email newsletter at [email or web address].?? News and information will besent to you until your baby???s third birthday. Instructions for the New Mother Activity: For the next 2 weeks at home ??? no heavy lifting, avoid unnecessary stair climbing, and no driving(especially if you are taking medicine that may make you sleepy or feel that you are sleep deprived).?? For the next 4-6 weeks - no tampons, no douches, no sexual intercourse. Use your mina bottle to rinse your perineum until your vaginal flow stops.?? If you have stitches in your bottom, they generally dissolve within 7-10 days.?? Apply Tucks/witch logan pads until your soreness subsides.?? Use your bathroom at home every 3 to 4 hours, rinse, and change your pads. Warm showers feel great on achy muscles, sore backs and sore bottoms. Exercise: Walking is the best form of exercise.?? Wait until your follow up appointment with your provider in4-6 weeks before engaging in more strenuous activity. Diet: Drink plenty of fluids to avoid constipation and to help support your recovery. Eat plenty of iron rich foods such as red meat, iron fortified cereals like Total and Cream of Wheat, raisins, prunes, greens and spinach.?? These will help to build your blood count back up as all women lose some blood after delivery.?? Also add foods rich in Vitamin C such as strawberries, oranges, papayas, kale and castanon peppers. Continue to take your vitamins if you are .?? If you are not follow the instructions of your provider.?? If you were prescribed iron supplements such as ferrous sulfate, it is important to continue these until your doctor or production control specialist tells you to stop. Breast Care for Nursing Mothers: Wear a comfortable fitting, supportive nursing bra.?? An underwire bra is not recommended. Express drops of breast milk and rub over your nipples and areola (brown area) before and after each feeding to protect and heal sensitive skin and then air dry your nipples.?? If you are experiencing any soreness, you may purchase nipple cream such as TenderCare or Lansinoh.?? Use it in the following manner:?? finish your feeding or pumping session, self-express colostrum onto your nipple and air dry, apply the nipple cream to the nipple and areola.?? Use only small amounts for best results. If you are having difficulty getting the baby to latch onto the breast due to swelling of the areola, try applying pressure with your fingers for a couple of minutes above and below your nipple and walk your fingers outward softening the area and pushing the swelling away.?? This technique is knownas reverse pressure softening.?? For demonstrations of this and other techniques such as the [place] Hand Expression technique, please refer to the resources section of the Consultation Services Guide that you received from services. When your milk first comes in, usually within 3 to 5 days after delivery, you may experience engorgement.?? Your breasts may become swollen and very tender.?? Cold compresses work great to help with discomfort and reduce swelling. It will get better in a couple of days.?? Continue to nurse your baby frequently.?? Call [facility]???s Consultation Service at [phone], press 1 to schedule an outpatient appointment or press 3 and a sr risk management consultant will return your call that day or the next if you call after 3pm. Breast Care for Bottle Feeding Mothers: Engorgement may occur within the first week after delivery.?? Your breasts may become hard and verytender.?? A cool compress of cleaned raw green cabbage leaves applied to the breast and changed as leaves wilt has been proven helpful for many women.?? Ice packs or frozen bags of peas also work nicely to ease the discomfort.?? The soreness will only last a couple of days. Keep your back turned to the water while showering to decrease breast stimulation. Wear a snug fitting bra such as a sports bra. ?? Control: ?? You received a Depo Provera injection on __12/01/22 .?? This control method is effective as long as you repeat it every 3 months.?? Schedule your next dose before_03/02/23?? Pain Management:?? Cramping after is common and increases in strength with each baby you have.?? If you experience painful cramps, and have no allergies to acetaminophen (Tylenol) or ibuprofen (Motrin), you may continue to take these medications as you did in the hospital.?? Ibuprofen is also helpful with back aches following epidurals, perineal pain following a vaginal delivery, and moderate incisional pain after a section or a tubal ligation.?? If you experience gas distention, especially after surgery, you may take an over the counter medication called simethicone.?? Take these chewable tablets 4 times a day as needed and directed on the package.?? Keep moving.?? Walking or rocking in a chair, will help to move the gas along.?? Surekha tea made with heated surekha dany (instead of water) and a tea bag, stirred to dissolve carbonation (bubbles) is a helpful drink to soothe a gassy stomach. Warning Signs of a Problem to Notify Your Doctor or Director [employer] Learning of: Heavy vaginal bleeding ??? which is soaking a pad every hour with bright red blood. Passing blood clots the size of an egg or larger. An incision that is not healing. A temperature greater than or equal to 100.4 especially if accompanied by any of the following symptoms ??? painful, frequent urination; extreme back or flank pain; lower belly pain with a foul smellto your vaginal flow; a red hard hot area on your breast.?? Severe headache that does not go away after taking acetaminophen or ibuprofen.?? A headache that changes your vision, including seeing spots or blurring. Right sided upper abdominal pain along the rib cage area. Pain in your legs that is warm and tender to the touch. depression signs may include ??? loss of interest in your baby, weepiness, difficulty focusing, weight loss with no appetite, exhaustion, feeling overwhelmed or anxious, feelings of despair, or thoughts of harming yourself or your baby.?? These symptoms are important and should be discussed with your doctor or production control specialist. depression may develop over a period of time and needs prompt medical attention.?? Do not suffer in silence.?? In both the Becoming a Family booklet and the[facility] Guide there is a screening tool used to identify women at risk, called the [place] Scale which you have taken in the office prior to delivery and again during your hospital s edilberto.?? Three to four weeks after your delivery, and before your check with your provider, take this test and share your results with your provider.?? Be sure to mention any score of 10 or more.?? Many women, and even some partners, may experience the ???baby blues?? .?? This is a state of feeling overwhelmed and weepy.?? Discomfort from childbirth, hormonal changes, exhaustion, changes to your body and lifestyle are a few of the things that contribute to the highs and lows new parents go through.?? Don???t be afraid to ask your partner or family and friends for some help at home so you can get some rest and a few minutes to yourself.?? The blues will quickly pass. Personal Safety: Every person has the right to feel safe at home and live free from physical or emotional harm.?? Ifyou have suffered mental or physical abuse at home, you are not alone.?? There is help.?? Please call HOTLINE or the [employer] Program at [phone]. CARE Bathing: Give your baby a sponge bath until the cord falls off in about 1-3 weeks.?? It is not necessary to bathe your baby every day, usually every few days is sufficient. ??Keep the cord area dry.?? Some baby girls will have a small bloody vaginal discharge. No need to worry as this is normal. It is not necessary to use lotions on the baby???s skin.?? Powders and oils are not recommended.?? Babies often get rash on their skin which comes and goes quickly and does not require any special care.?? Diaper rash can be treated with a zinc oxide preparation such as Desitin or Balmex diaper cream. ?? Diapers: After the 1st??few days, the baby will start wetting more often.?? A breast fed baby will wet about6-8 times a day once mom???s milk comes in ??? usually day 4 or 5.?? This is a good sign that the baby is getting plenty to eat.?? You may notice an orangey-pink stain in the diaper which is normal for the first few days. The baby???s first bowel movements are sticky, black and tarry.?? As the baby starts to feed more often over the next couple of days, the stool will change to a seedy yellowish green color and eventually a loose mustard like stool for a breast fed baby and a more formed yellow stool for a bottle fed baby. your Baby: ??Congratulations on deciding to breastfeed your baby! You are providing your baby with the most nourishing food source on the planet, your breast milk.?? Cues such as rooting, suckling, licking and fussing may be telling you that your baby is ready to eat ??? and it is time to offer your breasts. The first weeks following the are a time for you and your baby to learn.?? The baby may be sleepy the first day after with 8 to 12 attempts ??? including 2 to 4 good feedings.?? Over the next couple of days the baby will become more wakeful, feed 8 to 12 times a day and have more wet and poopy diapers.?? Cluster feeding, especially during the evening/night time, is normal. ?? Listen for swallowing sounds and watch the baby as they become more relaxed at the breast ??? both good signs that the baby is getting a good amount of milk.?? Refrain from smoking or eating edible marijuana while you are . Even though marijuana is legal in the state of [place],??it is harmful for your baby.??It stays in breast milk for along period of time and THC can be found in the baby's urine for up to 3 weeks. Second hand smoke can also increase the risk??of Sudden Syndrome / SIDS. ?? Nursing is wonderful but many moms and babies have some degree of difficulty with at first. Don???t give up!?? There are many resources available to help you overcome these temporary problems. Your product lead wants to hear from you if you are having difficulties and can offermany helpful suggestions.?? Some offices have consultants on staff. [facility]???s Consultation Service is available 7 days a week, 8am to 3pm at [phone].?? Press 1 to schedule an outpatient appointment.?? Press 3 to leave a message for the sec reporting consultant, a sr risk management consultant will return your call that day or the next if you call after 3pm. Support Groups ??? [facility] offers free gatherings for moms and babies weekly.?? All groups meet at the [facility] Women???s 2nd??floor, typically in the [facility] Conference Room, Wednesday???s 1 to 2 pm.?? [employer] is a worldwide organization with local community support, mother to mother support.?? Information can be found at https://www.lllusa.org Formula Feeding your Baby: Formula fed babies should eat every 3 to 4 hours.?? Look for cues that your baby is ready ??? such as rooting and sucking, licking and fussing.?? At the baby???s stomach is small and may take 10-15ml of formula.?? Over the next few days the baby will become more wakeful and feed more frequently, gradually increasing the amounts of formula taken at a feeding.?? Your product lead will provideinstructions on how to increase the amount.?? Refer to packaging for formula preparation directions, depending on the type of formula you purchase ??? powder, concentrate or ready to feed. Infant Safety: ALWAYS REMEMBER - BACK TO SLEEP! Babies sleep safest on their backs.?? Every sleep.?? Every time.?? Every nap. Babies need a firm sleep surface with a tight fitting bottom sheet.?? NO loose bedding.?? NO pillows.?? NO bumper pads or rolls.?? NO heavy or fluffy blankets. NO stuffed toys. It is not safe for your baby to sleep in your bed, in a chair, or on a sofa.?? Your baby should notsleep with you or anyone else. Car Seat: Always place your baby in a rear facing car seat in the backseat of the car. Car seat inserts that come with the car seat can be used as they are crash tested with the seat.?? You should not buy additional inserts.?? Dress the baby in a weather appropriate outfit.?? Avoid bulky clothing such as snowsuits or jackets as the baby may squirm in the seat, loosening the shoulder straps and come out of the top of the harness if you need to brake hard or are in an accident.?? Once the baby issecured in the seat you can cover your little one with a blanket if needed.?? If your baby was bornprematurely, follow the directions given to you.?? If you have not already done so, check to make sure your car seat is installed correctly. Check with your local Fire and Police Department to see if they offer car seat inspections at a location close to you. Babies Can Move: ?? Never leave your baby unattended on any surface, raised or flat, or while bathing.?? They can squirm, fall or hurt themselves.?? Always fasten the safety belt when using an infantseat or swing ??? as they may lean forward and fall. Good Handwashing is the number one way you can protect the baby from too?? many germs and prevent infection.?? When family and friends visit ask that they wash their hands before holding your baby.??Also avoid crowds the first month of your baby???s life to protect from colds and flus. Shaking a baby out of frustration can cause severe and lasting damage, even to a baby.?? If you feel you are becoming angry or overwhelmed, place the baby in a safe place and walk away.?? Call a friend or family member.?? If they are not able to offer immediate help call the Parental Stress Hotline at?? , an anonymous 22/03 source of help. Warning Signs to notify your product lead of: Most babies develop a small amount of jaundice (a yellowish skin color) in the face and upper chest, by about 3 days of age.?? If the yellow color extends below the baby???s belly or if the baby is very sleepy and not feeding well, call your product lead. A rectal temperature of 100.4F as it could be a sign of infection. Projectile vomiting that continues with each feeding could indicate reflux or a problem with the formula. Extreme sleepiness or very fussy. Cold symptoms with nasal stuffiness, especially if the baby is having difficulty feeding. Constipation with hard stools. Blue or dusky color, call 911. ? This information has been modified by your health care provider with permission from the publisher. ?? * Dolores Bowles: PERFORM Event Display: Patient Education Leaflets Authored Date: [id number] OB PP Warning Signs ?? 222 Warning Signs Mom - Warning Signs of Problems to Notify Your Doctor or Director E Learning of: ??? Heavy vaginal bleeding (soaking a pad every hour with bright red blood). ??? Large clots the size of an orange or so. ??? A temperature greater than or equal to 100.6F especially if accompanied by painful, frequent urination, lower abdominal pain with a foul smell to vaginal flow, a red hard hot area on breast that could indicate a breast infection. ??? Severe headaches, visual changes such as seeing spots or blurred vision. ??? Extreme back pain. ??? Pain in the back of your legs that is tender to the touch. ??? Breathing difficulties. ??? Signs of depression include: loss of interest in your baby, weepiness, weight loss, exhaustion, feeling of being overwhelmed or anxious. T his is a chemical imbalance that needs medical treatment. Many women do however experience baby blues which is a temporary feeling of weepiness or anxiety which goes away with some good old T.L.C and sleep. Having a baby is a wonderful experience but sleep deprivation, hormone changes and a life style change, can make the best of us have an off day. If these feelings last for a prolonged lengthof time, or begin to affect your appetite, or your ability to sleep, call your doctor or production control specialist. Wheeler - Warning Signs to notify your product lead of: ??? Most babies develop a small amount of jaundice (a yellowish skin color) in the face and upper chest, by about 3 days of age. If the yellow color extends below the baby's belly or if the baby is very sleepy and not feeding well, call your product lead. ??? A rectal temperature of 100.4F could be a sign of infection. ??? Projectile vomiting that continues with each feeding could indicate reflux or a problem with the formula. ??? Extreme sleepiness or very fussy. ??? Cold symptoms with nasal stuffiness, especially if the baby is having difficulty feeding. ??? Blue or dusky skin color. ??? Constipation with hard stools. ?? * Nik Kay: PERFORM Event Display: Care Team Progress Note Authored Date: [id number] Patient: ??ALESHA CRAWFORD ? Age:??22 Years?Sex:??Female?:??2000?? Subjective Follow up visit, baby is now off POCs??Mother states she will try when she gets home.?? Assessment/Plan Reviewed paced bottle feeding and stomach size.?? Reviewed feeding cues and feeding behaviors.?? Encouraged to call if she would like support outpatient.?? OB Summary : 2 . Baby A - Weight: 4.09 kg Baby A - Date, Time of : 11/28/22 01:00:00 Baby A - Gender: Male EGA at Documented Date, Time: 41W 2D Weight at Delivery Baby A - Delivery Type: , low transverse OB History History?(1,0,0,1)? # 1 ?Baby 1 ?Outcome Date:??07/07/2020?Outcome or Result:??, low transverse ?Gest Age:??40 weeks 4 days ? Outcome:??Live ? Sex:??Male?Wt:?3520 g ? Complications:??Meconium stained fluid Active Problem List Active Problem List ADHD - Attention deficit disorder with hyperactivity: (Medical) last treated around age 13 History of section: (Medical) Obese class I: (Medical) : (Obstetric) (01/28/22) Home Medications Ferrous Sulfate: 325 mg = 1 tablet, By Mouth, Daily Multivitamin, : 1 tablet, Chew, Daily Medications Medications (12) Active SCHEDULED: (2) Docusate Sodium 100 mg Capsule (Docusate Sodium Capsule) ??100 mg 1 capsule, By Mouth, 2 times a day Ibuprofen 800 mg Tablet (Ibuprofen Tablet) ??800 mg, By Mouth, Every 8 hours CONTINUOUS: (3) Lactated Ringers (1000 mL) Cont IV 1,000 mL (Lactated Ringers 1,000 mL) ??1,000 mL, IV Infusion, 125 mL/hr Lactated Ringers (1000 mL) Cont IV 1,000 mL (Lactated Ringers 1,000 mL) ??1,000 mL, Intrauterine, 125 mL/hr Lactated Ringers (1000 mL) Cont IV 1,000 mL (Lactated Ringers 1,000 mL) ??1,000 mL, IV Infusion, 125 mL/hr PRN: (7) Acetaminophen 325 mg Tablet (acetaminophen 325 mg oral tablet) ??650 mg, By Mouth, Every 4 hours FENTanyl 50 mcg/mL Inj (2 mL) (FENTanyl Inj) ??25 mcg 0.5 mL, IV Push, Every 5 minutes Metoclopramide 5 mg/mL Inj (2 mL) (Metoclopramide Inj) ??10 mg, IV Push, Every 6 hours nalOXONE ??400mcg/mL Inj (nalOXONE Inj) ??0.1 mg 0.25 mL, IV Push Slowly, Every 15 minutes OxyCODONE 5 mg IR Tablet (OxyCODONE IR Tablet) ??5 mg, By Mouth, Every 3 hours OxyCODONE 5 mg IR Tablet (OxyCODONE IR Tablet) ??10 mg, By Mouth, Once Simethicone 80 mg Chewable Tablet (Simethicone Tablet) ??80 mg, Chew, 3 times a day * Nik Kay: PERFORM Event Display: Care Team Progress Note Authored Date: [id number] Patient: ??ALESHA CRAWFORD ? Age:??22 Years?Sex:??Female?:??2000?? Subjective Follow up consult for baby on POCs.?? Baby is being weaned from 24cal to 20cal formula while continuing to breastfeed.?? Mother states baby has been frustrated at the breast, I don;t have much milk. Assessment/Plan Upon entering the room baby was sucking vigorously on the pacifier and showing feeding cues.?? Mother states feeding needed to wait until after the glucose screening.?? RN took baby to nursery for glucose screening.?? Baby returned crying and fussy.?? Attempted to latch in cross cradle but baby very fussy and frustrated.?? Mother able to hand express drops of colostrum but baby continued to cry.?? At this time mother chose to give some formula.? will return for next feeding and bring a pump for home use. OB Summary : 2 . Baby A - Weight: 4.09 kg Baby A - Date, Time of : 11/28/22 01:00:00 Baby A - Gender: Male EGA at Documented Date, Time: 41W 2D Weight at Delivery Baby A - Delivery Type: , low transverse OB History History?(1,0,0,1)? # 1 ?Baby 1 ?Outcome Date:??07/07/2020?Outcome or Result:??, low transverse ?Gest Age:??40 weeks 4 days ? Outcome:??Live ? Sex:??Male?Wt:?3520 g ? Complications:??Meconium stained fluid Active Problem List Active Problem List ADHD - Attention deficit disorder with hyperactivity: (Medical) last treated around age 13 History of section: (Medical) Obese class I: (Medical) : (Obstetric) (01/28/22) Home Medications Ferrous Sulfate: 325 mg = 1 tablet, By Mouth, Daily Multivitamin, : 1 tablet, Chew, Daily Medications Medications (12) Active SCHEDULED: (2) Docusate Sodium 100 mg Capsule (Docusate Sodium Capsule) ??100 mg 1 capsule, By Mouth, 2 times a day Ibuprofen 800 mg Tablet (Ibuprofen Tablet) ??800 mg, By Mouth, Every 8 hours CONTINUOUS: (3) Lactated Ringers (1000 mL) Cont IV 1,000 mL (Lactated Ringers 1,000 mL) ??1,000 mL, IV Infusion, 125 mL/hr Lactated Ringers (1000 mL) Cont IV 1,000 mL (Lactated Ringers 1,000 mL) ??1,000 mL, Intrauterine, 125 mL/hr Lactated Ringers (1000 mL) Cont IV 1,000 mL (Lactated Ringers 1,000 mL) ??1,000 mL, IV Infusion, 125 mL/hr PRN: (7) Acetaminophen 325 mg Tablet (acetaminophen 325 mg oral tablet) ??650 mg, By Mouth, Every 4 hours FENTanyl 50 mcg/mL Inj (2 mL) (FENTanyl Inj) ??25 mcg 0.5 mL, IV Push, Every 5 minutes Metoclopramide 5 mg/mL Inj (2 mL) (Metoclopramide Inj) ??10 mg, IV Push, Every 6 hours nalOXONE ??400mcg/mL Inj (nalOXONE Inj) ??0.1 mg 0.25 mL, IV Push Slowly, Every 15 minutes OxyCODONE 5 mg IR Tablet (OxyCODONE IR Tablet) ??5 mg, By Mouth, Every 3 hours OxyCODONE 5 mg IR Tablet (OxyCODONE IR Tablet) ??10 mg, By Mouth, Once Simethicone 80 mg Chewable Tablet (Simethicone Tablet) ??80 mg, Chew, 3 times a day * Nik Kay: PERFORM Event Display: Care Team Progress Note Authored Date: [id number] Patient: ??ALESHA CRAWFORD ? Age:??22 Years?Sex:??Female?:??2000?? Subjective Delivery day consult for 12 hour old baby currently on POC for LGA.?? Mother states she briefly breastfed her son, now 1yrs old.?? Assessment/Plan Basic education discussed with mother/family including:? Positioning infant for optimal feeding Asymmetric latch technique Frequent breast stimulation for initiation and maintenance of milk supply _Coming to full milk volume in first 14 days Engorgement prevention and management Hand expression When to use a breast pump Information on how to obtain a breast pump--has a pump ?[place] Expectations ?1-2 feeds/1??void?in first 24 hours, ? 8-10 feeds/ 4 voids/2-3 stool by day 4 when milk arrives, ? Feeds are not routine but balance out over 24 hours.? Sleepy behavior during the day ? Frustrated and cluster feeding throughout the night ?If spitting up amniotic fluid, spoon feeding can supplement??the feeds ? Skin to Skin helps engage and stimulate our to help them identify their own hunger ? Assisted mother with infant latch to??left??breasts.?Baby had??nutritivesuck.? Swallowing??intermittent. ??Infant fed for a total of??10 minutes with IBCLC.?? Encouraged breast compressions when baby slows his sucks. ?? Education given on stomach size.?? FOB states baby has been spitting up after formula supplementation.?? Reviewed amounts of supplementation need. Consultation reference guide given to mother with contact information for services and ongoing support as needed.?? OB Summary : 2 . Baby A - Weight: 4.09 kg Baby A - Date, Time of : 11/28/22 01:00:00 Baby A - Gender: Male EGA at Documented Date, Time: 41W 2D Weight at Delivery Baby A - Delivery Type: , low transverse OB History History?(1,0,0,1)? # 1 ?Baby 1 ?Outcome Date:??07/07/2020?Outcome or Result:??, low transverse ?Gest Age:??40 weeks 4 days ? Outcome:??Live ? Sex:??Male?Wt:?3520 g ? Complications:??Meconium stained fluid Active Problem List Active Problem List ADHD - Attention deficit disorder with hyperactivity: (Medical) last treated around age 13 History of section: (Medical) Obese class I: (Medical) : (Obstetric) (01/28/22) Home Medications Ferrous Sulfate: 325 mg = 1 tablet, By Mouth, Daily Multivitamin, : 1 tablet, Chew, Daily Medications Medications (15) Active SCHEDULED: (3) Docusate Sodium 100 mg Capsule (Docusate Sodium Capsule) ??100 mg 1 capsule, By Mouth, 2 times a day Ibuprofen 800 mg Tablet (Ibuprofen Tablet) ??800 mg, By Mouth, Every 8 hours Ketorolac 30 mg/mL Inj (Ketorolac Inj) ??15 mg 0.5 mL, IV Push Slowly, Every 6 hours CONTINUOUS: (3) Lactated Ringers (1000 mL) Cont IV 1,000 mL (Lactated Ringers 1,000 mL) ??1,000 mL, IV Infusion, 125 mL/hr Lactated Ringers (1000 mL) Cont IV 1,000 mL (Lactated Ringers 1,000 mL) ??1,000 mL, Intrauterine, 125 mL/hr Lactated Ringers (1000 mL) Cont IV 1,000 mL (Lactated Ringers 1,000 mL) ??1,000 mL, IV Infusion, 125 mL/hr PRN: (9) Acetaminophen 325 mg Tablet (acetaminophen 325 mg oral tablet) ??650 mg, By Mouth, Every 4 hours FENTanyl 50 mcg/mL Inj (2 mL) (FENTanyl Inj) ??25 mcg 0.5 mL, IV Push, Every 5 minutes Metoclopramide 5 mg/mL Inj (2 mL) (Metoclopramide Inj) ??10 mg, IV Push, Every 6 hours nalOXONE ??400mcg/mL Inj (nalOXONE Inj) ??0.1 mg 0.25 mL, IV Push Slowly, Every 15 minutes OxyCODONE 5 mg IR Tablet (OxyCODONE IR Tablet) ??5 mg, By Mouth, Every 3 hours OxyCODONE 5 mg IR Tablet (OxyCODONE IR Tablet) ??10 mg, By Mouth, Every 3 hours OxyCODONE 5 mg IR Tablet (OxyCODONE IR Tablet) ??5 mg, By Mouth, Every 3 hours OxyCODONE 5 mg IR Tablet (OxyCODONE IR Tablet) ??10 mg, By Mouth, Once Simethicone 80 mg Chewable Tablet (Simethicone Tablet) ??80 mg, Chew, 3 times a day Patient Care team information Care Team Personnel Name: Sean Sparrow MD Position: S Outreach Member Role: PCP Address: Address: [address] [place] [address] [place] [address]- [place] Name: Dolores Bowles Position: S OB RN Member Role: OB RN Name: Magdiel Mac RN Position: S OB RN Member Role: OB RN Care Team Related Persons Name: LINDSAY CRAWFORD Address: [id number] Address: home [address] [place] [address] [place] Name: ALESHA CRAWFORD Address: [id number] Address: home [address] [place] [address] [place] Name: CHASIDY CHIN Address: home [address] [place] [address] Name: ANDREW AHMADI Address: home [address] [place] [address]
--- OUTSIDE RECORDS SUMMARY | 2023-12-20 11:00 | XMS_ITS | Continuity of Care Document ---
Author Organization [facility] Address [address] [place] [id number]- Care Team Providers Care Biological Photographer Name Role Phone Sean Sparrow MD [id number] Date(s): 01/20/23 - 04/02/[address] [address] Attending Physician: Not on Staff, Attending MD Allergies, Adverse Reactions, Alerts No Known Allergies Immunizations Given and Recorded Vaccine Date Status Refusal Reason tetanus/diphtheria/pertussis, acel(Tdap) 09/07/22 Given tetanus/diphtheria/pertussis, acel(Tdap) 04/12/20 Given SARS-CoV-2 mRNA ([id number]) vax 04/30/22 Given influenza virus vaccine, inactivated 06/06/20 Give n Medications acetaminophen 325 mg oral tablet 975 mg, 3, tablet, By Mouth, Every 8 hours, PRN, # 60 tablet, Refills 0, Tot. Refills 0, Maintenance, Pain , Moderate, 12/01/22 9:22:00 EDT, Route to Pharmacy Electronically, [facility]/pharmacy #[id number], Partial fill upon patient request if the [...] Team Personnel Name: Sean Sparrow MD Position: [facility] Outreach Member Role: PCP Address: Address: [address] [place] [address] [place] [address]- Care Team Related Persons Name: LINDSAY OROZCO Address: [id number] Address: home [address] [place] [id number] [place] Name: CHASIDY CHIN Address: [address] [place] [address] Name: WESLY TURPIN Address: [address] Address: home [address] [place] [id number] Name: ANDREW AHMADI Address: home [address] [place] [address]
--- OUTSIDE RECORDS SUMMARY | 2023-12-20 11:00 | XMS_ITS | Continuity of Care Document ---
Author Organization [facility] Address [address] [place] [address]- Care Team Providers Care Gas Meter Repair Supervisor Name Role Phone Megha MEIER, Jigna Primary Care Physician Encounter [facility] [place] Date(s): 06/24/20 - 08/07/[address] [address]- Attending Physician: Not on Staff, Attending MD Allergies, Adverse Reactions, Alerts Substance Reaction Severity Status NKA Active Immunizations Given and Recorded Vaccine Date Status Refusal Reason influenza virus vaccine, inactivated 06/06/20 Give n tetanus/diphtheria/pertussis, acel(Tdap) 04/12/20 Given Medications docusate sodium 100 mg oral capsule 1 capsule = 100 mg, By Mouth, 2 times a day, PRN as needed for constipation, # 60 capsule, 0 Refills, Maintenance, 07/11/20 19:07:00 EST, Capsule, [facility]/pharmacy #[id number], Partial fill upon patient request, 160, cm, 07/11/20 16:55:00 EST, Height, 81.2, kg,... Start Date: 07/11/20 Status: Ordered ferrous sulfate 325 mg oral enteric coated tablet 325 mg, 1, tablet, By Mouth, 2 times a day, # 60 tablet, Refills 1, Tot. Refills 1, Maintenance, 07/11/20 19:06:00 EST, Route to Pharmacy Electronically, [facility]/pharmacy #[id number], 160, cm, 07/11/20 16:55:00 EST, Height, 81.2, kg, 07/07/20 5:34:00 EST, Dry W... Start Date: 07/11/20 Stop Date: 09/09/20 Status: Ordered ibuprofen 600 mg oral tablet 600 mg, 1, tablet, By Mouth, Every 6 hours, PRN, # 30 tablet, Refills 1, Tot. Refills 1, Acute 08/10/20 19:08:00 EST, Pain , Moderate, 07/11/20 19:07:00 EST, Route to Pharmacy Electronically, [facility]/pharmacy #[id number], Partial fill upon patient request, 160,... Start Date: 07/11/20 Stop Date: 08/10/20 Status: Ordered oxyCODONE 5 mg oral tablet 5 mg, 1, tablet, By Mouth, Every 6 hours, PRN, # 12 tablet, Refills 0, Tot. Refills 0, Acute 08/24/20 19:07:00 EST, as needed for pain, 07/11/20 19:07:00 EST, [id number] fill upon patient request, 160... Start Date: 07/11/20 Stop Date: 08/24/20 Status: Ordered Multivitamins with Folic Acid 1 mg oral capsule 1 capsule, By Mouth, Daily, # 100 capsule, 2 Refills, Maintenance, 02/07/20 1:53:00 EDT, Capsule, [facility]/pharmacy #[id number], 1 capsule By Mouth Daily, 68.2, kg, 02/06/20 23:59:00 EDT, Dry Weight Start Date: 02/07/20 Status: Ordered simethicone 80 mg oral tablet 1 tablet = 80 mg, Chew, 3 times a day after meals, PRN as needed for gas, # 60 tablet, 0 Refills, Acute 08/10/20 19:07:00 EST, 07/11/20 19:07:00 EST, Tablet, [facility]/pharmacy #[id number], Partial fill upon patient request, 160, cm, 07/11/20 16:55:00 EST, Height... Start Date: 07/11/20 Stop Date: 08/10/20 Status: Ordered Tylenol 325 mg oral capsule 2 capsule = 650 mg, By Mouth, Every 4 hours, PRN as needed for pain, # 60 capsule, 1 Refills, Acute08/10/20 19:07:00 EST, 07/11/20 19:07:00 EST, Capsule, [facility]/pharmacy #[id number], Partial fill upon patient request, 160, cm, 07/11/20 16:55:00 EST, Height, 8... Start Date: 07/11/20 Stop Date: 08/10/20 Status: Ordered Problem List Condition Effective Dates Status Health Status Inform ant ADHD - Attention deficit dis order with hyperactivity(Confirmed) 1 Active Anemia affecting , antepartum(Confirmed) Active Sleep disorder(Confirmed) Active Vocalization(Confirmed) Active 1last treated around age 13 Social History Social History Type Response Smoking Status Never (less than 100 in lifetime) entered on: 02/07/20 Sex
--- OUTSIDE RECORDS SUMMARY | 2023-12-20 11:00 | XMS_ITS | Continuity of Care Document ---
Author Organization [facility] Address [address] [place] [address]- Care Team Providers Care Plumbing And Heating Contractor Name Role Phone Sean Sparrow MD Primary Care Physician Encounter [facility] [place] Date(s): 04/07/23 - 05/07/[address] [address] Attending Physician: Admtr, Andrea Admitting Physician: Admtr, Ar8 Referring Physician: Admtr, Ar8 Allergies, Adverse Reactions, Alerts No Known Allergies Immunizations Given and Recorded Vaccine Date Status Refusal Reason tetanus/diphtheria/pertussis, acel(Tdap) 09/07/22 Given tetanus/diphtheria/pertussis, acel(Tdap) 04/12/20 Given SARS-CoV-2 mRNA ([id number]) vax 04/30/22 Given influenza virus vaccine, inactivated 06/06/20 Give n Medications acetaminophen 325 mg oral tablet 975 mg, 3, tablet, By Mouth, Every 8 hours, PRN, # 60 tablet, Refills 0, Tot. Refills 0, Maintenance, Pain , Moderate, 12/01/22 9:22:00 EDT, Route to Pharmacy Electronically, [facility]/pharmacy #[id number], Partial fill upon patient request if the [...] MD Position: [facility] Outreach Member Role: PCP Address: Address: [address] [place] [address] [place] [address]- Care Team Related Persons Name: LINDSAY OROZCO Address: [address] Address: home [address] [place] [address] [place] Name: CHASIDY CHIN Address: [address] [place] [address] Name: WESLY TURPIN Address: [address] Address: home [address] [place] [address] Name: ANDREW AHMADI Address: home [address] [place] [address]
--- OUTSIDE RECORDS SUMMARY | 2023-12-20 11:00 | XMS_ITS | Continuity of Care Document ---
Author Organization [facility] Address [address] [place] [address]- Care Team Providers Care Corporate Accountant Name Role Phone Megha MEIER, Jigna Primary Care Physician [phone] Encounter [facility] [place] Date(s): 05/23/20 - 06/29/[address] [address]- [facility] Attending Physician: Not on Staff, Attending MD [...] 06/13/20 8:17:00 EDT, Route to Pharmacy Electronically, [facility]/pharmacy #[id number], 152.5, cm, 06/12/20 10:14:00 EDT, Height, 68.2, kg, 02/06/20 23:59:00 EDT, Dry... Start Date: 06/13/20 Stop Date: 08/12/20 Status: Ordered Multivitamins with Folic Acid 1 mg oral capsule 1 capsule, By Mouth, Daily, # 100 capsule, 2 Refills, Maintenance, 02/07/20 1:53:00 EDT, Capsule, [facility]/pharmacy #[id number], 1 capsule By Mouth Daily, 68.2, [...]
--- OUTSIDE RECORDS SUMMARY | 2023-12-20 11:00 | XMS_ITS | Continuity of Care Document ---
Author Organization [facility] Address [address] [place] [address]- Care Team Providers Care Press Leader Name Role Phone Sean Sparrow MD Primary Care Physician Encounter [facility] Date(s): 06/08/22 - 07/08/[address] [address] Allergies, Adverse Reactions, Alerts No Known Allergies Immunizations Given and Recorded Vaccine Date Status Refusal Reason SARS-CoV-2 mRNA ([id number]) vax 04/30/22 Given influenza virus vaccine, inactivated [...] Team Personnel Name: Sean Sparrow MD Position: [facility] Outreach Member Role: PCP Address: Address: [address] [place] [address]- Care Team Related Persons Name: LINDSAY OROZCO Address: [address] Address: home [address] [place], [place] Name: CHASIDY CHIN Address: home [address] [place] [address] Name: ANDREW AHMADI Address: home [address] [place] [address]
--- OUTSIDE RECORDS SUMMARY | 2023-12-20 11:00 | XMS_ITS | Continuity of Care Document ---
Author Organization [facility] Address [address] [place] [address]- Care Team Providers Care Sound Effects Supervisor Name Role Phone Sean Sparrow MD Primary Care Physician Encounter [facility] Date(s): 11/09/22 - 12/09/[address] [address]- Allergies, Adverse Reactions, Alerts No Known Allergies Immunizations Given and Recorded Vaccine Date Status Refusal Reason tetanus/diphtheria/pertussis, acel(Tdap) 09/07/22 Given tetanus/diphtheria/pertussis, acel(Tdap) 04/12/20 Given SARS-CoV-2 mRNA ([id number]) vax 04/30/22 Given influenza virus vaccine, inactivated 06/06/20 Give n Medications acetaminophen 325 mg oral tablet 975 mg, 3, tablet, By Mouth, Every 8 hours, PRN, # 60 tablet, Refills 0, Tot. Refills 0, Maintenance, Pain , Moderate, 12/01/22 9:22:00 EDT, Route to Pharmacy Electronically, [facility]/pharmacy #[id number], Partial fill upon patient request if the prescription is... Start Date: 12/01/22 Status: Ordered ferrous sulfate 325 mg oral enteric coated tablet 325 mg, 1, tablet, By Mouth, Daily, # 30 tablet, Refills 6, Tot. Refills 6, Maintenance, 09/18/22 17:54:00 EST, Route to Pharmacy Electronically, [facility]/pharmacy #[id number], Partial fill upon patient requestif the [...] 12/01/22 9:22:00 EDT, REC Powder, [facility]/pharmacy #[id number], Partial fill upon patient request if the prescription is for a schedule II opioid drug., 17 Gm By Mouth... Start Date: 12/01/22 Status: Ordered oxyCODONE 5 mg oral tablet 5 mg, 1, tablet, By Mouth, Every 3 hours, PRN, (7-10), # 10 tablet, Refills 0, Tot. Refills 0, Maintenance, Pain , Severe, 12/01/22 9:22:00 EDT, Route to Pharmacy Electronically, [facility]/pharmacy #[id number], Partial fill upon patient request if the prescriptio... Start Date: 12/01/22 Status: Ordered Multivitamins with Folic Acid 1.4 mg oral tablet, chewable 1 tablet, Chew, Daily, # 90 tablet, 2 Refills, Maintenance, 06/08/22 18:36:00 EDT, Chew Tablet, [facility]/pharmacy #[id number], Partial fill upon patient request if the prescription is for a schedule II opioid drug., 1 tablet Chew Daily, 164, cm, 04/30/22 14:48:0... Start Date: 06/08/22 Status: Ordered senna - oral tablet 2 tablet, By Mouth, Daily at bedtime, PRN for constipation, # 120 tablet, 0 Refills, Maintenance, 12/01/22 9:22:00 EDT, Tablet, [facility]/pharmacy #[id number], Partial fill upon patient request if the prescription is for a schedule II opioid drug., 165, cm, 12/01... Start Date: 12/01/22 Status: Ordered simethicone 80 mg oral tablet, chewable 80 mg, Chew, 3 times a day, PRN, # 60 tablet, Refills 0, Tot. Refills 0, Maintenance, Gas, 239:22:00 EDT, Route to Pharmacy Electronically, [facility]/pharmacy #[id number], Partial fill upon patient request if the [...] Personnel Name: Sean Sparrow MD Position: [facility] Outreach Member Role: PCP Address: Address: [address] [place] [address] [place] [address]- Care Team Related Persons Name: LINDSAY OROZCO Address: [address] Address: [address] [place] [address] [place] Name: CHASIDY CHIN Address: [address] [place] [address] Name: WESLY TURPIN Address: [address] Address: home [address] [place] [address] [place] Name: ANDREW AHMADI Address: [address] [place] [address]
--- OUTSIDE RECORDS SUMMARY | 2023-12-20 11:00 | XMS_ITS | Continuity of Care Document ---
Author Organization [facility] Address [address] [place] [address]- Care Team Providers Care Dentist/Owner Name Role Phone Sean Sparrow MD Primary Care Physician Encounter [facility] Date(s): 12/03/22 - 01/02/[address] [address] Allergies, Adverse Reactions, Alerts No Known Allergies Immunizations Given and Recorded Vaccine Date Status Refusal Reason tetanus/diphtheria/pertussis, acel(Tdap) 09/07/22 Given tetanus/diphtheria/pertussis, acel(Tdap) 04/12/20 Given SARS-CoV-2 mRNA ([id number]) vax 04/30/22 Given influenza virus vaccine, inactivated 06/06/20 Give n Medications acetaminophen 325 mg oral tablet 975 mg, 3, tablet, By Mouth, Every 8 hours, PRN, # 60 tablet, Refills 0, Tot. Refills 0, Maintenance, Pain , Moderate, 12/01/22 9:22:00 EDT, Route to Pharmacy Electronically, [facility]/pharmacy #[id number], Partial fill upon patient request if the prescription is... Start Date: 12/01/22 Status: Ordered ferrous sulfate 325 mg oral enteric coated tablet 325 mg, 1, tablet, By Mouth, Daily, # 30 tablet, Refills 6, Tot. Refills 6, Maintenance, 09/18/22 17:54:00 EST, Route to Pharmacy Electronically, [facility]/pharmacy #[id number], Partial fill upon patient requestif [...] Refills, Maintenance, 12/01/22 9:22:00 EDT, REC Powder, [facility]/pharmacy #[id number], Partial fill upon patient request if the prescription is for a schedule II opioid drug., 17 Gm By Mouth... Start Date: 12/01/22 Status: Ordered oxyCODONE 5 mg oral tablet 5 mg, 1, tablet, By Mouth, Every 3 hours, PRN, (7-10), # 10 tablet, Refills 0, Tot. Refills 0, Maintenance, Pain , Severe, 12/01/22 9:22:00 EDT, Route to Pharmacy Electronically, [facility]/pharmacy #[id number], Partial fill upon patient request if the prescriptio... Start Date: 12/01/22 Status: Ordered Multivitamins with Folic Acid 1.4 mg oral tablet, chewable 1 tablet, Chew, Daily, # 90 tablet, 2 Refills, Maintenance, 06/08/22 18:36:00 EDT, Chew Tablet, [facility]/pharmacy #[id number], Partial fill upon patient request if the prescription is for a schedule II opioid drug., 1 tablet Chew Daily, 164, cm, 04/30/22 14:48:0... Start Date: 06/08/22 Status: Ordered senna - oral tablet 2 tablet, By Mouth, Daily at bedtime, PRN for constipation, # 120 tablet, 0 Refills, Maintenance, 12/01/22 9:22:00 EDT, Tablet, [facility]/pharmacy #[id number], Partial fill upon patient request if the prescription is for a schedule II opioid drug., 165, cm, 12/01... Start Date: 12/01/22 Status: Ordered simethicone 80 mg oral tablet, chewable 80 mg, Chew, 3 times a day, PRN, # 60 tablet, Refills 0, Tot. Refills 0, Maintenance, Gas, 04/04/239:22:00 EDT, Route to Pharmacy Electronically, [facility]/pharmacy #[id number], Partial fill upon patient request if the [...] S Outreach Member Role: PCP Address: Address: [address] [place] [address] [place] [address]- Care Team Related Persons Name: LINDSAY OROZCO Address: [address] Address: home [address] [place] [address] [place] Name: CHASIDY CHIN Address: [address] [place] [address] Name: WESLY TURPIN Address: [address] Address: home [address] [place] [address] [place] Name: ANDREW AHMADI Address: [address] [place] [address]
--- OUTSIDE RECORDS SUMMARY | 2023-12-20 11:00 | XMS_ITS | Continuity of Care Document ---
Author Organization [facility] Address [address] [place] [address]- Care Team Providers Care Auto Dismantler Name Role Phone Sean Sparrow MD Primary Care Physician Encounter [facility] Date(s): 11/20/22 - 01/03/[address] [address] Attending Physician: Dee Pedro CNM Admitting Physician: Dee Pedro CNM Referring Physician: Dee Pedro CNM Allergies, Adverse Reactions, Alerts No Known Allergies Immunizations Given and Recorded Vaccine Date Status Refusal Reason tetanus/diphtheria/pertussis, acel(Tdap) 09/07/22 Given tetanus/diphtheria/pertussis, acel(Tdap) 04/12/20 Given SARS-CoV-2 mRNA ([id number]) vax 04/30/22 Given influenza virus vaccine, inactivated [...] Route to Pharmacy Electronically, [facility]/pharmacy #[id number], Partial fill upon patient request if the [...] 100 in lifetime) entered on: 02/07/20 Sex Hospital Progress note * Jewels Lima RN: PERFORM, SIGN, VERIFY Event Display: Progress Note Hospital Authored Date: [id number] Patient: MARLENA OROZCO Age: 22 years Sex: Female : 2000 Associated Diagnoses: None Author: Jewels Lima RN Findings Narrative/Incidental Chanel spoke to Pt about Feraheme infusion cancelled per MD's note and no orders in [facility]. Pt was toldto f/u with Dr. Pedro. . Discharge Information Case Management Discharge Plan : Case Management Discharge Plan Data 12/01/2022 11:22 EDT Discharge Level of Care at Discharge Home/Care Home/Foster Care Patient Care team information Care Team Personnel Name: Sean Sparrow MD Position: [facility] Outreach Member Role: PCP Address: Address: [address] [place] [address] [place] [address]- Care Team Related Persons Name: LINDSAY OROZCO Address: [address] Address: home [address] [address] [place] Name: CHASIDY CHIN Address: [address] [place] [address] Name: WESLY TURPIN Address: [address] Address: home [address] [place] [address] [place] Name: ANDREW AHMADI Address: [address] [place] [address]
--- OUTSIDE RECORDS SUMMARY | 2023-12-20 11:00 | XMS_ITS | Continuity of Care Document ---
Author Organization [facility] ter Address [address] [place] [address]- Care Team Providers Care Data Processing Mechanic Name Role Phone Sean Sparrow MD Primary Care Physician Encounter [facility] Date(s): 07/27/22 - 07/27/[address] [address] Discharge Disposition: A-D/C Home Attending Physician: Lane Castro MD Admitting Physician: Lane Castro MD Referring Physician: Lane Castro MD Allergies, Adverse Reactions, Alerts No Known Allergies Immunizations Given and Recorded Vaccine Date Status Refusal Reason SARS-CoV-2 mRNA (avrikom-[id number]-bwqfe) vax 04/30/22 Given influenza virus vaccine, inactivated 06/06/20 Give n tetanus/diphtheria/pertussis, acel(Tdap) 04/12/20 Given Medications metroNIDAZOLE 500 mg oral tablet 1 tablet = 500 mg, By Mouth, Every 12 hours, for 7 days, # 14 tablet, 0 Refills, Acute 07/31/22 12:18:00 EST, 07/24/22 12:18:00 EST, Tablet, [id number], Partial fill upon patient request if the prescription is for a schedule II opioid drug., 1... Start Date: 07/24/22 Stop Date: 07/31/22 Status: Ordered Multivitamins with Folic Acid 1 [...] Refills, Maintenance, 06/08/22 18:36:00 EDT, Chew Tablet, [id number], Partial fill upon patient request [...] tablet, 3 Refills, Maintenance, 06/08/22 18:30:00 EDT, [id number], Partial fill upon patient request [...] Confirmed Active 1last treated around age 13 Vital Signs Most recent to oldest [Reference Range]: 1 Oxygen Saturation [94-100 %] 98 % (07/27/22 12:47 PM) Blood Pressure [90-138/55-84 mm Hg] 97/4 7mm Hg (07/27/22 12:47 PM) Blood pressure sites Arm, left (07/27/22 12:47 PM) Social History Social History Type Response Smoking Status Never (less than 100 in lifetime) entered on: 02/07/20 Sex History and physical note * Zita Shipman DO: PERFORM Event Display: History and Physical Hospital Authored Date: Patient: ??ALESHA OROZCO ? Age:??22 Years?Sex:??Female?:??2000?? OB Reason for Admission OB Reason for Admission?? No qualifying data available. LMP/EGA/JULIET Gestational Age (EGA) and JULIET? * Note: EGA calculated as of 07/27/2022 ?? JULIET:??11/19/2022?EGA*:??23 weeks 4 days ? History?(1,0,0,1)?Method:??Ultrasound??(04/22/2022) History of Present Illness Alesha is a 22 year old at 23 weeks and 4 days gestation who presents to [facility] for evaluation after an episode of bleeding and cramping over the weekend.?? She reports??spotting and cramping on Wednesday. She went to [facility] for evaluation and was told her cervix was closed and??she had no bleeding. She was diagnosed with trichomoniasis??in April, but just??started her treatment today. She denies any current cramping, vaginal bleeding, loss of fluid, or decreased movement. ?? Review of Systems As per HPI, the remainder or the ROS is as follows: Constitutional:??No weight loss, fever, chills, weakness or fatigue. HEENT:??No visual loss, blurred vision, double vision. No hearing loss, sneezing, congestion, runnynose or sore throat. Skin:??No rash or itching. Cardiovascular:??No chest pain, chest pressure or chest discomfort. No palpitations. Respiratory:??No shortness of breath, cough or sputum production. Gastrointestinal:??No anorexia, nausea/vomiting, constipation/diarrhea. No abdominal pain. Genitourinary:??No burning micturition. No urinary frequency or incontinence. Gynecologic: No vaginal bleeding, vaginal discharge, or vaginal itching. Neurologic:??No headache, dizziness, syncope. Musculoskeletal:??No muscle pain, back pain, joint pain or stiffness. Psychiatric:??No depression or anxiety. Physical Exam Vitals & Measurements HR:??74(Monitored)?? BP:??97/47?? SpO2:??98%?? Constitutional: Pleasant, alert, cooperative, no acute distress. Lungs: Unlabored breathing. Clear to auscultation bilaterally with full symmetric breath sounds,??no crackles, no wheezing,??or rhonchi.? Cardiovascular: S1/S2, Regular rate and rhythm, no murmurs.? Abdomen/GI: Gravid, firm, non-tender Green Building Energy Engineer: Normal appearing external genitalia, no gross LOF or VB. No lesions. Extremities: No edema present bilaterally, no calf erythema Skin: No rash or jaundice. Neurological/Psychiatric: Appearance appropriate, mood and affect stable. ?? Heart Rate: 140 bpm OB Assessment Baby A Baseline:140 Baseline Description:Normal, 110-160 bpm Baseline Variability:Moderate variability Accelerations:Present Deceleration:None Activity:Present Assessment/Plan Assessment:??Patient is a 22 year old at 23 weeks and 4 days gestation who presents to [facility] evaluation after an episode of bleeding and cramping over the weekend. She has no obstetric complaints at this time. status is reassuring with a normal heart rate. She was encouraged to continue her course of flagyl for trichomoniasis treatment. We discussed that trichomoniasis can cause bleeding and cramping, and may explain her previous symptoms. She was encouraged to return with any regular??contractions, vaginal bleeding, loss of fluid, or decreased movement. [place] follow up at her next appointment on 08/21 in clinic. ?? (Z34.90):? -normal heart rate -return precautions discussed -follow up on 08/21 for DUONG ?? Trichomonosis (A59.9):? -continue course of flagyl x7 days ?? Patient seen and plan discussed with Meron Hernandez CNM. OB History History?(1,0,0,1)? # 1 ?Baby 1 ?Outcome Date:??07/07/2020?Outcome or Result:??, low transverse ?Gest Age:??40 weeks 4 days ? Outcome:??Live ? Sex:??Male?Wt:?3520 g ? Complications:??Meconium stained fluid Labs Labs Labs & Tests ABO: B (04/16/22) Antibody Screen: Negative (04/16/22) Chlamydia Trachomatis Amplified Probe: NEGATIVE (04/30/22) Down Syndrome Age Risk FTS: Age Risk: (05/13/22) Down Syndrome Scrn Risk FTS: Screening Risk: (05/13/22) Hct: 37 % (04/16/22) Hemoglobinopathy Interpretation: Normal hemoglobins. (04/16/22) Hepatitis B Surface Antigen: NEGATIVE (04/16/22) Hepatitis C Ab: NEGATIVE (04/16/22) Hgb: 12.6 Gm/dL (04/16/22) HIV 4th Generation Ab-Ag Result: NEGATIVE (04/16/22) RH Test Only: Positive (04/16/22) RPR Titer Result: NOT INDICATED (04/16/22) Rubella IgG Ab: POSITIVE (04/16/22) Syphilis Screen by PIPPA: NEGATIVE (04/16/22) Trisomy 18 Scrn Risk FTS: Screening Risk: (05/13/22) Urine Culture: Urine Culture (04/16/22) Varicella IgG Ab: POSITIVE (04/16/22) Problem List Active Active Problem List ADHD - Attention deficit disorder with hyperactivity: (Medical) last treated around age 13 History of section: (Medical) Intra-amniotic infection of fetus: (Nursing) Problem added by Discern Expert (07/07/20) Nausea and vomiting during prior to 22 weeks gestation: (Medical) : (Obstetric) (01/28/22) Sleep disorder: (Medical) Vocalization: (Medical) Procedure/Surgical History delivery only;: 07/07/20 Home Medications Doxylamine: See Instructions, take 1 tablet by mouth at bedtime Metronidazole: 500 mg = 1 tablet, By Mouth, Every 12 hours Multivitamin, : 1 tablet, By Mouth, Daily Multivitamin, : 1 tablet, Chew, Daily Pyridoxine: See Instructions, 1 tablet By Mouth 3 times Daily Allergies NKA Social History Alcohol Use: Never., 02/07/2020 Electronic Cigarette/Vaping Electronic Cigarette Use: Never., 04/13/2022 Employment/School Status: Employed. Other: [employer] 04/13/2022 Exercise Self assessment: Good condition. Regular [...] history reported. Plan No Data Found * Meron Hernandez CNM: PERFORM Event Display: History and Physical Hospital Authored Date: I have seen, evaluated and counseled the patient with the PGY3 and agree with assessment and plan of care. ?? Note * Jenifer Morrow V: PERFORM Event Display: Discharge/Transfer Note Hospital Authored Date: Nursing Discharge Note Entered On: 07/27/2022 14:51 EST Performed On: 07/27/2022 14:51 EST by Jenifer Morrow V Nursing Discharge Note 2 Discharge Time : 07/27/2022 12:30 EST Discharge Level of Care at Discharge : Home w/ Hospice Patient Left Unit Via : Ambulatory Patient Accompanied Off Unit with : Other: self DC Instructions Provided & Signed by Pt : Yes Patient Understands D/C Instructions : Yes Patient Instructions Discharge Signed : No Jenifer Morrow V - 07/27/2022 14:51 EST * Cristhian, Jenifer V: PERFORM Event Display: Patient Education/Instruction Authored Date: [id number] Inpatient Adult Discharge Instructions [address] [address] Name: ALESHA OROZCO : 2000 Visit: 07/27/2022 11:30:00 Current Date: 07/27/2022 13:37 Account: [id number] Inpatient Adult Discharge Instructions We would like [...] and their families. Surveys are administered by [employer] ?? If further treatment with your primary care physician or another doctor is recommended, it is important for you to keep the appointment. Call your primary care physician or return to the Emergency Department immediately if your condition worsens, fails to improve, or new symptoms develop. If you need to find a doctor, you can call [facility] [employer] for a referral at [phone] or toll free at [phone]) or log in to [email or web address].. ?? You can view and manage your care through the patient portal or by using a health care geeta of your choosing. [employer] is a website that allows you to securely view your medical information including your hospital discharge summary, office visit summaries, medications and follow-up visits. You can also request appointments, renew medications, and request access to your medical information using a health care geeta of your choosing, or just ask a question. You can enroll at [email or web address] or register during your next office visit. You have been discharged from [facility], Patient Care Unit: WETU1. If you have any questions regarding these instructions after you leave, please call us and we will be happy to assist you. [facility] Your Care Team Attending Physician Lane Castro MD Your Diagnosis Trichomonosis Tests Performed Below is a partial list of the tests performed during your hospitalization. You may have had other tests and procedures not included in this list. Please discuss all test results with your provider. Primary Care Provider Sean Sparrow MD Advance Directive Health Care Proxy on File Yes - Health Care Proxy No qualifying data available. Discharge Vitals Systolic Blood Pressure: 97 mm Hg Diastolic Blood Pressure:??47 mm Hg??Low Oxygen Saturation: 98 % Studies Pending All tests and labs ordered during this hospital stay have been completed unless listed below. Please discuss all pending results with your provider listed above in these instructions. ?? No incomplete studies found What to do next Instructions From Your Doctor Discharge Orders Scheduled Follow-Up Appointments Wednesday 12:20 PM EST ?? With: Dee Pedro CNM Where: [facility] - [address] - 2021 12:00 PM EST ?? With: Where: [address] - Wednesday 3:00 PM EST ?? With: Emmie MEIER [facility] Where: [address] - 2022 4:20 PM EST ?? With: Dee Pedro CNM Where: [address] - Wednesday 11:00 AM EST ?? With: Viridiana Barreto CNM Where: [address] - Wednesday 11:00 AM EST ?? With: Viridiana Barreto CNM Where: [address] [address]- Discharge Medications ERNESTOALESHA :2000 Visit Date:07/27/2022 Medications: Please continue your medications until treatment is completed or stopped by your provider. Medications not listed below should be discontinued. Discuss any questions related to medications with your provider. What How Much When Why Instructions Next Dose Unchanged Doxylamine (Unisom 25 mg oral tablet) See instructions Nausea/vomiting in take 1 tablet by mouth at bedtime ?? Unchanged Metronidazole (metroNIDAZOLE 500 mg oral tablet) 1 tab(s) Oral Every 12 hours Duration: 7 Days Unchanged Multivitamin, ( Multivitamins with Folic Acid 1 mg oral tablet) 1 tab(s) Oral Daily Unchanged Multivitamin, ( Multivitamins with Folic Acid 1.4 mg oral tablet, chewable) 1 tab(s) Chew Daily Unchanged Pyridoxine (Vitamin B6 25 mg oral tablet) See instructions Nausea/vomiting in 1 tablet By Mouth 3 times Daily ?? Test Results Below is a partial list of the most recent Laboratory test results done prior to this discharge. You may have had other tests and procedures not included in this list. Please discuss all test resultswith your provider. Allergies (NKA means No Known Allergies) NKA Problems Active Problems??(7) ADHD - Attention deficit disorder with hyperactivity?? History of section?? Intra-amniotic infection of fetus?? Nausea and vomiting during prior to 22 weeks gestation? Sleep disorder?? Vocalization?? Education Materials Below is the list of Educational Leaflet Providered with your Discharge Instructions. Adapting to : Third Trimester?? Kick Counts?? Valuables and Belongings I fully understand and agree that [facility] accepts no responsibility for all my personal [...] encouraged to send valuables and belongings home. ? Common Emergency Awareness Tips IS IT [...] are strongly encouraged to quit. Please call [facility] [employer] Link at [phone] or 6-082-819Mr. Youth ([phone]) or log in to [email or web address] for referrals to smoking cessation programs. ?? The National Suicide Prevention Hotline is available 22/03 if you or someone you know needs to find a reason to keep living. By calling 0-204-960-[employer]aging (6215) you'll be connected to a skilled, trained counselor at a crisis center in your area. INPATIENT DISCHARGE INSTRUCTIONS SIGNATURE PAGE ALESHA OROZCO Location:[facility] Registration Date and Time:07/27/2022 11:30 [facility] Primary Care Physician: Kyara MEIER, Sean, I ALESHA OROZCO, have received the above patient education materials/instructions and have verbalized understanding. If ambulance or transport services are being used I further acknowledge beinggiven a choice of service. ?? If you need to contact me, please call me at this number: . Patient/Security Operations Analyst Name: Patient/Security Operations Analyst Signature: Relationship to Patient: Witness Name/Signature: Date: * Jenifer Morrow V: PERFORM Event Display: Patient Education Leaflets Authored Date: Adapting to : Third Trimester ?? [address] Adapting to : Third Trimester Although common during , some discomforts may seem worse in the final weeks. Simple lifestyle changes can help. Take care of yourself. And ask your partner to help out with small tasks. Limiting leg problems Ways to combat leg issues: ??? Wear support hose all day. ??? Don't wear snug shoes or clothes thatbind, such as tight pants and socks with elastic tops. ??? Sit with your feet and legs raised often. ?? Caring for your breasts Tips to follow include: ??? Wash with plain water. Don't use harsh soaps or rubbing alcohol. They may cause dryness. ??? Wear a nursing bra for extra support. It can also hide any leaks from your nipples. ?? Controlling hemorrhoids Ways to prevent hemorrhoids include: ??? Eat foods that are high in fiber. Also exercise and drink enough fluids. This will reduce constipation and hemorrhoids. ??? Sleep and nap on your side. This limits pressure on the veins??of your rectum. ??? Try not to stand or sit for long periods. ?? Controlling back pain As your body changes during , your back must work in new ways. Back pain has many causes. Physical changes in your body can strain your back and its supporting muscles. Also hormones increase during . This can affect how??your muscles and joints work together. All of these changescan lead to pain. Pain may be felt in the upper or lower back. Pain is also common in the pelvis. Some womenhave sciatica. This is pain caused by pressure on the sciatic nerve running down the back of the leg. Ice or heat may help. Your provider may advise massage therapy or a chiropractor. Sleep on your left side with a pillow between your knees. Use a brace or support device. Ask your provider for speci fic tips and exercises to help control your back pain. ?? Tips to help you rest Good rest and sleep will help you feel better. Here are some ideas: ??? Ask your partner to massageyour shoulders, neck, or back. ??? Limit the errands you do each day. ??? Lie down in the afternoonor after work for a few minutes. ??? Take a warm bath before you go to sleep. ??? Drink warm milk or teas without caffeine. ??? Don't drink coffee, black tea, and cola. ?? Stopping heartburn ??? Don't eat spicy, greasy, fried,??or acidic foods. ??? Eat small amounts more often. Eat slowly. ??? Wait 2 hours after eating before lying down. ??? Sleep with your upper body raised 6 inches. ?? Managing mood swings Ways to manage mood swings include: ??? Know that mood changes are normal. ??? Exercise often, but get plenty of rest. ??? Address any concerns and limit stress. Talking to your partner, other women,or your healthcare provider may help. ?? Dealing with urinary frequency Tips to deal with having to urinate often include: ??? Drink plenty of water all day. But if you drink a lot in the evening, you may have to get up more in the night. ??? Limit coffee, black tea, andcola. ?? How daily issues affect your health Many things in your daily life impact your health. This can include transportation, money problems,housing, access to food, and children's service worker. If you can???t get to medical appointments, you may not receive the care you need. When money is tight, it may be difficult to pay for medicines. And living far from a grocery store can make it hard to buy healthy food. If you have concerns in any of these or other areas, talk with your healthcare team. They may know of local resources to assist you. Or they may have a staff person who can help. ?? Last Reviewed Date: 2021 ?? The [employer]. All rights reserved. This information is not intended as a substitute for professional medical care. Always follow your healthcare professional's instructions. ?? * Jenifer Morrow V: PERFORM Event Display: Patient Education Leaflets Authored Date: [id number] Kick Counts ?? 49609 Kick Counts It???s normal to worry about your baby???s health. One way you can know??your baby???s doing well is to record the baby???s movements once a day. This is called a kick count. ??Remember to take your kick count records to all your appointments with your healthcare provider. How to count kicks Time how long it takes you to feel 10 kicks, flutters, swishes, or rolls. Ideally, you want to feelat least 10 movements in 2 hours. You will likely feel 10 movements in less time than that. Starting at 28 weeks, count your baby's movements daily. Follow your healthcare provider's instructions for kick counting. Here are tips for counting kicks: ??? Choose a time when the baby is active,such as after a meal.? Sit comfortably or lie on your side.? The first time the baby moves,??write down??the time.? Count each movement until the baby has moved?? 10??times. This can take from 20 minutes to 2??hours.? If you haven't felt 10 kicks by the end of the second hour, wait a few hours. Then try again. ??? Try to do it at the same time each day. ?? When to call your healthcare provider Call your healthcare provider?? right away??if: ??? You do a couple sets of kick counts during the day and your baby moves fewer than 10??times in??2??hours. ??? Your baby moves much less often than on the??days before. ??? You haven't felt your baby move all day. ?? Last Reviewed Date: 2020 ?? 5351-4537 [employer]. All rights reserved. This information is not intended as a substitute for professional medical care. Always follow your healthcare professional's instructions. ?? Patient Care team information Care Team Personnel Name: Sean Sparrow MD Position: [facility] Outreach Member Role: PCP Address: Address: [address] [place] [address] [place] [address]- Care Team Related Persons Name: ERNESTO YOSEFTHERON Address: [address] Address: home [address] [place] [address] Name: CHASIDY CHIN Address: home [address] [place] [address] Name: ANDREW AHMADI Address: home [address] [place] [address]
--- OUTSIDE RECORDS SUMMARY | 2023-12-20 11:00 | XMS_ITS | Continuity of Care Document ---
Author Organization [facility] Address [address] [place] [address]- Care Team Providers Care Manager Travel Name Role Phone Sean Sparrow MD Primary Care Physician Encounter [facility] Date(s): 03/30/22 - 04/29/[address] [address]- Allergies, Adverse Reactions, Alerts No Known Allergies Immunizations Given and Recorded Vaccine Date Status Refusal Reason influenza virus vaccine, inactivated 06/06/20 Give n tetanus/diphtheria/pertussis, acel(Tdap) 04/12/20 Given Medications Multivitamins with Folic Acid 1 mg oral tablet 1 tablet, By Mouth, Daily, # 90 tablet, 2 Refills, Maintenance, 04/13/22 18:43:00 EDT, Tablet, [id number], Partial fill upon patient request if the prescription is for a schedule II opioid drug., 1 tablet By Mouth Daily, 164, cm, 10/31/21 12:2... Start Date: 04/13/22 Status: Ordered Problem List Condition Effective Dates Status Health Status Inform ant ADHD - Attention deficit dis order with hyperactivity(Confirmed) 1 Active Sleep disorder(Confirmed) Active Vocalization(Confirmed) Active 1last treated around age 13 Social History Social History Type Response Smoking Status Never (less than 100 in lifetime) entered on: 02/07/20 Sex Care Team Personnel Name: Sean Sparrow MD Address: [address] [facility] [place] [address]-
--- OUTSIDE RECORDS SUMMARY | 2023-12-20 11:00 | XMS_ITS | Continuity of Care Document ---
Author Organization [facility] Address [address] [place] [address]- Care Team Providers Care Lifter Name Role Phone Mendy Astorga MD Primary Care Physician Encounter [facility] Date(s): 04/19/20 - 05/19/[address] [address]- [facility] Allergies, Adverse Reactions, Alerts Substance Reaction [...] Refills, Maintenance, 02/07/20 1:53:00 EDT, Capsule, [id number], 1 capsule By Mouth Daily, 68.2, kg, [...]
--- OUTSIDE RECORDS SUMMARY | 2023-12-20 11:00 | XMS_ITS | Continuity of Care Document ---
Author Organization [facility] Address [address] [place] [address]- Care Team Providers Care Mold Shifter Name Role Phone Sean Sparrow MD Primary Care Physician [phone] Encounter [facility] Date(s): 01/21/21 - 05/08/[address] [address] Attending Physician: Not on Staff, [...]
--- OUTSIDE RECORDS SUMMARY | 2023-12-20 11:00 | XMS_ITS | Continuity of Care Document ---
Author Organization [facility] Address [address] [place] [address]- Care Team Providers Care Drosophere Operator Name Role Phone Rizwan MEIER, Mendy Zee Primary Care Physician Encounter [facility] Date(s): 11/23/19 - 12/23/19 [facility] [address] [address]- [facility] Attending Physician: Not on Staff, Attending MD Allergies, Adverse Reactions, Alerts Substance Reaction Severity Status NKA Active Problem List Condition Effective Dates Status Health Status Inform ant ADHD - Attention deficit dis order with hyperactivity(Confirmed) Active Sleep disorder(Confirmed) Active Vocalization(Confirmed) Active
--- OUTSIDE RECORDS SUMMARY | 2023-12-20 11:00 | XMS_ITS | Continuity of Care Document ---
Author Organization [facility] Address [address] [place] [address]- Care Team Providers Care Watermelon Harvesting Supervisor Name Role Phone Megha MEIER, Jigna Primary Care Physician Encounter [facility] Date(s): 08/14/20 - 11/13/[address] [address]- Attending Physician: Not on Staff, Attending MD [...]
[2023-12-20 11:07] VITALS: BP 142/59; PULSE 71; RESP 16; TEMP 36.8; O2SAT 98
== END 2023-12-20 11:09 | disposition home or self-care (01) ==
PROVIDERS: Emergency Provider Emergency Medicine
DX: S60.445A External constriction of left ring finger, initial encounter (principal); W49.04XA Ring or other jewelry causing external constriction, initial encounter; Y93.9 Activity, unspecified; Y92.9 Unspecified place or not applicable; Y99.9 Unspecified external cause status
CPT/HCPCS: 36415; 80053; 85025; 99282; 99283

== ENCOUNTER 2024-05-25 02:39 | Emergency (ER) | payer OTHER, SELFPAY ==
--- OUTSIDE RECORDS SUMMARY | 2024-05-25 05:56 | XMS_ITS | Continuity of Care Document ---
Author Organization [facility] Address [address] [place] [address]- Care Team Providers Care Shade Bander Name Role Phone Sean Sparrow MD Primary Care Physician [phone] [id number]16[facility]24 - 04/20/[address] [address] Attending Physician: Not on Staff, Attending MD Allergies, Adverse Reactions, Alerts No Known Allergies Immunizations Given and Recorded Vaccine Date Status Refusal Reason tetanus/diphtheria/pertussis, acel(Tdap) 09/07/22 Given tetanus/diphtheria/pertussis, acel(Tdap) 04/12/20 Given SARS-CoV-2 mRNA ([id number]-[id number]) vax 04/30/22 Given influenza virus vaccine, inactivated 06/06/20 Give n Medications acetaminophen 325 mg oral tablet 975 mg, 3, tablet, By Mouth, Every 8 hours, PRN, # 60 tablet, Refills 0, Tot. Refills 0, Maintenance, Pain , Moderate, 12/01/22 9:22:00 EDT, Route to Pharmacy Electronically, [facility]/pharmacy #[id number], Partial fill upon patient request if the [...] Team Personnel Name: Sean Sparrow MD Position: [facility] Outreach Member Role: PCP Address: Address: [address] [place] [address] [place] [address]- Care Team Related Persons Name: LINDSAY OROZCO Address: [address] Address: [address] [place] [address] [place] Name: CHASIDY CHIN Address: [address] [place] [address] Name: WESLY TURPIN Address: [address] Address: home [address] [place] [address] Name: ANDREW AHMADI Address: home [address] [place] [address]
--- OUTSIDE RECORDS SUMMARY | 2024-05-25 05:56 | XMS_ITS | Continuity of Care Document ---
Author Organization [facility] Address [address] [place] [address]- Care Team Providers Care Trimmer Operator Three Knife Name Role Phone Sean Sparrow MD Primary Care Physician [facility] Date(s): 04/03/24 - 05/03/[address] [address] Attending Physician: Admtr, Andrea Admitting Physician: Admtr, Ar8 Referring Physician: Admtr, Ar8 Allergies, Adverse Reactions, Alerts No Known Allergies Immunizations Given and Recorded Vaccine Date Status Refusal Reason tetanus/diphtheria/pertussis, acel(Tdap) 09/07/22 Given tetanus/diphtheria/pertussis, acel(Tdap) 04/12/20 Given SARS-CoV-2 mRNA ([id number]-fvtw-[id number]) vax 04/30/22 Given influenza virus vaccine, inactivated 06/06/20 Give n Medications acetaminophen 325 mg oral tablet 975 mg, 3, tablet, By Mouth, Every 8 hours, PRN, # 60 tablet, Refills 0, Tot. Refills 0, Maintenance, Pain , Moderate, 12/01/22 9:22:00 EDT, Route to Pharmacy Electronically, [facility]/pharmacy #[id number], Partial fill upon patient request if the [...] Team Personnel Name: Sean Sparrow MD Position: [facility] Outreach Member Role: PCP Address: Address: [address] [place] [address] [place] [address]- Care Team Related Persons Name: LINDSAY OROZCO Address: [id number] Address: [address] [place] [address] [place] Name: CHASIDY CHIN Address: [address] [place] [address] Name: WESLY TURPIN Address: [address] Address: [address] [place] [address] Name: ANDREW AHMADI Address: [address] [place] [address]
--- OUTSIDE RECORDS SUMMARY | 2024-05-25 05:57 | XMS_ITS | Continuity of Care Document ---
Author Organization [facility] Address [address] [place] [address]- Care Team Providers Care Rehab Spec Name Role Phone Sean Sparrow MD Primary Care Physician Encounter [facility] Date(s): 03/21/24 - 05/03/[address] [address] Attending Physician: Not on Staff, Attending MD Allergies, Adverse Reactions, Alerts No Known Allergies Immunizations Given and Recorded Vaccine Date Status Refusal Reason tetanus/diphtheria/pertussis, acel(Tdap) 09/07/22 Given tetanus/diphtheria/pertussis, acel(Tdap) 04/12/20 Given SARS-CoV-2 mRNA (hwfoajb-mwwt-naoaj) vax 04/30/22 Given influenza virus vaccine, inactivated 06/06/20 Give n Medications acetaminophen 325 mg oral tablet 975 mg, 3, tablet, By Mouth, Every 8 hours, PRN, # 60 tablet, Refills 0, Tot. Refills 0, Maintenance, Pain , Moderate, 12/01/22 9:22:00 EDT, Route to Pharmacy Electronically, [facility]/pharmacy #[id number], Partial fill upon patient request if the [...] CENTER Outreach Member Role: PCP Address: Address: [address] [place] [address] [place] [address]- Care Team Related Persons Name: LINDSAY OROZCO Address: [address] Address: [address] [place] [address] [place] Name: CHASIDY CHIN Address: [address] [place] [address] Name: WESLY TURPIN Address: [address] Address: home [address] [place] [address] Name: ANDREW AHMADI Address: [address] [place] [address]
[2024-05-25 06:15] LABS: Influenza A PCR NEGATIVE (Negative); Influenza B PCR NEGATIVE (Negative); Resp Syncy Virus RNA Qual PCR NEGATIVE (Negative); SARS COV2 PCR INHOUSE POSITIVE (Negative)
== END 2024-05-25 05:01 | disposition home or self-care (01) ==
PROVIDERS: Emergency Provider Emergency Medicine
DX: R51.9 Headache, unspecified (principal); Z03.818 Encounter for observation for suspected exposure to other biological agents ruled out
CPT/HCPCS: 0241U; 99283